=== PATIENT | female | born 1935 | race Caucasian/White ===

== ENCOUNTER 2016-10-23 07:52 | Inpatient (IN) | payer OTHER ==
[2016-10-23] VITALS (8 sets, daily range): BP systolic 124–185; BP diastolic 65–81; PULSE 72–128; RESP 17–24; Ht 162.6 cm; Wt 80.0 kg
[~2016-10-23] VITALS: Ht 162.6 cm; Wt 80.0 kg
[~2016-10-23 07:52] MED LIST: ADV50050 INH; ALBU2.5V36 NEB; ASPI-664 PO; ATEN50TA PO; LOSA50TA2 PO; LOSA50TA6 PO; Montelukast Sodium PO; PRED20TA PO; SIMV20TA PO; TIOT18CA INH
[2016-10-23] MEDS ORDERED: IPRATROPIUM (NEB) 0.5 MG/2.5 ML AMP INH STA ×2 (08:02→10:22)
[2016-10-23] MEDS ORDERED: METHYLPREDNISOLONE 125 MG INJ IV STA (08:02)
[2016-10-23] MEDS ORDERED: SOD CHLORIDE 0.9% 1,000 ML IV STA (08:02)
[2016-10-23] MEDS ORDERED: ALBUTEROL 0.5% (NEB) 2.5 MG/0.5 ML AMP INH STA ×2 (08:02→10:22)
[2016-10-23 08:26] LABS: AADO2 Arterial 111.2 mmHg (7.0-24.0); Allen Test ACCEPTAB; Arterial Base Excess 1.1 mmol/L (-3.0-3); Arterial COHb 0.9 % (0.0-3.0); Arterial Fraction of Oxyhgb 97.6 % (93.0-99.0); Arterial HCO3 28.1 mmol/L (22.0-26.0); Arterial MetHb 0.1 % (0.0-1.5); Arterial Total Hemglobin 14.2 g/dl (12.0-18.0); MODE MASK - SIMPLE
--- NOTE | 2016-10-23 09:10 | RADRPT ---
PROCEDURE: XR Chest. CLINICAL INDICATION: Shortness of breath TECHNIQUE: AP view of the chest was performed. COMPARISON: May 05, 2015, April 30, 2015, April 29, 2015 FINDINGS: Mild cardiomegaly and vascular congestion are again noted. No signs of pleural fluid or pneumothorax are seen. The osseous structures and soft tissues are unremarkable. IMPRESSION: Mild cardiomegaly and vascular congestion. No acute infiltrate. Overall, no interval change. RPTAT: QQ .Aracely Bose MD, MD Date Time Electronically viewed and signed by .Aracely Bose MD, MD on 10/23/2016 09:10 .F/
[2016-10-23 09:20] LABS: ALANINE AMINOTRANSFERASE 29 IU/L (13-69); ALBUMIN/GLOBULIN RATIO 1.02; ALKALINE PHOSPHATASE 87 IU/L (42-121); ANION GAP 19 (8-16); ASPARTATE AMINO TRANSFERASE 31 IU/L (15-46); BILIRUBIN,INDIRECT 0.5 mg/dl (0-1.1); BILIRUBIN,TOTAL 0.5 mg/dl (0.2-1.3); BLOOD UREA NITROGEN 15 mg/dl (7-20); CALCIUM 8.8 mg/dl (8.4-10.2); CARBON DIOXIDE 29 mmol/L (21-31); CHLORIDE 94 mmol/L (97-110); CREATINE KINASE 55 IU/L (23-200); CREATININE 0.67 mg/dl (0.44-1.00); GLUCOSE 211 mg/dl (70-220); POTASSIUM 4.2 mmol/L (3.5-5.1); SODIUM 138 mmol/L (135-144); TOTAL PROTEIN 7.9 g/dl (6.1-8.1)
[2016-10-23] MEDS ORDERED: ACETAMINOPHEN 500 MG TAB PO STA (09:21)
[2016-10-23 09:31] LABS: B-TYPE NATRIURETIC PEPTIDE 505 PG/ML (0-450); BASOPHILS % 0.1 % (0.0-2.0); CK-MB 0.71 ng/ml (0.0-2.4); EOSINOPHILS % 0.2 % (0.0-7.0); HEMATOCRIT 42.2 % (37.0-47.0); HEMOGLOBIN 13.5 g/dl (12.0-16.0); LYMPHOCYTES # 1.9 10^3/ul (0.8-2.9); LYMPHOCYTES % 19.7 % (15.0-51.0); MEAN CORPUSCULAR HEMOGLOBIN 28.1 pg (29.0-33.0); MEAN CORPUSCULAR VOLUME 87.7 fl (82.0-101.0); MEAN PLATELET VOLUME 8.8 fl (7.4-10.4); MONOCYTE # 1.4 10^3/ul (0.3-0.9); MONOCYTES % 14.9 % (0.0-11.0); NEUTROPHILS % 64.6 % (39.0-77.0); PLATELET COUNT 249 10^3/UL (140-415); RED BLOOD COUNT 4.81 10^6/ul (4.20-5.40); RED CELL DISTRIBUTION WIDTH 13.4 % (11.5-14.5); WHITE BLOOD COUNT 9.4 10^3/ul (4.8-10.8)
[2016-10-23 09:32] LABS: TROPONIN-I < 0.012 ng/ml (0.00-0.12)
[2016-10-23] MEDS ORDERED: ACETAMINOPHEN 325 MG TAB PO PRN ×2 (10:30→11:00)
[2016-10-23] MEDS ORDERED: ONDANSETRON 4 MG INJ IV PRN (10:30)
[2016-10-23] MEDS ORDERED: MONT10TA24 PO (10:53)
[2016-10-23] MEDS ORDERED: BISACODYL 10 MG SUPP PR PRN (11:00)
[2016-10-23] MEDS ORDERED: BISACODYL (EC) 5 MG TAB PO PRN (11:00)
[2016-10-23] MEDS ORDERED: NACL 0.9% 3 ML SYG IV SCH (11:00)
[2016-10-23] MEDS ORDERED: MAGNESIUM HYDROXIDE 30ML CUP PO PRN (11:00)
[2016-10-23] MEDS ORDERED: DOCUSATE SODIUM 100 MG CAP PO PRN (11:00)
--- NOTE | 2016-10-23 11:08 | ERA ---
ER Documentation Chief Complaint Date/Time DATE: 10/23/16 TIME: 11:02 Chief Complaint sob hx asthma HPI This is an 81-year-old Nigerian-speaking female with a known history of asthma and COPD that presents to the emergency department complaining of difficulty in breathing for the past 24 hours. The patient did not have an inhaler and she ran out of this several weeks ago. Her son indicates that throughout the night the patient's wheezing significantly worsened. She has not had a productive or nonproductive cough. She has remained afebrile with no shaking or chills. She denies any chest pain or pressure that radiates to the neck arm back or jaw. She denies any swelling of her lower extremities. She has never required intubation in the past but has had previous hospitalizations throughout the year for severe asthma. The patient does not smoke tobacco. She denies any recent travel or prolonged immobilization and has no shortness of breath at rest or exertion ROS All systems reviewed and are negative except as per history of present illness. Medications Home Meds Active Scripts Tiotropium [place]* (Spiriva*) 1 Inh Inha, 1 INH INH DAILY, #1 Prov:JAMMIE MKA 05/08/15 Salmeterol Xinaf-Fluticasone* (Advair*) 1 Inh Inha, 1 INH INH BID, #1 Prov:JAMMIE MAK 05/08/15 Albuterol Sulfate* (Albuterol Sulfate* Neb) 0.5%-0.5 Ml Neb, 2.5 MG NEB DAILY Y for WHEEZING AND SOB for 30 Days, EA 1 Refill Prov:SON FARRAR S. 02/06/14 Atenolol* (Atenolol*) 50 Mg Tablet, 50 MG PO DAILY for 30 Days, TAB 1 Refill Prov:SON FARRAR S. 02/06/14 Aspirin* (Aspirin* EC) 81 Mg Tablet.dr, 81 MG PO DAILY for 30 Days, TAB 1 Refill Prov:SON FARRAR S. 02/06/14 Losartan Potassium* (Losartan Potassium*) 50 Mg Tablet, 50 MG PO DAILY for 30 Days, 1 Refill Prov:SON FARRAR S. 02/06/14 Simvastatin* (Zocor*) 20 Mg Tablet, 20 MG PO DAILY for 30 Days, 1 Refill Prov:SON FARRAR 02/06/14 Reported Medications Montelukast Sodium* (Montelukast Sodium*) 10 Mg Tablet, 10 MG PO QHS, #30 TAB 10/23/16 Discontinued Scripts [Montelukast Sodium] 10 MG TAB No Conflict Check, 10 MG PO HS, TAB Prov:JAMMIE MAK 05/08/15 Prednisone (Prednisone) 20 Mg Tab, 20 MG PO DAILY, #30 TAB Prov:JAMMIE MAK 05/08/15 Losartan Potassium* (Cozaar*) 50 Mg Tab, 100 MG PO DAILY for 30 Days, TAB Prov:JERSON MAKA 05/08/15 Allergies Allergies: Coded Allergies: No Known Allergy (Unverified , 10/23/16) PMhx/Soc History of Surgery: Yes (cholecystectomy, abdominal hernia repair) Anesthesia Reaction: No Hx Neurological Disorder: No Hx Respiratory Disorders: Yes (Asthma) Hx Cardiac Disorders: Yes (HTN) Hx Psychiatric Problems: No Hx Miscellaneous Medical Probl: Yes (DM) Hx Alcohol Use: No Hx Substance Use: No Hx Tobacco Use: No Smoking Status: Never smoker Physical Exam Vitals Vital Signs Date Time Temp Pulse Resp B/P Pulse Ox O2 Delivery O2 Flow Rate FiO2 10/23/16 10:17 123 28 168/66 96 Nasal Cannula 3.0 10/23/16 08:17 2.0 10/23/16 08:15 126 23 95 Nasal Cannula 2.0 10/23/16 08:09 125 29 157/99 97 Nasal Cannula 2.0 10/23/16 08:09 Nasal Cannula 2.0 10/23/16 07:53 100.7 133 26 190/84 88 Physical Exam Constitutional:Well-developed. Well-nourished. HEENT:Normocephalic. Atraumatic.Pupils were equal round reactive to light. Moist mucous membranes.No tonsillar exudates. Neck: No nuchal rigidity. No lymphadenopathy. No posterior cervical spine tenderness or step-offs. Respiratory: Patient was tachypneic. Using accessory muscles of respiration. Unable to speak more than 1 word at a time before becoming short of breath. Wheezing heard on end auscultation bilaterally. cardiovascular: Regular rate regular rhythm.No murmurs. No rubs were appreciated.S1, S2 normal. Distal pulses are palpable 2+ bilaterally. GI: Abdomen was soft. Nontender. Non Distended. No pulsatile abdominal masses or bruits. No rebound. No guarding. Bowel sounds were present and normal. Muscle skeletal: Full range of motion of both the upper and lower extremities bilaterally.Normal muscle tone.No assymetrical calf tenderness or swelling. Skin: No petechia, no purpura. No lesions on the palms or the soles of the feet. No maculopapular rash. NEURO: Patient was alert, awake, orientated x3.No facial droop. Gait observed and normal with no ataxia.Speech had regular rate and rhythm. No focal neurological deficits. Result Diagram: 10/23/16 0804 10/23/16 0804 Results 24 hrs Laboratory Tests Test 10/23/16 08:02 10/23/16 08:04 Blood Gas Specimen Source Blood arterial Arterial Blood Date Drawn 10/23/2016 8:20:00 AM Arterial Blood pH (Temp corrected) 7.330 Arterial Blood pCO2 (Temp correct) 54.6mmhg Arterial Blood pO2 (Temp corrected) 147.5mmHG Arterial Blood HCO3 28.1mmol/L Arterial Blood Base Excess 1.1mmol/L Arterial Blood Oxygen Saturation 98.6mmHG Celestine Test ACCEPTAB Arterial Blood Gas Puncture Site Right Radial Arterial Blood Carboxyhemoglobin 0.9% Arterial Blood Methemoglobin 0.1% Blood Gas A-a O2 Differential 111.2mmHg Oxyhemoglobin Percent 97.6% Total Hemoglobin 14.2g/dl Blood Gas Temperature 37.0C Blood Gas Modality MASK - SIMPLE FiO2 45.0% Blood Gas Notified Whom RT Blood Gas Notified Time 10/23/2016 8:26:25 AM White Blood Count 9.410^3/ul Red Blood Count 4.8110^6/ul Hemoglobin 13.5g/dl Hematocrit 42.2% Mean Corpuscular Volume 87.7fl Mean Corpuscular Hemoglobin 28.1pg Mean Corpuscular Hemoglobin Concent 32.0g/dl Red Cell Distribution Width 13.4% Platelet Count 53877^3/UL Mean Platelet Volume 8.8fl Neutrophils % 64.6% Lymphocytes % 19.7% Monocytes % 14.9% Eosinophils % 0.2% Basophils % 0.1% Nucleated Red Blood Cells % 0.0/100WBC Neutrophils # (Manual) 6.110^3/ul Lymphocytes # 1.910^3/ul Monocytes # 1.410^3/ul Eosinophils # 0.010^3/ul Basophils # 0.010^3/ul Nucleated Red Blood Cells # 0.010^3/ul Sodium Level 138mmol/L Potassium Level 4.2mmol/L Chloride Level 94mmol/L Carbon Dioxide Level 29mmol/L Anion Gap 19 Blood Urea Nitrogen 15mg/dl Creatinine 0.67mg/dl Glucose Level 211mg/dl Calcium Level 8.8mg/dl Total Bilirubin 0.5mg/dl Direct Bilirubin 0.00mg/dl Indirect Bilirubin 0.5mg/dl Aspartate Amino Transf (AST/SGOT) 31IU/L Alanine Aminotransferase (ALT/SGPT) 29IU/L Alkaline Phosphatase 87IU/L Creatine Kinase 55IU/L Creatine Kinase Index 1.3 Creatinine Kinase MB (Mass) 0.71ng/ml Troponin I < 0.012ng/ml B-Type Natriuretic Peptide 505PG/ML Total Protein 7.9g/dl Albumin 4.0g/dl Globulin 3.90g/dl Albumin/Globulin Ratio 1.02 Current Medications Medications (Trade) Dose Ordered Sig/Mike Route PRN Reason Start Time Stop Time Status Last Admin Dose Admin Sodium Chloride (NS) 1,000 ml @ 1,000 mls/hr Q1H STAT IV 10/23/16 08:02 10/23/16 09:01 DC 10/23/16 08:27 Albuterol (Proventil 0.5% (Neb)) 10 mg ONCE STAT INH 10/23/16 08:02 10/23/16 08:07 DC 10/23/16 08:15 Ipratropium [place] (Atrovent 0.02% (Neb)) 1 mg ONCE STAT INH 10/23/16 08:02 10/23/16 08:07 DC 10/23/16 08:15 Methylprednisolone Sodium Succinate (Solu-Medrol) 125 mg ONCE STAT IV 10/23/16 08:02 10/23/16 08:07 DC 10/23/16 08:27 Acetaminophen (Tylenol Tab) 1,000 mg ONCE STAT PO 10/23/16 09:21 10/23/16 09:24 DC 10/23/16 09:49 Albuterol (Proventil 0.5% (Neb)) 10 mg ONCE STAT INH 10/23/16 10:22 10/23/16 10:23 DC Ipratropium [place] (Atrovent 0.02% (Neb)) 1 mg ONCE STAT INH 10/23/16 10:22 10/23/16 10:23 DC Ondansetron HCl (Zofran Inj) 4 mg ER BRIDGE PRN IV NAUSEA AND/OR VOMITING 10/23/16 10:30 10/24/16 10:29 Acetaminophen (Tylenol Tab) 650 mg ER BRIDGE PRN PO MILD PAIN/FEVER 10/23/16 10:30 10/24/16 10:29 IV Flush (NS 3 ml) 3 ml PER PROTOCOL IV 10/23/16 11:00 UNV Acetaminophen (Tylenol Tab) 650 mg Q6H PRN PO PAIN LEVEL 1-3 OR FEVER 10/23/16 11:00 UNV Acetaminophen/ Hydrocodone Bitart ([place] (5/325)) 1 tab Q6H PRN PO PAIN LEVEL 4-6 10/23/16 11:00 UNV Docusate Sodium (Colace) 100 mg Q12H PRN PO CONSTIPATION 10/23/16 11:00 UNV Magnesium Hydroxide (Milk Of Mag) 30 ml DAILY PRN PO CONSTIPATION 10/23/16 11:00 UNV Bisacodyl (Dulcolax) 5 mg DAILY PRN PO CONSTIPATION 10/23/16 11:00 UNV Bisacodyl (Dulcolax Supp) 10 mg DAILY PRN [place] CONSTIPATION 10/23/16 11:00 UNV Enoxaparin Sodium (Lovenox) 40 mg DAILY SC 10/24/16 09:00 UNV Albuterol/ Ipratropium (Duoneb) 3 ml Q4H RESP THERAPY NEB 10/23/16 13:00 UNV Prednisone (Prednisone) 40 mg DAILY PO 10/24/16 09:00 UNV Procedures/MDM The patient presented to the emergency department with dyspnea. My differential diagnosis included but was not limited to upper airway obstruction, CHF, pulmonary embolism, cardiac ischemia, pneumonia, pneumothorax, anemia, drug overdose, pulmonary edema, COPD or asthma. Due to the patient's severe dyspnea she immediately had IV access established by nursing staff was placed in a toolmaker grade three with continuous pulse oximetry. The patient received continuous nebulizer treatments of albuterol and Atrovent. Chest radiograph reviewed by myself showed mild pulmonary vascular congestion with no infiltrates. The patient's BNP was slightly elevated at 505 but the patient's son states the patient does not have a past history of congestive heart failure. Therefore I felt the patient's symptoms were more likely result of his severe asthma exacerbation. After the continuous nebulizer treatment the patient's wheezing had improved she was now speaking in full complete sentences but tachypnea still persisted and therefore did feel she required admission for further continuous nebulizer treatments. The patient will be admitted to the telemetry service given that she will be on continuous nebulizer treatments and has to be monitored for adverse complication such as tachycardia. The patient had no signs of an infectious process such as pneumonia. She did receive 125 mg of Solu-Medrol intravenously 12 Lead EKG tracing ordered and reviewed by myself showed: Sinus tachycardia 128 bpm and no arrhythmia. AK interval normal. QRS duration normal. No ST segment elevation No ST segment depression. No changes consistent with acute ischemia. The patient will be admitted in serious condition to the hospitalist Dr. Wiggins with an anticipated stay of greater than 2 midnights. Departure Diagnosis: Primary Impression: Severe asthma with acute exacerbation Condition: Serious JULIAN BARRIOS Oct 23, 2016 11:08
--- NOTE | 2016-10-23 11:29 | HP ---
Date/Time of Note Date/Time of Note DATE: 10/23/16 TIME: 11:27 Assessment/Plan VTE Prophylaxis VTE Prophylaxis Intervention: SCD's Assessment/Plan Assessment/Plan 81 yo F with hx asthma presents with wheezing, concerning for asthma exacerbation PLAN steroids, nebs, peak flows no compelling indication for abx cont home inhalers and singulair cont home BP, cholesterol meds, asa general diet DVT prophx HPI/ROS Admit Date/Time Admit Date/Time Hx of Present Illness CC SOB HPI 81 yo F with pmhx asthma presents with 1 day of SOB. Unable to obtain much hx as pt receiving neb at time of my clinical encounter PMH/Family/Social Past Medical History asthma, HTN, HL Social History Smoking Status: Never smoker Exam/Review of Systems Vital Signs Vitals Vital Signs Date Time Temp Pulse Resp B/P Pulse Ox O2 Delivery O2 Flow Rate FiO2 10/23/16 10:17 123 28 168/66 96 Nasal Cannula 3.0 10/23/16 07:53 100.7 Exam Exam nad eomi mmm getting neb mod wheezing in all carlos no rashes no edema labs reviewed CXR with no infiltrate. BNP noted Labs Result Diagram: 10/23/16 0804 10/23/16 0804 Medications Medications Current Medications Acetaminophen (Tylenol Tab) 650 mg Q6H PRN PO PAIN LEVEL 1-3 OR FEVER; Start at 11:00; Status UNV Acetaminophen/ Hydrocodone Bitart ([place] (5/325)) 1 tab Q6H PRN PO PAIN LEVEL 4 -6; Start 10/23/16 at 11:00; Status UNV Docusate Sodium (Colace) 100 mg Q12H PRN PO CONSTIPATION; Start 10/23/16 at 11: 00; Status UNV Magnesium Hydroxide (Milk Of Mag) 30 ml DAILY PRN PO CONSTIPATION; Start at 11:00; Status UNV Bisacodyl (Dulcolax) 5 mg DAILY PRN PO CONSTIPATION; Start 10/23/16 at 11:00; Status UNV Bisacodyl (Dulcolax Supp) 10 mg DAILY PRN [place] CONSTIPATION; Start 10/23/16 at 11 :00; Status UNV Enoxaparin Sodium (Lovenox) 40 mg DAILY SC ; Start 10/24/16 at 09:00; Status UNV Prednisone (Prednisone) 40 mg DAILY PO ; Start 10/24/16 at 09:00; Status UNV HERMAN PROCTOR MD Oct 23, 2016 11:29
[2016-10-23] MEDS ORDERED: ATENOLOL 50 MG TAB PO ONE (12:30)
[2016-10-23] MEDS ORDERED: LOSARTAN 50 MG TAB PO ONE (12:30)
[2016-10-23 12:44] LABS: ADD UMIC YES; UR ASCORBIC ACID NEGATIVE (NEGATIVE); UR BILIRUBIN (Dip) NEGATIVE (NEGATIVE); UR BLOOD (Dip) 2+ mg/dL (NEGATIVE); UR CLARITY CLEAR (CLEAR); UR COLOR YELLOW (YELLOW); UR GLUCOSE (Dip) NEGATIVE (NEGATIVE); UR KETONES (Dip) NEGATIVE (NEGATIVE); UR LEUKOCYTE ESTERASE (Dip) NEGATIVE Leu/ul (NEGATIVE); UR NITRITE (Dip) NEGATIVE (NEGATIVE); UR RBC 15 /HPF (0-5); UR SPECIFIC GRAVITY (Dip) 1.015 (1.003-1.030); UR SQUAMOUS EPITHELIAL CELL FEW /HPF (FEW); UR TOTAL PROTEIN (Dip) NEGATIVE (NEGATIVE); UR UROBILINOGEN (Dip) NEGATIVE (NEGATIVE)
[2016-10-23] MEDS: ALBUTEROL/IPRATROPIUM (NEB) 3 ML AMP NEB SCH ×3 (12:55→21:17)
[2016-10-23] MEDS ORDERED: METF500T4 PO (18:13)
[2016-10-23] MEDS ORDERED: DEXTROSE 50% 50 ML SYRINGE IV PRN ×2 (18:30)
[2016-10-23] MEDS ORDERED: GLUCOSE GEL 15 GRAM TUBE PO PRN ×2 (18:30)
[2016-10-23] MEDS ORDERED: GLUCAGON 1 MG INJ IM PRN (18:30)
[2016-10-23] MEDS ORDERED: GLUCOSE GEL 15 GRAM TUBE BUCCAL PRN (18:30)
[2016-10-23] MEDS: SALMETEROL/FLUTICASONE 500/50 INHA INH SCH (20:53)
[2016-10-23] MEDS: ATORVASTATIN 10 MG TAB PO SCH (20:53)
[2016-10-23] MEDS: MONTELUKAST 10 MG TAB PO SCH (20:53)
[2016-10-23] MEDS: INSULIN ASPART [NOVOLOG] 3 ML PEN SC SCH (21:02)
[2016-10-23] MEDS: HYDROCODONE/APAP (5/325) TAB PO PRN (23:01)
[2016-10-24] VITALS (10 sets, daily range): BP systolic 131–141; BP diastolic 63–71; PULSE 75–90; RESP 17–19
[2016-10-24] MEDS: ALBUTEROL/IPRATROPIUM (NEB) 3 ML AMP NEB SCH ×3 (00:59→21:12)
[2016-10-24] MEDS: ACCU-CHEK XX SCH ×2 (02:00→02:57)
[2016-10-24] MEDS: INSULIN ASPART [NOVOLOG] 3 ML PEN SC SCH ×4 (07:55→21:55)
[2016-10-24] MEDS: ASPIRIN (EC) 81 MG TAB PO SCH (08:22)
[2016-10-24] MEDS: LOSARTAN 50 MG TAB PO SCH (08:23)
[2016-10-24] MEDS: SALMETEROL/FLUTICASONE 500/50 INHA INH SCH ×2 (08:24→21:45)
[2016-10-24] MEDS: TIOTROPIUM 18 MCG CAPSULE INHA DEV INH SCH (08:25)
[2016-10-24] MEDS: ENOXAPARIN 40 MG/0.4 ML SYG SC SCH (08:28)
[2016-10-24] MEDS ORDERED: predniSONE 20 MG TAB PO SCH (09:00)
[2016-10-24] MEDS ORDERED: ATENOLOL 50 MG TAB PO SCH (09:00)
--- NOTE | 2016-10-24 13:57 | PN ---
Date/Time of Note Date/Time of Note DATE: 10/24/16 TIME: 13:51 Assessment/Plan VTE Prophylaxis VTE Prophylaxis Intervention: LMWH Lines/Catheters IV Catheter Type (from Nrsg): Saline Lock Assessment/Plan Chief Complaint/Hosp Course Assessment/Plan: 81 yo F with hx asthma presents with wheezing, concerning for asthma exacerbation 1. Asthma exacerbation: Slowly improving, patient still having some wheezing however. -Switch to IV steroids, continue nebs every 4 hours, peak flows -We will get PT consult - cont home inhalers and singulair 2. Hypertension: stable presently - cont home BP, cholesterol meds, asa 3. Diabetes: Check A1c, continue sliding scale. Problems: Subjective 24 Hr Interval Summary Free Text/Dictation Patient says she has some slight improvement in her shortness of breath symptoms , but still short of breath overall. Exam/Review of Systems Vital Signs Vitals Vital Signs Date Time Temp Pulse Resp B/P Pulse Ox O2 Delivery O2 Flow Rate FiO2 10/24/16 12:02 77 10/24/16 11:10 98.7 18 141/66 97 10/24/16 04:40 Nasal Cannula 2.0 10/23/16 16:40 21 Intake and Output 10/23/16 10/23/16 10/24/16 15:00 23:00 07:00 Intake Total 580 ml 800 ml Balance 580 ml 800 ml Exam Lying in bed, Nad eomi S1, S2 heard mod wheezing left greater than right no rashes no edema Results Result Diagram: 10/23/16 0804 10/23/16 0804 Results 24 hrs Laboratory Tests Test 10/23/16 18:18 10/23/16 20:52 10/24/16 02:47 10/24/16 08:15 Bedside Glucose 226 H 207 198 120 Test 10/24/16 12:35 Bedside Glucose 175 Medications Medications Current Medications Acetaminophen (Tylenol Tab) 650 mg Q6H PRN PO PAIN LEVEL 1-3 OR FEVER; Start at 11:00 Acetaminophen/ Hydrocodone Bitart ([place] (5/325)) 1 tab Q6H PRN PO PAIN LEVEL 4 -6 Last administered on 10/23/16t 23:01; Admin Dose 1 TAB; Start 10/23/16 at 11: 00 Docusate Sodium (Colace) 100 mg Q12H PRN PO CONSTIPATION; Start 10/23/16 at 11: 00 Magnesium Hydroxide (Milk Of Mag) 30 ml DAILY PRN PO CONSTIPATION; Start at 11:00 Bisacodyl (Dulcolax) 5 mg DAILY PRN PO CONSTIPATION; Start 10/23/16 at 11:00 Bisacodyl (Dulcolax Supp) 10 mg DAILY PRN [place] CONSTIPATION; Start 10/23/16 at 11 :00 Enoxaparin Sodium (Lovenox) 40 mg DAILY SC Last administered on 10/24/16 08:28 ; Admin Dose 40 MG; Start 10/24/16 at 09:00 Prednisone (Prednisone) 40 mg DAILY PO Last administered on 10/24/16 08:22; Admin Dose 40 MG; Start 10/24/16 at 09:00 Aspirin (Halfprin) 81 mg DAILY PO Last administered on 10/24/16 08:22; Admin Dose 81 MG; Start 10/24/16 at 09:00 Atenolol (Tenormin) 50 mg DAILY PO Last administered on 10/24/16 08:23; Admin Dose 50 MG; Start 10/24/16 at 09:00 Losartan Potassium (Cozaar) 50 mg DAILY PO Last administered on 10/24/16 08:23 ; Admin Dose 50 MG; Start 10/24/16 at 09:00 Montelukast Sodium (Singulair) 10 mg QHS PO Last administered on 10/23/16 20: 53; Admin Dose 10 MG; Start 10/23/16 at 21:00 Salmeterol Xinafoate/ Fluticasone (Advair 500/50 Diskus) 1 inh BID INH Last administered on 10/24/16 08:24; Admin Dose 1 INH; Start 10/23/16 at 21:00 Tiotropium [place] (Spiriva) 1 inh DAILY INH Last administered on 10/24/16 08: 25; Admin Dose 1 INH; Start 10/24/16 at 09:00 Atorvastatin Calcium (Lipitor) 10 mg DAILY@21 PO Last administered on 20:53; Admin Dose 10 MG; Start 10/23/16 at 21:00 Diagnostic Test (Pha) (Accu-Chek) 1 ea 02 XX Last administered on 10/24/16 02: 57; Admin Dose 1 EA; Start 10/24/16 at 02:00 Diagnostic Test (Pha) (Accu-Chek) 1 ea 02 XX ; Start 10/24/16 at 02:00 Miscellaneous Information 1 ea NOTE XX ; Start 10/23/16 at 18:30 Glucose (Glutose) 15 gm Q15M PRN PO DECREASED GLUCOSE; Start 10/23/16 at 18:30 Glucose (Glutose) 22.5 gm Q15M PRN PO DECREASED GLUCOSE; Start 10/23/16 at 18: 30 Dextrose (D50w Syringe) 25 ml Q15M PRN IV DECREASED GLUCOSE; Start 10/23/16 at 18:30 Dextrose (D50w Syringe) 50 ml Q15M PRN IV DECREASED GLUCOSE; Start 10/23/16 at 18:30 Glucagon (Glucagen) 1 mg Q15M PRN IM DECREASED GLUCOSE; Start 10/23/16 at 18:30 Glucose (Glutose) 15 gm Q15M PRN BUCCAL DECREASED GLUCOSE; Start 10/23/16 at 18 :30 SON FARRAR Oct 24, 2016 13:57
[2016-10-24] MEDS ORDERED: LEVOFLOXACIN 500MG/D5W (PMX) 100 ML IVPB SCH (14:00)
[2016-10-24] MEDS: METHYLPREDNISOLONE 40 MG INJ IV SCH ×2 (14:00→18:02)
[2016-10-24] MEDS ORDERED: hydrALAzine 20 MG INJ IV PRN (14:00)
[2016-10-24] MEDS: HYDROCODONE/APAP (5/325) TAB PO PRN (18:00)
[2016-10-24] MEDS: ATORVASTATIN 10 MG TAB PO SCH (21:45)
[2016-10-24] MEDS: MONTELUKAST 10 MG TAB PO SCH (21:45)
[2016-10-25] VITALS (13 sets, daily range): BP systolic 133–156; BP diastolic 62–81; PULSE 75–103; RESP 17–19
[2016-10-25] MEDS: ALBUTEROL/IPRATROPIUM (NEB) 3 ML AMP NEB SCH ×2 (00:54→05:26)
[2016-10-25] MEDS: METHYLPREDNISOLONE 40 MG INJ IV SCH ×4 (01:14→17:49)
[2016-10-25] MEDS: ACCU-CHEK XX SCH ×2 (02:38)
[2016-10-25] MEDS: HYDROCODONE/APAP (5/325) TAB PO PRN (03:00)
[2016-10-25] MEDS ORDERED: INSULIN ASPART [NOVOLOG] 3 ML PEN SC ONE (03:00)
[2016-10-25 07:47] LABS: BASOPHILS % 0.1 % (0.0-2.0); HEMATOCRIT 42.5 % (37.0-47.0); HEMOGLOBIN 12.9 g/dl (12.0-16.0); LYMPHOCYTES # 1.5 10^3/ul (0.8-2.9); MEAN CORPUSCULAR HEMOGLOBIN 27.7 pg (29.0-33.0); MEAN CORPUSCULAR HGB CONC 30.4 g/dl (32.0-37.0); MEAN CORPUSCULAR VOLUME 91.2 fl (82.0-101.0); MEAN PLATELET VOLUME 8.9 fl (7.4-10.4); MONOCYTE # 0.4 10^3/ul (0.3-0.9); MONOCYTES % 3.3 % (0.0-11.0); NEUTROPHILS % 81.7 % (39.0-77.0); PLATELET COUNT 252 10^3/UL (140-415); RED BLOOD COUNT 4.66 10^6/ul (4.20-5.40); RED CELL DISTRIBUTION WIDTH 13.7 % (11.5-14.5); WHITE BLOOD COUNT 11.5 10^3/ul (4.8-10.8)
[2016-10-25] MEDS: INSULIN ASPART [NOVOLOG] 3 ML PEN SC SCH ×4 (07:55→21:00)
[2016-10-25] MEDS: LEVALBUTEROL (NEB) 0.63 MG/3 ML AMP HHN SCH ×4 (08:08→21:04)
[2016-10-25 08:17] LABS: CREATININE 0.61 mg/dl (0.44-1.00)
[2016-10-25] MEDS: SALMETEROL/FLUTICASONE 500/50 INHA INH SCH ×2 (08:31→22:14)
[2016-10-25] MEDS: TIOTROPIUM 18 MCG CAPSULE INHA DEV INH SCH (08:31)
[2016-10-25] MEDS: LOSARTAN 50 MG TAB PO SCH (08:32)
[2016-10-25] MEDS: ASPIRIN (EC) 81 MG TAB PO SCH (08:32)
[2016-10-25] MEDS: INSULIN GLARGINE [LANtus] 3 ML PEN SC SCH (08:39)
[2016-10-25] MEDS: ENOXAPARIN 40 MG/0.4 ML SYG SC SCH (08:40)
--- NOTE | 2016-10-25 11:48 | PN ---
Date/Time of Note Date/Time of Note DATE: 10/25/16 TIME: 11:41 Assessment/Plan VTE Prophylaxis VTE Prophylaxis Intervention: LMWH Lines/Catheters IV [facility] Saline Lock Assessment/Plan Chief Complaint/Hosp Course Assessment/Plan: 81 yo F with hx asthma presents with wheezing, concerning for asthma exacerbation 1. Asthma exacerbation: Slowly improving, patient still having some wheezing however. -Continue IV steroids, continue nebs every 4 hours, peak flows -Follow-up PT consult - cont home inhalers and singulair 2. Hypertension: stable presently - cont home BP, cholesterol meds, asa 3. Diabetes: Follow-up A1c, continue sliding scale. Problems: Subjective 24 Hr Interval Summary Free Text/Dictation Patient states she has less shortness of breath, although not quite back to "normal" yet. Worked with physical therapy earlier today. Exam/Review of Systems Vital Signs Vitals Vital Signs Date Time Temp Pulse Resp B/P Pulse Ox O2 Delivery O2 Flow Rate FiO2 10/25/16 11:13 97.8 100 18 133/63 93 10/25/16 08:09 2.0 10/25/16 08:09 Nasal Cannula 10/23/16 16:40 21 Intake and Output 10/24/16 10/24/16 10/25/16 15:00 23:00 07:00 Intake Total 720 ml 1000 ml Balance 720 ml 1000 ml Exam Lying in bed, Nad eomi S1, S2 heard Less wheezing, but still slightly present left greater than right no rashes no edema Results Result Diagram: 10/25/16 0627 10/25/16 0627 Results 24 hrs Laboratory Tests Test 10/24/16 12:35 10/24/16 15:00 10/24/16 18:04 10/24/16 21:44 Bedside Glucose 175 190 182 Hemoglobin A1c 6.2 H Test 10/25/16 02:36 10/25/16 02:37 10/25/16 06:27 10/25/16 08:28 Bedside Glucose 225 H 245 H 200 White Blood Count 11.5 #H Red Blood Count 4.66 Hemoglobin 12.9 Hematocrit 42.5 Mean Corpuscular Volume 91.2 Mean Corpuscular Hemoglobin 27.7 L Mean Corpuscular Hemoglobin Concent 30.4 L Red Cell Distribution Width 13.7 Platelet Count 252 Mean Platelet Volume 8.9 Neutrophils % 81.7 H Lymphocytes % 13.0 L Monocytes % 3.3 Eosinophils % 0.0 Basophils % 0.1 Nucleated Red Blood Cells % 0.0 Neutrophils # (Manual) 9.4 H Lymphocytes # 1.5 Monocytes # 0.4 Eosinophils # 0.0 Basophils # 0.0 Nucleated Red Blood Cells # 0.0 Sodium Level 136 Potassium Level 5.0 Chloride Level 89 L Carbon Dioxide Level 35 H Anion Gap 17 H Blood Urea Nitrogen 16 Creatinine 0.61 Glucose Level 180 Calcium Level 9.0 Medications Medications Current Medications Acetaminophen (Tylenol Tab) 650 mg Q6H PRN PO PAIN LEVEL 1-3 OR FEVER; Start at 11:00 Acetaminophen/ Hydrocodone Bitart ([place] (5/325)) 1 tab Q6H PRN PO PAIN LEVEL 4 -6 Last administered on 10/25/16 03:00; Admin Dose 1 TAB; Start 10/23/16 at 11: 00 Docusate Sodium (Colace) 100 mg Q12H PRN PO CONSTIPATION; Start 10/23/16 at 11: 00 Magnesium Hydroxide (Milk Of Mag) 30 ml DAILY PRN PO CONSTIPATION; Start at 11:00 Bisacodyl (Dulcolax) 5 mg DAILY PRN PO CONSTIPATION; Start 10/23/16 at 11:00 Bisacodyl (Dulcolax Supp) 10 mg DAILY PRN [place] CONSTIPATION; Start 10/23/16 at 11 :00 Enoxaparin Sodium (Lovenox) 40 mg DAILY SC Last administered on 10/25/16 08:40 ; Admin Dose 40 MG; Start 10/24/16 at 09:00 Aspirin (Halfprin) 81 mg DAILY PO Last administered on 10/25/16 08:32; Admin Dose 81 MG; Start 10/24/16 at 09:00 Losartan Potassium (Cozaar) 50 mg DAILY PO Last administered on 10/25/16 08:32 ; Admin Dose 50 MG; Start 10/24/16 at 09:00 Montelukast Sodium (Singulair) 10 mg QHS PO Last administered on 10/24/16 21: 45; Admin Dose 10 MG; Start 10/23/16 at 21:00 Salmeterol Xinafoate/ Fluticasone (Advair 500/50 Diskus) 1 inh BID INH Last administered on 10/25/16 08:31; Admin Dose 1 INH; Start 10/23/16 at 21:00 Tiotropium [place] (Spiriva) 1 inh DAILY INH Last administered on 10/25/16 08: 31; Admin Dose 1 INH; Start 10/24/16 at 09:00 Atorvastatin Calcium (Lipitor) 10 mg DAILY@21 PO Last administered on 21:45; Admin Dose 10 MG; Start 10/23/16 at 21:00 Diagnostic Test (Pha) (Accu-Chek) 1 ea 02 XX Last administered on 10/25/16 02: 38; Admin Dose 1 EA; Start 10/24/16 at 02:00 Diagnostic Test (Pha) (Accu-Chek) 1 ea 02 XX Last administered on 10/25/16 02: 38; Admin Dose 1 EA; Start 10/24/16 at 02:00 Miscellaneous Information 1 ea NOTE XX ; Start 10/23/16 at 18:30 Glucose (Glutose) 15 gm Q15M PRN PO DECREASED GLUCOSE; Start 10/23/16 at 18:30 Glucose (Glutose) 22.5 gm Q15M PRN PO DECREASED GLUCOSE; Start 10/23/16 at 18: 30 Dextrose (D50w Syringe) 25 ml Q15M PRN IV DECREASED GLUCOSE; Start 10/23/16 at 18:30 Dextrose (D50w Syringe) 50 ml Q15M PRN IV DECREASED GLUCOSE; Start 10/23/16 at 18:30 Glucagon (Glucagen) 1 mg Q15M PRN IM DECREASED GLUCOSE; Start 10/23/16 at 18:30 Glucose (Glutose) 15 gm Q15M PRN BUCCAL DECREASED GLUCOSE; Start 10/23/16 at 18 :30 Methylprednisolone Sodium Succinate (Solu-Medrol) 40 mg Q6 IV Last administered on 10/25/16 05:50; Admin Dose 40 MG; Start 10/24/16 at 14:00 Hydralazine HCl 10 mg 10 mg Q6H PRN IV ELEVATED BLOOD PRESSURE; Start 10/24/16 at 14:00 Levofloxacin/ Dextrose (Levaquin 250 Mg/ D5W 50 ml (Pmx)) 50 ml @ 100 mls/hr Q24H IVPB ; Start 10/25/16 at 14:00 Insulin Glargine (Lantus) 10 unit DAILY@08 SC Last administered on 10/25/16t 08 :39; Admin Dose 10 UNIT; Start 10/25/16 at 08:00 SON FARRAR Oct 25, 2016 11:48
--- NOTE | 2016-10-25 13:37 | RADRPT ---
PROCEDURE: XR Chest. CLINICAL INDICATION: Crackles, shortness of breath TECHNIQUE: Single frontal chest x-ray. COMPARISON: 05/05/2015 FINDINGS: Cardiomegaly with calcific atherosclerosis of the aorta is present. . There is bibasilar atelectasi s present.. Prominent interstitial markings are present likely chronic or senescent in nature. The re are no alveolar infiltrates or effusions.. The osseous structures are intact. IMPRESSION: No acute cardiopulmonary disease. Bibasilar atelectasis. Chronic or senescent changes of the chest. RPTAT: JJ .Cruz Maciel MD, Date Time Electronically viewed and signed by .Cruz Maciel MD, on 10/25/2016 13:36 .L/
[2016-10-25] MEDS: LEVOFLOXACIN 250MG/D5W (PMX) 50 ML IVPB SCH (14:15)
[2016-10-25] MEDS: MONTELUKAST 10 MG TAB PO SCH (22:15)
[2016-10-25] MEDS: ATORVASTATIN 10 MG TAB PO SCH (22:15)
[2016-10-25] MEDS ORDERED: LEVALBUTEROL (NEB) 0.63 MG/3 ML AMP HHN PRN (22:30)
[2016-10-26] VITALS (13 sets, daily range): BP systolic 137–184; BP diastolic 72–97; PULSE 91–101; RESP 18–22
[2016-10-26] MEDS: LEVALBUTEROL (NEB) 0.63 MG/3 ML AMP HHN SCH ×6 (01:07→20:43)
[2016-10-26] MEDS: ACCU-CHEK XX SCH ×2 (01:23)
[2016-10-26] MEDS: METHYLPREDNISOLONE 40 MG INJ IV SCH ×4 (01:23→17:28)
[2016-10-26 08:14] LABS: BASOPHILS % 0.2 % (0.0-2.0); HEMATOCRIT 43.3 % (37.0-47.0); HEMOGLOBIN 13.6 g/dl (12.0-16.0); LYMPHOCYTES # 1.5 10^3/ul (0.8-2.9); LYMPHOCYTES % 13.2 % (15.0-51.0); MEAN CORPUSCULAR HEMOGLOBIN 27.8 pg (29.0-33.0); MEAN CORPUSCULAR HGB CONC 31.4 g/dl (32.0-37.0); MEAN CORPUSCULAR VOLUME 88.4 fl (82.0-101.0); MONOCYTE # 0.5 10^3/ul (0.3-0.9); MONOCYTES % 4.6 % (0.0-11.0); NEUTROPHILS % 81.1 % (39.0-77.0); PLATELET COUNT 299 10^3/UL (140-415); RED CELL DISTRIBUTION WIDTH 13.6 % (11.5-14.5); WHITE BLOOD COUNT 11.4 10^3/ul (4.8-10.8)
[2016-10-26 08:16] LABS: POSITIVE DIFF @See below
[2016-10-26] MEDS: INSULIN ASPART [NOVOLOG] 3 ML PEN SC SCH ×4 (08:37→21:02)
[2016-10-26] MEDS: INSULIN GLARGINE [LANtus] 3 ML PEN SC SCH (08:38)
[2016-10-26 08:54] LABS: CREATININE 0.62 mg/dl (0.44-1.00); POTASSIUM 4.6 mmol/L (3.5-5.1)
[2016-10-26] MEDS: ASPIRIN (EC) 81 MG TAB PO SCH (09:00)
[2016-10-26] MEDS: LOSARTAN 50 MG TAB PO SCH (09:01)
[2016-10-26] MEDS: SALMETEROL/FLUTICASONE 500/50 INHA INH SCH ×2 (09:01→20:39)
[2016-10-26] MEDS: TIOTROPIUM 18 MCG CAPSULE INHA DEV INH SCH (09:01)
[2016-10-26] MEDS: ENOXAPARIN 40 MG/0.4 ML SYG SC SCH (09:10)
[2016-10-26] MEDS: LEVOFLOXACIN 250MG/D5W (PMX) 50 ML IVPB SCH (14:00)
[2016-10-26] MEDS: AMLODIPINE 5 MG TAB PO SCH (17:29)
[2016-10-26] MEDS: ATORVASTATIN 10 MG TAB PO SCH (20:39)
[2016-10-26] MEDS: MONTELUKAST 10 MG TAB PO SCH (20:39)
[2016-10-27] VITALS (12 sets, daily range): BP systolic 114–143; BP diastolic 56–66; PULSE 86–100; RESP 16–21
[2016-10-27] MEDS: METHYLPREDNISOLONE 40 MG INJ IV SCH ×5 (00:07→23:37)
[2016-10-27] MEDS: LEVALBUTEROL (NEB) 0.63 MG/3 ML AMP HHN SCH ×6 (00:42→20:07)
[2016-10-27] MEDS: AMLODIPINE 5 MG TAB PO SCH ×3 (01:42→20:57)
[2016-10-27] MEDS: ACCU-CHEK XX SCH ×2 (01:42)
[2016-10-27 07:37] LABS: BASOPHILS % 0.1 % (0.0-2.0); HEMOGLOBIN 13.6 g/dl (12.0-16.0); LYMPHOCYTES # 1.8 10^3/ul (0.8-2.9); LYMPHOCYTES % 17.9 % (15.0-51.0); MEAN CORPUSCULAR HEMOGLOBIN 27.7 pg (29.0-33.0); MEAN CORPUSCULAR HGB CONC 32.4 g/dl (32.0-37.0); MEAN CORPUSCULAR VOLUME 85.5 fl (82.0-101.0); MONOCYTE # 0.6 10^3/ul (0.3-0.9); MONOCYTES % 6.4 % (0.0-11.0); NEUTROPHILS % 74.7 % (39.0-77.0); PLATELET COUNT 303 10^3/UL (140-415); RED BLOOD COUNT 4.91 10^6/ul (4.20-5.40); RED CELL DISTRIBUTION WIDTH 13.9 % (11.5-14.5); WHITE BLOOD COUNT 9.9 10^3/ul (4.8-10.8)
[2016-10-27 07:58] LABS: POSITIVE DIFF @See below
[2016-10-27 08:03] LABS: CALCIUM 8.6 mg/dl (8.4-10.2); CREATININE 0.51 mg/dl (0.44-1.00); POTASSIUM 3.9 mmol/L (3.5-5.1)
[2016-10-27] MEDS: LOSARTAN 50 MG TAB PO SCH (08:39)
[2016-10-27] MEDS: TIOTROPIUM 18 MCG CAPSULE INHA DEV INH SCH (08:40)
[2016-10-27] MEDS: SALMETEROL/FLUTICASONE 500/50 INHA INH SCH ×2 (08:40→20:57)
[2016-10-27] MEDS: ASPIRIN (EC) 81 MG TAB PO SCH (08:40)
[2016-10-27] MEDS: INSULIN ASPART [NOVOLOG] 3 ML PEN SC SCH ×4 (08:43→20:56)
[2016-10-27] MEDS: INSULIN GLARGINE [LANtus] 3 ML PEN SC SCH (08:44)
[2016-10-27] MEDS: ENOXAPARIN 40 MG/0.4 ML SYG SC SCH (08:45)
[2016-10-27] MEDS: LEVOFLOXACIN 250MG/D5W (PMX) 50 ML IVPB SCH (15:05)
--- NOTE | 2016-10-27 15:35 | PN ---
Date/Time of Note Date/Time of Note LATE ENTRY DATE: 10/26/16 Assessment/Plan VTE Prophylaxis VTE Prophylaxis Intervention: SCD's Lines/Catheters IV Catheter Type (from Nrs): Saline Lock Assessment/Plan Chief Complaint/Hosp Course Assessment and plan 1. Asthma with exacerbation. Continue IV steroids. Continue on DuoNeb. On Advair 500/50. Await for clinical improvement of respiratory status. Physical therapy to follow. 2. Essential hypertension. Appears stable at present. Continue antihypertensives and adjust needed 3. Diabetes. Continue insulin regimen. Stable at present. Disposition plan: Continue on broncho-dilators and steroid treatment. Monitor for clinical improvement. Discussed plan of care with Dr. Le Problems: Subjective 24 Hr Interval Summary Free Text/Dictation Still noted with some shortness of breath. reports dyspnea on exertion Exam/Review of Systems Vital Signs Vitals Vital Signs Date Time Temp Pulse Resp B/P Pulse Ox O2 Delivery O2 Flow Rate FiO2 10/27/16 15:17 98.0 69 18 125/58 99 10/27/16 14:27 Nasal Cannula 3.0 10/23/16 16:40 21 Intake and Output 10/26/16 10/26/16 10/27/16 15:00 23:00 07:00 Intake Total 750 ml 240 ml Balance 750 ml 240 ml Exam Constitutional: alert, oriented Psych: nl mood/affect Head: normocephalic Respiratory: wheezing Cardiovascular: regular rate and rhythm Gastrointestinal: non-tender, soft Musculoskeletal: nl extremities to inspection Neurological: DETECTIVE AND INTELLIGENCE ANALYST II-XII intact, nl mental status, nl speech Skin: nl turgor Results Result Diagram: 10/27/1643 10/27/16 0643 Results 24 hrs Laboratory Tests Test 10/26/16 17:28 10/26/16 20:37 10/27/16 01:41 10/27/16 06:43 Bedside Glucose 189 183 167 White Blood Count 9.9 Red Blood Count 4.91 Hemoglobin 13.6 Hematocrit 42.0 Mean Corpuscular Volume 85.5 Mean Corpuscular Hemoglobin 27.7 L Mean Corpuscular Hemoglobin Concent 32.4 Red Cell Distribution Width 13.9 Platelet Count 303 Mean Platelet Volume 9.0 Neutrophils % 74.7 Lymphocytes % 17.9 Monocytes % 6.4 Eosinophils % 0.0 Basophils % 0.1 Nucleated Red Blood Cells % 0.0 Neutrophils # (Manual) 7.4 Lymphocytes # 1.8 Monocytes # 0.6 Eosinophils # 0.0 Basophils # 0.0 Nucleated Red Blood Cells # 0.0 Sodium Level 137 Potassium Level 3.9 Chloride Level 89 L Carbon Dioxide Level 35 H Anion Gap 17 H Blood Urea Nitrogen 21 H Creatinine 0.51 Glucose Level 207 Calcium Level 8.6 Test 10/27/16 08:37 10/27/16 12:12 Bedside Glucose 246 H 268 H Medications Medications Current Medications Acetaminophen (Tylenol Tab) 650 mg Q6H PRN PO PAIN LEVEL 1-3 OR FEVER; Start at 11:00 Acetaminophen/ Hydrocodone Bitart ([place] (5/325)) 1 tab Q6H PRN PO PAIN LEVEL 4 -6 Last administered on 10/25/16 03:00; Admin Dose 1 TAB; Start 10/23/16 at 11: 00 Docusate Sodium (Colace) 100 mg Q12H PRN PO CONSTIPATION; Start 10/23/16 at 11: 00 Magnesium Hydroxide (Milk Of Mag) 30 ml DAILY PRN PO CONSTIPATION; Start at 11:00 Bisacodyl (Dulcolax) 5 mg DAILY PRN PO CONSTIPATION; Start 10/23/16 at 11:00 Bisacodyl (Dulcolax Supp) 10 mg DAILY PRN [place] CONSTIPATION; Start 10/23/16 at 11 :00 Enoxaparin Sodium (Lovenox) 40 mg DAILY SC Last administered on 10/27/16 08:45 ; Admin Dose 40 MG; Start 10/24/16 at 09:00 Aspirin (Halfprin) 81 mg DAILY PO Last administered on 10/27/16 08:40; Admin Dose 81 MG; Start 10/24/16 at 09:00 Losartan Potassium (Cozaar) 50 mg DAILY PO Last administered on 10/27/16 08:39 ; Admin Dose 50 MG; Start 10/24/16 at 09:00 Montelukast Sodium (Singulair) 10 mg QHS PO Last administered on 10/26/16 20: 39; Admin Dose 10 MG; Start 10/23/16 at 21:00 Salmeterol Xinafoate/ Fluticasone (Advair 500/50 Diskus) 1 inh BID INH Last administered on 10/27/16 08:40; Admin Dose 1 INH; Start 10/23/16 at 21:00 Tiotropium [place] (Spiriva) 1 inh DAILY INH Last administered on 10/27/16 08: 40; Admin Dose 1 INH; Start 10/24/16 at 09:00 Atorvastatin Calcium (Lipitor) 10 mg DAILY@21 PO Last administered on 20:39; Admin Dose 10 MG; Start 10/23/16 at 21:00 Diagnostic Test (Pha) (Accu-Chek) 1 ea 02 XX Last administered on 10/27/16 01: 42; Admin Dose 1 EA; Start 10/24/16 at 02:00 Diagnostic Test (Pha) (Accu-Chek) 1 ea 02 XX Last administered on 10/27/16 01: 42; Admin Dose 1 EA; Start 10/24/16 at 02:00 Miscellaneous Information 1 ea NOTE XX ; Start 10/23/16 at 18:30 Glucose (Glutose) 15 gm Q15M PRN PO DECREASED GLUCOSE; Start 10/23/16 at 18:30 Glucose (Glutose) 22.5 gm Q15M PRN PO DECREASED GLUCOSE; Start 10/23/16 at 18: 30 Dextrose (D50w Syringe) 25 ml Q15M PRN IV DECREASED GLUCOSE; Start 10/23/16 at 18:30 Dextrose (D50w Syringe) 50 ml Q15M PRN IV DECREASED GLUCOSE; Start 10/23/16 at 18:30 Glucagon (Glucagen) 1 mg Q15M PRN IM DECREASED GLUCOSE; Start 10/23/16 at 18:30 Glucose (Glutose) 15 gm Q15M PRN BUCCAL DECREASED GLUCOSE; Start 10/23/16 at 18 :30 Methylprednisolone Sodium Succinate (Solu-Medrol) 40 mg Q6 IV Last administered on 10/27/16 12:13; Admin Dose 40 MG; Start 10/24/16 at 14:00 Hydralazine HCl 10 mg 10 mg Q6H PRN IV ELEVATED BLOOD PRESSURE Last administered on 10/26/16 11:11; Admin Dose 10 MG; Start 10/24/16 at 14:00 Levofloxacin/ Dextrose (Levaquin 250 Mg/ D5W 50 ml (Pmx)) 50 ml @ 100 mls/hr Q24H IVPB Last administered on 10/27/16 15:05; Admin Dose 100 MLS/HR; Start at 14:00 Insulin Glargine (Lantus) 10 unit DAILY@08 SC Last administered on 10/27/16 08 :44; Admin Dose 10 UNIT; Start 10/25/16 at 08:00 Amlodipine Besylate (Norvasc) 5 mg BID PO Last administered on 10/27/16 08:39 ; Admin Dose 5 MG; Start 10/26/16 at 17:00 AN ORDONEZ Oct 27, 2016 15:35
--- NOTE | 2016-10-27 15:37 | PN ---
Date/Time of Note Date/Time of Note DATE: 10/27/16 TIME: 15:35 Assessment/Plan VTE Prophylaxis VTE Prophylaxis Intervention: SCD's Lines/Catheters IV [facility] (from [facility]): Saline Lock Assessment/Plan Chief Complaint/Hosp Course Assessment and plan 1. Asthma with exacerbation. Continue IV steroids. Continue on DuoNeb. On Advair 500/50. Await for clinical improvement of respiratory status. Continue with physical therapy and Occupational Therapy . 2. Essential hypertension. Appears stable at present. Continue antihypertensives and adjust needed. Stable 3. Diabetes. Continue insulin regimen. Stable at present. Disposition plan: Respiratory status slowly improving. Still with noted wheezing but less today. Anticipate discharge within the next 24 hours if medically stable Discussed plan of care with Dr. Le Problems: Subjective 24 Hr Interval Summary Free Text/Dictation Reports better breathing at this time. Patient ambulating with occupational therapist at this time Exam/Review of Systems Vital Signs Vitals Vital Signs Date Time Temp Pulse Resp B/P Pulse Ox O2 Delivery O2 Flow Rate FiO2 10/27/16 15:17 98.0 69 18 125/58 99 10/27/16 14:27 Nasal Cannula 3.0 10/23/16 16:40 21 Intake and Output 10/26/16 10/26/16 10/27/16 15:00 23:00 07:00 Intake Total 750 ml 240 ml Balance 750 ml 240 ml Exam Constitutional: alert, oriented Psych: nl mood/affect Head: normocephalic Respiratory: wheezing Cardiovascular: regular rate and rhythm Gastrointestinal: non-tender, soft Musculoskeletal: No nl gait and stance Extremities: normal pulses Neurological: WARP STARTER II-XII intact, nl mental status, nl speech Results Result Diagram: 10/27/16 0643 10/27/16 0643 Results 24 hrs Laboratory Tests Test 10/26/16 17:28 10/26/16 20:37 10/27/16 01:41 10/27/16 06:43 Bedside Glucose 189 183 167 White Blood Count 9.9 Red Blood Count 4.91 Hemoglobin 13.6 Hematocrit 42.0 Mean Corpuscular Volume 85.5 Mean Corpuscular Hemoglobin 27.7 L Mean Corpuscular Hemoglobin Concent 32.4 Red Cell Distribution Width 13.9 Platelet Count 303 Mean Platelet Volume 9.0 Neutrophils % 74.7 Lymphocytes % 17.9 Monocytes % 6.4 Eosinophils % 0.0 Basophils % 0.1 Nucleated Red Blood Cells % 0.0 Neutrophils # (Manual) 7.4 Lymphocytes # 1.8 Monocytes # 0.6 Eosinophils # 0.0 Basophils # 0.0 Nucleated Red Blood Cells # 0.0 Sodium Level 137 Potassium Level 3.9 Chloride Level 89 L Carbon Dioxide Level 35 H Anion Gap 17 H Blood Urea Nitrogen 21 H Creatinine 0.51 Glucose Level 207 Calcium Level 8.6 Test 10/27/16 08:37 10/27/16 12:12 Bedside Glucose 246 H 268 H Medications Medications Current Medications Acetaminophen (Tylenol Tab) 650 mg Q6H PRN PO PAIN LEVEL 1-3 OR FEVER; Start at 11:00 Acetaminophen/ Hydrocodone Bitart ([place] (5/325)) 1 tab Q6H PRN PO PAIN LEVEL 4 -6 Last administered on 10/25/16 03:00; Admin Dose 1 TAB; Start 10/23/16 at 11: 00 Docusate Sodium (Colace) 100 mg Q12H PRN PO CONSTIPATION; Start 10/23/16 at 11: 00 Magnesium Hydroxide (Milk Of Mag) 30 ml DAILY PRN PO CONSTIPATION; Start at 11:00 Bisacodyl (Dulcolax) 5 mg DAILY PRN PO CONSTIPATION; Start 10/23/16 at 11:00 Bisacodyl (Dulcolax Supp) 10 mg DAILY PRN [place] CONSTIPATION; Start 10/23/16 at 11 :00 Enoxaparin Sodium (Lovenox) 40 mg DAILY SC Last administered on 10/27/16 08:45 ; Admin Dose 40 MG; Start 10/24/16 at 09:00 Aspirin (Halfprin) 81 mg DAILY PO Last administered on 10/27/16 08:40; Admin Dose 81 MG; Start 10/24/16 at 09:00 Losartan Potassium (Cozaar) 50 mg DAILY PO Last administered on 10/27/16 08:39 ; Admin Dose 50 MG; Start 10/24/16 at 09:00 Montelukast Sodium (Singulair) 10 mg QHS PO Last administered on 10/26/16 20: 39; Admin Dose 10 MG; Start 10/23/16 at 21:00 Salmeterol Xinafoate/ Fluticasone (Advair 500/50 Diskus) 1 inh BID INH Last administered on 10/27/16 08:40; Admin Dose 1 INH; Start 10/23/16 at 21:00 Tiotropium [place] (Spiriva) 1 inh DAILY INH Last administered on 10/27/16 08: 40; Admin Dose 1 INH; Start 10/24/16 at 09:00 Atorvastatin Calcium (Lipitor) 10 mg DAILY@21 PO Last administered on 20:39; Admin Dose 10 MG; Start 10/23/16 at 21:00 Diagnostic Test (Pha) (Accu-Chek) 1 ea 02 XX Last administered on 10/27/16 01: 42; Admin Dose 1 EA; Start 10/24/16 at 02:00 Diagnostic Test (Pha) (Accu-Chek) 1 ea 02 XX Last administered on 10/27/16 01: 42; Admin Dose 1 EA; Start 10/24/16 at 02:00 Miscellaneous Information 1 ea NOTE XX ; Start 10/23/16 at 18:30 Glucose (Glutose) 15 gm Q15M PRN PO DECREASED GLUCOSE; Start 10/23/16 at 18:30 Glucose (Glutose) 22.5 gm Q15M PRN PO DECREASED GLUCOSE; Start 10/23/16 at 18: 30 Dextrose (D50w Syringe) 25 ml Q15M PRN IV DECREASED GLUCOSE; Start 10/23/16 at 18:30 Dextrose (D50w Syringe) 50 ml Q15M PRN IV DECREASED GLUCOSE; Start 10/23/16 at 18:30 Glucagon (Glucagen) 1 mg Q15M PRN IM DECREASED GLUCOSE; Start 10/23/16 at 18:30 Glucose (Glutose) 15 gm Q15M PRN BUCCAL DECREASED GLUCOSE; Start 10/23/16 at 18 :30 Methylprednisolone Sodium Succinate (Solu-Medrol) 40 mg Q6 IV Last administered on 10/27/16 12:13; Admin Dose 40 MG; Start 10/24/16 at 14:00 Hydralazine HCl 10 mg 10 mg Q6H PRN IV ELEVATED BLOOD PRESSURE Last administered on 10/26/16 11:11; Admin Dose 10 MG; Start 10/24/16 at 14:00 Levofloxacin/ Dextrose (Levaquin 250 Mg/ D5W 50 ml (Pmx)) 50 ml @ 100 mls/hr Q24H IVPB Last administered on 10/27/16 15:05; Admin Dose 100 MLS/HR; Start at 14:00 Insulin Glargine (Lantus) 10 unit DAILY@08 SC Last administered on 10/27/16 08 :44; Admin Dose 10 UNIT; Start 10/25/16 at 08:00 Amlodipine Besylate (Norvasc) 5 mg BID PO Last administered on 10/27/16 08:39 ; Admin Dose 5 MG; Start 10/26/16 at 17:00 AN ORDONEZ Oct 27, 2016 15:37
[2016-10-27] MEDS: ATORVASTATIN 10 MG TAB PO SCH (20:57)
[2016-10-27] MEDS: MONTELUKAST 10 MG TAB PO SCH (20:57)
[2016-10-28] VITALS (11 sets, daily range): BP systolic 115–136; BP diastolic 56–84; PULSE 86–102; RESP 16–22
[2016-10-28] MEDS: LEVALBUTEROL (NEB) 0.63 MG/3 ML AMP HHN SCH ×6 (01:40→20:26)
[2016-10-28] MEDS: ACCU-CHEK XX SCH ×2 (02:00)
[2016-10-28] MEDS: METHYLPREDNISOLONE 40 MG INJ IV SCH ×3 (06:30→17:36)
[2016-10-28 07:40] LABS: BASOPHILS % 0.3 % (0.0-2.0); HEMATOCRIT 40.5 % (37.0-47.0); HEMOGLOBIN 13.3 g/dl (12.0-16.0); LYMPHOCYTES # 1.7 10^3/ul (0.8-2.9); LYMPHOCYTES % 16.8 % (15.0-51.0); MEAN CORPUSCULAR HEMOGLOBIN 28.2 pg (29.0-33.0); MEAN CORPUSCULAR HGB CONC 32.8 g/dl (32.0-37.0); MEAN CORPUSCULAR VOLUME 85.8 fl (82.0-101.0); MEAN PLATELET VOLUME 8.9 fl (7.4-10.4); MONOCYTE # 0.7 10^3/ul (0.3-0.9); MONOCYTES % 7.1 % (0.0-11.0); PLATELET COUNT 287 10^3/UL (140-415); RED BLOOD COUNT 4.72 10^6/ul (4.20-5.40); RED CELL DISTRIBUTION WIDTH 13.8 % (11.5-14.5); WHITE BLOOD COUNT 10.2 10^3/ul (4.8-10.8)
[2016-10-28 07:59] LABS: CALCIUM 8.4 mg/dl (8.4-10.2); CREATININE 0.61 mg/dl (0.44-1.00); POTASSIUM 3.8 mmol/L (3.5-5.1)
[2016-10-28] MEDS: INSULIN ASPART [NOVOLOG] 3 ML PEN SC SCH ×4 (08:22→20:44)
[2016-10-28] MEDS: SALMETEROL/FLUTICASONE 500/50 INHA INH SCH ×2 (08:26→20:41)
[2016-10-28] MEDS: INSULIN GLARGINE [LANtus] 3 ML PEN SC SCH (08:30)
[2016-10-28] MEDS: LOSARTAN 50 MG TAB PO SCH (08:32)
[2016-10-28] MEDS: AMLODIPINE 5 MG TAB PO SCH ×2 (08:32→20:40)
[2016-10-28] MEDS: ASPIRIN (EC) 81 MG TAB PO SCH (08:32)
[2016-10-28] MEDS: ENOXAPARIN 40 MG/0.4 ML SYG SC SCH (08:38)
[2016-10-28] MEDS: TIOTROPIUM 18 MCG CAPSULE INHA DEV INH SCH (08:39)
[2016-10-28] MEDS: LEVOFLOXACIN 250MG/D5W (PMX) 50 ML IVPB SCH (15:16)
--- NOTE | 2016-10-28 16:09 | PN ---
Date/Time of Note Date/Time of Note DATE: 10/28/16 TIME: 16:06 Assessment/Plan VTE Prophylaxis VTE Prophylaxis Intervention: LMWH Lines/Catheters IV Catheter Type (from Nrs): Saline Lock Assessment/Plan Assessment/Plan 1. COPD exacerbation. Continue IV steroids. Continue on DuoNeb/levaquin/ singulair 2. Essential hypertension. controlled 3. Diabetes. Continue insulin regimen. Stable 4. DVT prophylaxis: lovenox Subjective 24 Hr Interval Summary Free Text/Dictation still shortness of breath Exam/Review of Systems Vital Signs Vitals Vital Signs Date Time Temp Pulse Resp B/P Pulse Ox O2 Delivery O2 Flow Rate FiO2 10/28/16 15:32 98.1 101 16 128/56 94 10/28/16 13:30 3.0 10/28/16 13:29 Nasal Cannula Intake and Output 10/27/16 10/27/16 10/28/16 15:00 23:00 07:00 Intake Total 820 ml 240 ml Balance 820 ml 240 ml Exam Constitutional: alert, oriented, well developed Psych: nl mood/affect, no complaints Head: atraumatic, normocephalic Eyes: EOMI, PERRL, nl conjunctiva, nl lids ENMT: nl external ears & nose, nl lips & teeth, nl nasal mucosa & septum Neck: non-tender, supple Respiratory: crackles/rales Cardiovascular: nl pulses, regular rate and rhythm, No S3, No S4, No bruits, No diastolic murmur, No edema, No gallop, No irregular rhythm, No jugular venous distention (JVD), No murmurs/extra sounds, No other, No rub, No systolic murmur Gastrointestinal: nl liver, spleen, non-tender, soft, No ascites, No bowel sounds, No distended, No firm, No hepatomegaly, No mass , No other, No rebound or guarding, No splenomegaly, No surgical scars, No tender Musculoskeletal: nl extremities to inspection Extremities: normal pulses, No calf tenderness, No clubbing, No cyanosis, No edema, No other, No palpable cord, No pitting pedal edema, No tenderness Neurological: SUPERVISOR COSTUMING II-XII intact, nl mental status, nl speech, nl strength Results Result Diagram: 10/28/16 0658 10/28/16 0658 Results 24 hrs Laboratory Tests Test 10/27/16 17:01 10/27/16 20:55 10/28/16 06:58 10/28/16 08:17 Bedside Glucose 181 178 212 White Blood Count 10.2 Red Blood Count 4.72 Hemoglobin 13.3 Hematocrit 40.5 Mean Corpuscular Volume 85.8 Mean Corpuscular Hemoglobin 28.2 L Mean Corpuscular Hemoglobin Concent 32.8 Red Cell Distribution Width 13.8 Platelet Count 287 Mean Platelet Volume 8.9 Neutrophils % 74.0 Lymphocytes % 16.8 Monocytes % 7.1 Eosinophils % 0.0 Basophils % 0.3 Nucleated Red Blood Cells % 0.0 Neutrophils # (Manual) 7.5 Lymphocytes # 1.7 Monocytes # 0.7 Eosinophils # 0.0 Basophils # 0.0 Nucleated Red Blood Cells # 0.0 Sodium Level 133 L Potassium Level 3.8 Chloride Level 91 L Carbon Dioxide Level 36 H Anion Gap 10 # Blood Urea Nitrogen 27 H Creatinine 0.61 Glucose Level 232 H Calcium Level 8.4 Test 10/28/16 11:58 Bedside Glucose 258 H Medications Medications Current Medications Acetaminophen (Tylenol Tab) 650 mg Q6H PRN PO PAIN LEVEL 1-3 OR FEVER; Start at 11:00 Acetaminophen/ Hydrocodone Bitart ([place] (5/325)) 1 tab Q6H PRN PO PAIN LEVEL 4 -6 Last administered on 10/25/16 03:00; Admin Dose 1 TAB; Start 10/23/16 at 11: 00 Docusate Sodium (Colace) 100 mg Q12H PRN PO CONSTIPATION; Start 10/23/16 at 11: 00 Magnesium Hydroxide (Milk Of Mag) 30 ml DAILY PRN PO CONSTIPATION; Start at 11:00 Bisacodyl (Dulcolax) 5 mg DAILY PRN PO CONSTIPATION; Start 10/23/16 at 11:00 Bisacodyl (Dulcolax Supp) 10 mg DAILY PRN [place] CONSTIPATION; Start 10/23/16 at 11 :00 Enoxaparin Sodium (Lovenox) 40 mg DAILY SC Last administered on 10/28/16 08:38 ; Admin Dose 40 MG; Start 10/24/16 at 09:00 Aspirin (Halfprin) 81 mg DAILY PO Last administered on 10/28/16 08:32; Admin Dose 81 MG; Start 10/24/16 at 09:00 Losartan Potassium (Cozaar) 50 mg DAILY PO Last administered on 10/28/16 08:32 ; Admin Dose 50 MG; Start 10/24/16 at 09:00 Montelukast Sodium (Singulair) 10 mg QHS PO Last administered on 10/27/16 20: 57; Admin Dose 10 MG; Start 10/23/16 at 21:00 Salmeterol Xinafoate/ Fluticasone (Advair 500/50 Diskus) 1 inh BID INH Last administered on 10/28/16 08:26; Admin Dose 1 INH; Start 10/23/16 at 21:00 Tiotropium [place] (Spiriva) 1 inh DAILY INH Last administered on 10/28/16 08: 39; Admin Dose 1 INH; Start 10/24/16 at 09:00 Atorvastatin Calcium (Lipitor) 10 mg DAILY@21 PO Last administered on 20:57; Admin Dose 10 MG; Start 10/23/16 at 21:00 Diagnostic Test (Pha) (Accu-Chek) 1 ea 02 XX Last administered on 10/27/16 01: 42; Admin Dose 1 EA; Start 10/24/16 at 02:00 Diagnostic Test (Pha) (Accu-Chek) 1 ea 02 XX Last administered on 10/27/16 01: 42; Admin Dose 1 EA; Start 10/24/16 at 02:00 Miscellaneous Information 1 ea NOTE XX ; Start 10/23/16 at 18:30 Glucose (Glutose) 15 gm Q15M PRN PO DECREASED GLUCOSE; Start 10/23/16 at 18:30 Glucose (Glutose) 22.5 gm Q15M PRN PO DECREASED GLUCOSE; Start 10/23/16 at 18: 30 Dextrose (D50w Syringe) 25 ml Q15M PRN IV DECREASED GLUCOSE; Start 10/23/16 at 18:30 Dextrose (D50w Syringe) 50 ml Q15M PRN IV DECREASED GLUCOSE; Start 10/23/16 at 18:30 Glucagon (Glucagen) 1 mg Q15M PRN IM DECREASED GLUCOSE; Start 10/23/16 at 18:30 Glucose (Glutose) 15 gm Q15M PRN BUCCAL DECREASED GLUCOSE; Start 10/23/16 at 18 :30 Methylprednisolone Sodium Succinate (Solu-Medrol) 40 mg Q6 IV Last administered on 10/28/16 11:39; Admin Dose 40 MG; Start 10/24/16 at 14:00 Hydralazine HCl 10 mg 10 mg Q6H PRN IV ELEVATED BLOOD PRESSURE Last administered on 10/26/16 11:11; Admin Dose 10 MG; Start 10/24/16 at 14:00 Levofloxacin/ Dextrose (Levaquin 250 Mg/ D5W 50 ml (Pmx)) 50 ml @ 100 mls/hr Q24H IVPB Last administered on 10/28/16 15:16; Admin Dose 100 MLS/HR; Start at 14:00 Insulin Glargine (Lantus) 10 unit DAILY@08 SC Last administered on 10/28/16 08: 30; Admin Dose 10 UNIT; Start 10/25/16 at 08:00 Amlodipine Besylate (Norvasc) 5 mg BID PO Last administered on 10/28/16 08:32; Admin Dose 5 MG; Start 10/26/16 at 17:00 FATIMAH SOTO MD Oct 28, 2016 16:09
[2016-10-28] MEDS: ATORVASTATIN 10 MG TAB PO SCH (20:39)
[2016-10-28] MEDS: MONTELUKAST 10 MG TAB PO SCH (20:39)
[2016-10-29] VITALS (13 sets, daily range): BP systolic 114–135; BP diastolic 56–77; PULSE 87–176; RESP 16–18
[2016-10-29] MEDS: LEVALBUTEROL (NEB) 0.63 MG/3 ML AMP HHN SCH ×6 (01:18→20:23)
[2016-10-29] MEDS: ACCU-CHEK XX SCH ×2 (02:00)
[2016-10-29] MEDS: METHYLPREDNISOLONE 40 MG INJ IV SCH ×4 (03:10→18:24)
[2016-10-29 06:55] LABS: BASOPHILS % 0.2 % (0.0-2.0); HEMATOCRIT 41.3 % (37.0-47.0); HEMOGLOBIN 13.5 g/dl (12.0-16.0); LYMPHOCYTES # 1.4 10^3/ul (0.8-2.9); LYMPHOCYTES % 12.5 % (15.0-51.0); MEAN CORPUSCULAR HEMOGLOBIN 27.7 pg (29.0-33.0); MEAN CORPUSCULAR HGB CONC 32.7 g/dl (32.0-37.0); MEAN CORPUSCULAR VOLUME 84.6 fl (82.0-101.0); MEAN PLATELET VOLUME 8.9 fl (7.4-10.4); MONOCYTE # 0.9 10^3/ul (0.3-0.9); MONOCYTES % 7.7 % (0.0-11.0); NEUTROPHILS % 76.5 % (39.0-77.0); PLATELET COUNT 310 10^3/UL (140-415); RED BLOOD COUNT 4.88 10^6/ul (4.20-5.40); RED CELL DISTRIBUTION WIDTH 14.1 % (11.5-14.5)
[2016-10-29 07:23] LABS: CALCIUM 8.3 mg/dl (8.4-10.2); CREATININE 0.78 mg/dl (0.44-1.00)
[2016-10-29] MEDS: ASPIRIN (EC) 81 MG TAB PO SCH (08:38)
[2016-10-29] MEDS: LOSARTAN 50 MG TAB PO SCH (08:40)
[2016-10-29] MEDS: SALMETEROL/FLUTICASONE 500/50 INHA INH SCH ×2 (08:40→20:18)
[2016-10-29] MEDS: AMLODIPINE 5 MG TAB PO SCH ×2 (08:41→20:17)
[2016-10-29] MEDS: ENOXAPARIN 40 MG/0.4 ML SYG SC SCH (08:47)
[2016-10-29] MEDS: INSULIN GLARGINE [LANtus] 3 ML PEN SC SCH (08:48)
[2016-10-29] MEDS: INSULIN ASPART [NOVOLOG] 3 ML PEN SC SCH ×5 (08:48→20:44)
[2016-10-29] MEDS: LEVOFLOXACIN 250MG/D5W (PMX) 50 ML IVPB SCH (14:34)
--- NOTE | 2016-10-29 14:42 | PN ---
Date/Time of Note Date/Time of Note DATE: 10/29/16 TIME: 14:37 Assessment/Plan VTE Prophylaxis VTE Prophylaxis Intervention: SCD's Lines/Catheters [facility] Saline Lock Assessment/Plan Chief Complaint/Hosp Course Assessment and plan 1. Asthma with exacerbation. Continue IV steroids. Continue on DuoNeb. On Advair 500/50. Await for clinical improvement of respiratory status. will get actuarial science professor. of note patient requiring more o2. Continue with physical therapy and Occupational Therapy . 2. Essential hypertension. Appears stable at present. Continue antihypertensives and adjust needed. Stable 3. Diabetes. Continue insulin regimen. Stable at present. Disposition plan: will get actuarial science professor consultation. continue inhouse monitoring Discussed plan of care with Dr. Le Problems: Subjective 24 Hr Interval Summary Free Text/Dictation With some shortness of breath requiring higher amounts of oxygen. Exam/Review of Systems Vital Signs Vitals Vital Signs Date Time Temp Pulse Resp B/P Pulse Ox O2 Delivery O2 Flow Rate FiO2 10/29/16 13:00 109 22 90 Nasal Cannula 5.0 10/29/16 11:22 98.2 129/77 Intake and Output 10/28/16 10/28/16 10/29/16 15:00 23:00 07:00 Intake Total 810 ml 250 ml Balance 810 ml 250 ml Exam Constitutional: alert, oriented Psych: nl mood/affect Head: normocephalic Neck: supple Respiratory: wheezing Cardiovascular: other (tachycardic) Gastrointestinal: non-tender, soft Musculoskeletal: No nl gait and stance Neurological: SENIOR UI DESIGNER II-XII intact, nl mental status Results Result Diagram: 10/29/16 0547 10/29/16 0547 Results 24 hrs Laboratory Tests Test 10/28/16 17:32 10/28/16 20:37 10/29/16 03:06 10/29/16 05:47 Bedside Glucose 193 218 187 White Blood Count 11.0 H Red Blood Count 4.88 Hemoglobin 13.5 Hematocrit 41.3 Mean Corpuscular Volume 84.6 Mean Corpuscular Hemoglobin 27.7 L Mean Corpuscular Hemoglobin Concent 32.7 Red Cell Distribution Width 14.1 Platelet Count 310 Mean Platelet Volume 8.9 Neutrophils % 76.5 Lymphocytes % 12.5 L Monocytes % 7.7 Eosinophils % 0.0 Basophils % 0.2 Nucleated Red Blood Cells % 0.0 Neutrophils # (Manual) 8.4 H Lymphocytes # 1.4 Monocytes # 0.9 Eosinophils # 0.0 Basophils # 0.0 Nucleated Red Blood Cells # 0.0 Sodium Level 134 L Potassium Level 4.0 Chloride Level 92 L Carbon Dioxide Level 34 H Anion Gap 12 Blood Urea Nitrogen 36 H Creatinine 0.78 Glucose Level 216 Calcium Level 8.3 L Test 10/29/16 08:18 10/29/16 12:19 Bedside Glucose 213 330 H Medications Medications Current Medications Acetaminophen (Tylenol Tab) 650 mg Q6H PRN PO PAIN LEVEL 1-3 OR FEVER; Start at 11:00 Acetaminophen/ Hydrocodone Bitart ([place] (5/325)) 1 tab Q6H PRN PO PAIN LEVEL 4 -6 Last administered on 10/25/16 03:00; Admin Dose 1 TAB; Start 10/23/16 at 11: 00 Docusate Sodium (Colace) 100 mg Q12H PRN PO CONSTIPATION; Start 10/23/16 at 11: 00 Magnesium Hydroxide (Milk Of Mag) 30 ml DAILY PRN PO CONSTIPATION; Start at 11:00 Bisacodyl (Dulcolax) 5 mg DAILY PRN PO CONSTIPATION; Start 10/23/16 at 11:00 Bisacodyl (Dulcolax Supp) 10 mg DAILY PRN [place] CONSTIPATION; Start 10/23/16 at 11 :00 Enoxaparin Sodium (Lovenox) 40 mg DAILY SC Last administered on 10/29/16 08:47 ; Admin Dose 40 MG; Start 10/24/16 at 09:00 Aspirin (Halfprin) 81 mg DAILY PO Last administered on 10/29/16 08:38; Admin Dose 81 MG; Start 10/24/16 at 09:00 Losartan Potassium (Cozaar) 50 mg DAILY PO Last administered on 10/29/16 08:40 ; Admin Dose 50 MG; Start 10/24/16 at 09:00 Montelukast Sodium (Singulair) 10 mg QHS PO Last administered on 10/28/16 20:39 ; Admin Dose 10 MG; Start 10/23/16 at 21:00 Salmeterol Xinafoate/ Fluticasone (Advair 500/50 Diskus) 1 inh BID INH Last administered on 10/29/16 08:40; Admin Dose 1 INH; Start 10/23/16 at 21:00 Tiotropium [place] (Spiriva) 1 inh DAILY INH Last administered on 10/28/16 08: 39; Admin Dose 1 INH; Start 10/24/16 at 09:00 Atorvastatin Calcium (Lipitor) 10 mg DAILY@21 PO Last administered on 10/28/16 20:39; Admin Dose 10 MG; Start 10/23/16 at 21:00 Diagnostic Test (Pha) (Accu-Chek) 1 ea 02 XX Last administered on 10/27/16 01: 42; Admin Dose 1 EA; Start 10/24/16 at 02:00 Diagnostic Test (Pha) (Accu-Chek) 1 ea 02 XX Last administered on 10/27/16 01: 42; Admin Dose 1 EA; Start 10/24/16 at 02:00 Miscellaneous Information 1 ea NOTE XX ; Start 10/23/16 at 18:30 Glucose (Glutose) 15 gm Q15M PRN PO DECREASED GLUCOSE; Start 10/23/16 at 18:30 Glucose (Glutose) 22.5 gm Q15M PRN PO DECREASED GLUCOSE; Start 10/23/16 at 18: 30 Dextrose (D50w Syringe) 25 ml Q15M PRN IV DECREASED GLUCOSE; Start 10/23/16 at 18:30 Dextrose (D50w Syringe) 50 ml Q15M PRN IV DECREASED GLUCOSE; Start 10/23/16 at 18:30 Glucagon (Glucagen) 1 mg Q15M PRN IM DECREASED GLUCOSE; Start 10/23/16 at 18:30 Glucose (Glutose) 15 gm Q15M PRN BUCCAL DECREASED GLUCOSE; Start 10/23/16 at 18 :30 Methylprednisolone Sodium Succinate (Solu-Medrol) 40 mg Q6 IV Last administered on 10/29/16 12:21; Admin Dose 40 MG; Start 10/24/16 at 14:00 Hydralazine HCl 10 mg 10 mg Q6H PRN IV ELEVATED BLOOD PRESSURE Last administered on 10/26/16 11:11; Admin Dose 10 MG; Start 10/24/16 at 14:00 Levofloxacin/ Dextrose (Levaquin 250 Mg/ D5W 50 ml (Pmx)) 50 ml @ 100 mls/hr Q24H IVPB Last administered on 10/29/16 14:34; Admin Dose 100 MLS/HR; Start at 14:00 Insulin Glargine (Lantus) 10 unit DAILY@08 SC Last administered on 10/29/16 08: 48; Admin Dose 10 UNIT; Start 10/25/16 at 08:00 Amlodipine Besylate (Norvasc) 5 mg BID PO Last administered on 10/29/16 08:41; Admin Dose 5 MG; Start 10/26/16 at 17:00 AN ORDONEZ Oct 29, 2016 14:42
[2016-10-29] MEDS: TIOTROPIUM 18 MCG CAPSULE INHA DEV INH SCH (17:00)
[2016-10-29] MEDS: MONTELUKAST 10 MG TAB PO SCH (20:17)
[2016-10-29] MEDS: ATORVASTATIN 10 MG TAB PO SCH (20:17)
[2016-10-29] MEDS ORDERED: INSULIN ASPART [NOVOLOG] 3 ML PEN SC ONE (21:00)
[2016-10-30] VITALS (13 sets, daily range): BP systolic 90–133; BP diastolic 53–67; PULSE 89–121; RESP 16–20
[2016-10-30] MEDS: METHYLPREDNISOLONE 40 MG INJ IV SCH ×4 (00:15→20:46)
[2016-10-30] MEDS: LEVALBUTEROL (NEB) 0.63 MG/3 ML AMP HHN SCH ×6 (01:52→19:53)
[2016-10-30] MEDS: ACCU-CHEK XX SCH ×2 (03:00)
[2016-10-30 06:56] LABS: BASOPHIL # 0.1 10^3/ul (0.0-0.1); BASOPHILS % 0.5 % (0.0-2.0); HEMATOCRIT 42.9 % (37.0-47.0); HEMOGLOBIN 14.2 g/dl (12.0-16.0); LYMPHOCYTES # 1.1 10^3/ul (0.8-2.9); LYMPHOCYTES % 8.1 % (15.0-51.0); MEAN CORPUSCULAR HGB CONC 33.1 g/dl (32.0-37.0); MEAN CORPUSCULAR VOLUME 84.4 fl (82.0-101.0); MEAN PLATELET VOLUME 8.8 fl (7.4-10.4); MONOCYTE # 0.8 10^3/ul (0.3-0.9); MONOCYTES % 5.7 % (0.0-11.0); NEUTROPHILS % 81.5 % (39.0-77.0); PLATELET COUNT 337 10^3/UL (140-415); RED BLOOD COUNT 5.08 10^6/ul (4.20-5.40); RED CELL DISTRIBUTION WIDTH 13.8 % (11.5-14.5); WHITE BLOOD COUNT 13.4 10^3/ul (4.8-10.8)
[2016-10-30 07:32] LABS: CALCIUM 8.3 mg/dl (8.4-10.2); CREATININE 0.77 mg/dl (0.44-1.00); POTASSIUM 3.8 mmol/L (3.5-5.1)
[2016-10-30] MEDS: ASPIRIN (EC) 81 MG TAB PO SCH (08:23)
[2016-10-30] MEDS: AMLODIPINE 5 MG TAB PO SCH ×2 (08:24→20:45)
[2016-10-30] MEDS: LOSARTAN 50 MG TAB PO SCH (08:24)
[2016-10-30] MEDS: TIOTROPIUM 18 MCG CAPSULE INHA DEV INH SCH (08:24)
[2016-10-30] MEDS: SALMETEROL/FLUTICASONE 500/50 INHA INH SCH ×2 (08:25→20:46)
[2016-10-30] MEDS: ENOXAPARIN 40 MG/0.4 ML SYG SC SCH (08:27)
[2016-10-30] MEDS: INSULIN GLARGINE [LANtus] 3 ML PEN SC SCH (08:28)
[2016-10-30] MEDS: INSULIN ASPART [NOVOLOG] 3 ML PEN SC SCH ×5 (08:28→21:00)
[2016-10-30] MEDS: BUDESONIDE (NEB) 0.5MG/2ML AMP HHN SCH ×2 (14:07→19:59)
--- NOTE | 2016-10-30 14:20 | PN ---
Date/Time of Note Date/Time of Note DATE: 10/30/16 TIME: 14:17 Assessment/Plan VTE Prophylaxis VTE Prophylaxis Intervention: SCD's Lines/Catheters IV C[facility]ter Type [facility]from [facility] Saline Lock Assessment/Plan Chief Complaint/Hosp Course Assessment and plan 1. Asthma with exacerbation. 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 Continue on bronchodilators and steroid treatment. . Await for clinical improvement . 2. Essential hypertension. Appears stable at present. Continue antihypertensives and adjust needed. Stable 3. Diabetes. Continue insulin regimen. Stable at present. Disposition plan: Still with shortness of breath. Continue broncho-dilators. Echo cardiogram pending. Await for clinical improvement of respiratory status Discussed plan of care with Dr. Le Problems: Subjective 24 Hr Interval Summary Free Text/Dictation Reports little worse breathing today. Exam/Review of Systems Vital Signs Vitals Vital Signs Date Time Temp Pulse Resp B/P Pulse Ox O2 Delivery O2 Flow Rate FiO2 10/30/16 14:14 118 26 90 Nasal Cannula 5.0 10/30/16 11:14 98.6 124/64 Intake and Output 10/29/16 10/29/16 10/30/16 15:00 23:00 07:00 Intake Total 790 ml Balance 790 ml Exam Constitutional: alert, oriented Psych: nl mood/affect Respiratory: clear to auscultation, other (Congested. Less wheezing.) Cardiovascular: regular rate and rhythm Gastrointestinal: non-tender, soft Musculoskeletal: No nl gait and stance Neurological: TRACK LAYER II-XII intact, nl mental status, nl speech Results Result Diagram: 10/30/16 0608 10/30/16 0608 Results 24 hrs Laboratory Tests Test 10/29/16 17:29 10/29/16 20:15 10/30/16 03:57 10/30/16 06:08 Bedside Glucose 230 H 314 H 199 White Blood Count 13.4 #H Red Blood Count 5.08 Hemoglobin 14.2 Hematocrit 42.9 Mean Corpuscular Volume 84.4 Mean Corpuscular Hemoglobin 28.0 L Mean Corpuscular Hemoglobin Concent 33.1 Red Cell Distribution Width 13.8 Platelet Count 337 Mean Platelet Volume 8.8 Neutrophils % 81.5 H Lymphocytes % 8.1 L Monocytes % 5.7 Eosinophils % 0.0 Basophils % 0.5 Nucleated Red Blood Cells % 0.0 Neutrophils # (Manual) 10.9 H Lymphocytes # 1.1 Monocytes # 0.8 Eosinophils # 0.0 Basophils # 0.1 Nucleated Red Blood Cells # 0.0 Sodium Level 134 L Potassium Level 3.8 Chloride Level 94 L Carbon Dioxide Level 33 H Anion Gap 11 Blood Urea Nitrogen 44 H Creatinine 0.77 Glucose Level 248 H Calcium Level 8.3 L Test 10/30/16 08:21 10/30/16 12:05 Bedside Glucose 247 H 341 H Medications Medications Current Medications Acetaminophen (Tylenol Tab) 650 mg Q6H PRN PO PAIN LEVEL 1-3 OR FEVER; Start at 11:00 Acetaminophen/ Hydrocodone Bitart ([place] (5/325)) 1 tab Q6H PRN PO PAIN LEVEL 4 -6 Last administered on 10/25/16 03:00; Admin Dose 1 TAB; Start 10/23/16 at 11: 00 Docusate Sodium (Colace) 100 mg Q12H PRN PO CONSTIPATION; Start 10/23/16 at 11: 00 Magnesium Hydroxide (Milk Of Mag) 30 ml DAILY PRN PO CONSTIPATION; Start at 11:00 Bisacodyl (Dulcolax) 5 mg DAILY PRN PO CONSTIPATION; Start 10/23/16 at 11:00 Bisacodyl (Dulcolax Supp) 10 mg DAILY PRN [place] CONSTIPATION; Start 10/23/16 at 11 :00 Enoxaparin Sodium (Lovenox) 40 mg DAILY SC Last administered on 10/30/16 08:27 ; Admin Dose 40 MG; Start 10/24/16 at 09:00 Aspirin (Halfprin) 81 mg DAILY PO Last administered on 10/30/16 08:23; Admin Dose 81 MG; Start 10/24/16 at 09:00 Losartan Potassium (Cozaar) 50 mg DAILY PO Last administered on 10/30/16 08:24 ; Admin Dose 50 MG; Start 10/24/16 at 09:00 Montelukast Sodium (Singulair) 10 mg QHS PO Last administered on 10/29/16 20:17 ; Admin Dose 10 MG; Start 10/23/16 at 21:00 Salmeterol Xinafoate/ Fluticasone (Advair 500/50 Diskus) 1 inh BID INH Last administered on 10/30/16 08:25; Admin Dose 1 INH; Start 10/23/16 at 21:00 Tiotropium [place] (Spiriva) 1 inh DAILY INH Last administered on 10/30/16 08: 24; Admin Dose 1 INH; Start 10/24/16 at 09:00 Atorvastatin Calcium (Lipitor) 10 mg DAILY@21 PO Last administered on 10/29/16 20:17; Admin Dose 10 MG; Start 10/23/16 at 21:00 Diagnostic Test (Pha) (Accu-Chek) 1 ea 02 XX Last administered on 10/27/16 01: 42; Admin Dose 1 EA; Start 10/24/16 at 02:00 Miscellaneous Information 1 ea NOTE XX ; Start 10/23/16 at 18:30 Glucose (Glutose) 15 gm Q15M PRN PO DECREASED GLUCOSE; Start 10/23/16 at 18:30 Glucose (Glutose) 22.5 gm Q15M PRN PO DECREASED GLUCOSE; Start 10/23/16 at 18: 30 Dextrose (D50w Syringe) 25 ml Q15M PRN IV DECREASED GLUCOSE; Start 10/23/16 at 18:30 Dextrose (D50w Syringe) 50 ml Q15M PRN IV DECREASED GLUCOSE; Start 10/23/16 at 18:30 Glucagon (Glucagen) 1 mg Q15M PRN IM DECREASED GLUCOSE; Start 10/23/16 at 18:30 Glucose (Glutose) 15 gm Q15M PRN BUCCAL DECREASED GLUCOSE; Start 10/23/16 at 18 :30 Hydralazine HCl 10 mg 10 mg Q6H PRN IV ELEVATED BLOOD PRESSURE Last administered on 10/26/16 11:11; Admin Dose 10 MG; Start 10/24/16 at 14:00 Levofloxacin/ Dextrose (Levaquin 250 Mg/ D5W 50 ml (Pmx)) 50 ml @ 100 mls/hr Q24H IVPB Last administered on 10/29/16 14:34; Admin Dose 100 MLS/HR; Start at 14:00 Amlodipine Besylate (Norvasc) 5 mg BID PO Last administered on 10/30/16 08:24; Admin Dose 5 MG; Start 10/26/16 at 17:00 Insulin Glargine (Lantus) 18 unit DAILY@08 SC ; Start 10/31/16 at 08:00 Diagnostic Test (Pha) (Accu-Chek) 1 02 XX ; Start 10/31/16 at 02:00 Methylprednisolone Sodium Succinate (Solu-Medrol) 40 mg Q12 IV ; Start 10/30/16 at 21:00 Furosemide (Lasix) 40 mg DAILY IV ; Start 10/30/16 at 13:30 AN ORDONEZ Oct 30, 2016 14:19
[2016-10-30] MEDS: FUROSEMIDE 40 MG INJ IV SCH (14:49)
[2016-10-30] MEDS: LEVOFLOXACIN 250MG/D5W (PMX) 50 ML IVPB SCH (14:50)
--- NOTE | 2016-10-30 17:52 | CONS ---
DATE OF ADMISSION: 10/23/2016 DATE OF CONSULTATION: 10/30/2016 REASON FOR CONSULTATION: Cough and wheezing. Thank you, Dr. Le, for this consultation. HISTORY OF PRESENT ILLNESS: This is an 81-year-old lady recently admitted on 10/23/2016 with cough, wheezing, shortness of breath, apparently of 1 day onset. Denied any prior history of sick contacts. No recent travel history. She does apparently have a history of asthma. She is a lifelong nonsmoker. PAST MEDICAL HISTORY: Includes hypertension, hyperlipidemia. MEDICATION: Per chart. ALLERGIES: NONE. SOCIAL HISTORY: Nonsmoker. No alcohol. No history of drug use. FAMILY HISTORY: Noncontributory. REVIEW OF SYSTEMS: A 12-point review of systems negative, other than mentioned above. PHYSICAL EXAMINATION: A moderately obese lady, appears comfortable at rest. No acute distress. VITAL SIGNS: Currently afebrile. Pulse is 110, blood pressure 124/60, O2 saturation 96 percent on 5L nasal cannula. NECK: Supple. No JVD. No lymphadenopathy. HEART: S1, S2. No added sounds or murmurs. CHEST: Diminished air entry bilaterally. ABDOMEN: Soft, nontender. No guarding or rebound. EXTREMITIES: No cyanosis, clubbing, or edema. NEUROLOGIC: Generalized weakness, but no focal deficits. LABORATORY DATA: White count 13.4, hemoglobin 14.2, BUN 44, creatinine 0.77. ABG: pH 7.3, PCO2 of 54, PO2 of 147. Chest x- ray was reviewed, shows bibasilar atelectasis. IMPRESSION AND PLAN: Hypoxemic respiratory failure, likely secondary to combination of diastolic heart failure and acute bronchospasm. Patient will require a steroid taper, bronchodilators, supplemental O2, gentle diuresis, echocardiogram to evaluate LV function. Dictated By: Ramiro Orta MD /dmitry/patricia /Document#: [id number]
[2016-10-30] MEDS: MONTELUKAST 10 MG TAB PO SCH (20:45)
[2016-10-30] MEDS: ATORVASTATIN 10 MG TAB PO SCH (20:45)
[2016-10-31] VITALS (13 sets, daily range): BP systolic 107–135; BP diastolic 57–67; PULSE 93–109; RESP 15–20
[2016-10-31] MEDS: LEVALBUTEROL (NEB) 0.63 MG/3 ML AMP HHN SCH ×6 (00:21→20:56)
[2016-10-31] MEDS: ACCU-CHEK XX SCH ×2 (02:21)
[2016-10-31 07:15] LABS: BASOPHIL # 0.1 10^3/ul (0.0-0.1); BASOPHILS % 0.3 % (0.0-2.0); HEMATOCRIT 42.5 % (37.0-47.0); HEMOGLOBIN 14.2 g/dl (12.0-16.0); LYMPHOCYTES # 1.1 10^3/ul (0.8-2.9); LYMPHOCYTES % 5.8 % (15.0-51.0); MEAN CORPUSCULAR HEMOGLOBIN 28.1 pg (29.0-33.0); MEAN CORPUSCULAR HGB CONC 33.4 g/dl (32.0-37.0); MEAN PLATELET VOLUME 8.8 fl (7.4-10.4); MONOCYTE # 1.4 10^3/ul (0.3-0.9); MONOCYTES % 7.5 % (0.0-11.0); NEUTROPHILS % 81.8 % (39.0-77.0); PLATELET COUNT 354 10^3/UL (140-415); RED BLOOD COUNT 5.06 10^6/ul (4.20-5.40); WHITE BLOOD COUNT 18.1 10^3/ul (4.8-10.8)
[2016-10-31 07:34] LABS: CALCIUM 8.5 mg/dl (8.4-10.2); CREATININE 0.72 mg/dl (0.44-1.00); POTASSIUM 3.8 mmol/L (3.5-5.1)
[2016-10-31] MEDS: INSULIN GLARGINE [LANtus] 3 ML PEN SC SCH (08:08)
[2016-10-31] MEDS: INSULIN ASPART [NOVOLOG] 3 ML PEN SC SCH ×6 (08:08→21:00)
[2016-10-31] MEDS: TIOTROPIUM 18 MCG CAPSULE INHA DEV INH SCH (08:55)
[2016-10-31] MEDS: SALMETEROL/FLUTICASONE 500/50 INHA INH SCH ×2 (08:56→21:04)
[2016-10-31] MEDS: ASPIRIN (EC) 81 MG TAB PO SCH (08:57)
[2016-10-31] MEDS: METHYLPREDNISOLONE 40 MG INJ IV SCH ×2 (08:58→21:00)
[2016-10-31] MEDS: AMLODIPINE 5 MG TAB PO SCH ×2 (08:58→21:00)
[2016-10-31] MEDS: FUROSEMIDE 40 MG INJ IV SCH (08:58)
[2016-10-31] MEDS: LOSARTAN 50 MG TAB PO SCH (08:58)
[2016-10-31] MEDS: ENOXAPARIN 40 MG/0.4 ML SYG SC SCH (09:00)
[2016-10-31] MEDS: BUDESONIDE (NEB) 0.5MG/2ML AMP HHN SCH ×2 (09:17→20:00)
--- NOTE | 2016-10-31 10:24 | RADRPT ---
Echocardiogram Report Patient Name: NANCY FIELDS Gender: Female Date: 1935 Study Date: 31-Oct-2016 Patent Paralegal: Louis Wilkins [facility] Location: [id number] Ref. Physician: JUDAH NGUYEN Quality: Technically Difficult Study Procedures: Transthoracic echocardiogram with complete 2D, M-Mode, and doppler examination. Indications: resp failure. 2D/M Mode Doppler Measurement Value Normal Ranges Measurement Value Normal Ranges LVIDd 2D 2.9 3.5 - 5.6 cm ULISES Vmax 2.2 cm2 LVIDs 2D 1.0 2.1 - 4.1 cm ULISES VTI 1.9 cm2 FS 2D 63.8 % AV Mean Jose Roberto 2.0 m/sec LVPWd 2D 1.0 0.6 - 1.1 cm AV Mean PG 18.0 mmHg IVSd 2D 1.1 0.6 - 1.1 cm AV Peak Jose Roberto 2.7 m/sec IVS/LVPW 2D 1.0 AV Peak PG 29.0 mmHg AoR Diam 2D 2.6 2.0 - 3.7 cm AV VTI 41.8 cm LA/Ao 2D 1 0 - 1 LVOT Mean Jose Roberto 1.3 m/sec EDV 2D 24.4 cm3 LVOT Mean PG 8.0 mmHg ESV 2D 1.2 cm3 LVOT Peak Jose Roberto 2.1 m/sec LA Dimen 2D 2.8 2.3 - 4.0 cm LVOT Peak PG 18.0 mmHg LVOT Diam 1.9 cm LVOT VTI 28.1 cm LVOT Area 2.8 cm2 TR Peak Jose Roberto 1.7 m/sec TR Peak PG 12.0 mmHg RVSP 15.0 mmHg Findings Left Ventricle: Hyperdynamic left ventricular systolic function. Normal left ventricular cavity size. Mild concentric left ventricular hypertrophy. Ejection fraction is visually estimated at 70 %. Tissue Doppler/Mitral Doppler indices are consistent with impaired relaxation (Stage I diastolic dysfunction). Resting left ventricular outflow tract velocity 2.71 m/sec. Resting left ventricular outflow tract gradient 29.0 mmHg. Velocity4.86 m/sec. Max PG38.00 mmHg. Right Ventricle: Normal right ventricular size. Normal right ventricular systolic function. Left Atrium: The left atrium is normal in size. Right Atrium: The right atrium is normal in size. Mitral Valve: Mitral valve is not well visualized. Trace mitral regurgitation. Aortic Valve: No significant aortic stenosis or insufficiency. Aortic cusps appear mildly calcified. Tricuspid Valve: Normal appearance of the tricuspid valve. Estimated peak PA systolic pressure 15 mmHg. There is trace tricuspid regurgitation. Pulmonic Valve: Normal pulmonic valve appearance. Pericardium: Normal pericardium with no significant pericardial effusion. Aorta: Normal aortic root. IVC: Normal size and normal respiratory collapse consistent with normal right atrial pressure. Conclusions 1.Hyperdynamic left ventricular systolic function. Normal left ventricular cavity size. Mild concentric left ventricular hypertrophy. Ejection fraction is visually estimated at 70 %. Tissue Doppler/Mitral Doppler indices are consistent with impaired relaxation (Stage I diastolic dysfunction). Resting left ventricular outflow tract velocity 2.71 m/sec. Resting left ventricular outflow tract gradient 29.0 mmHg. Velocity4.86 m/sec. Max PG38.00 mmHg. 2.No significant aortic stenosis or insufficiency. Aortic cusps appear mildly calcified. Electronically Signed By: Christiano Rosado 31-Oct-2016 10:23:56 -0700 Patient Name: NANCY FIELDS Study Date: 31-Oct-2016 [id number]
--- NOTE | 2016-10-31 11:35 | CONS ---
Date/Time of Note Date/Time of Note DATE: 10/31/16 TIME: 11:33 Consult Date/Type/Reason Admit Date/Time Oct 23, 2016 at 10:25 Initial Consult Date Type of Consultation: pulm Subjective Patient comfortable this morning. Still having wheezing. Objective Vital Signs Date Time Temp Pulse Resp B/P Pulse Ox O2 Delivery O2 Flow Rate FiO2 10/31/16 09:29 112 20 94 Nasal Cannula 6.0 10/31/16 07:39 98.6 135/61 Intake and Output 10/30/16 10/30/16 10/31/16 15:00 23:00 07:00 Intake Total 500 ml 300 ml Balance 500 ml 300 ml Exam PHYSICAL EXAMINATION: A moderately obese lady, appears comfortable at rest. No acute distress. VITAL SIGNS: NECK: Supple. No JVD. No lymphadenopathy. HEART: S1, S2. No added sounds or murmurs. CHEST: Diminished air entry bilaterally. ABDOMEN: Soft, nontender. No guarding or rebound. EXTREMITIES: No cyanosis, clubbing, or edema. NEUROLOGIC: Generalized weakness, but no focal deficits. Results/Medications Result Diagram: 10/31/16 0634 10/31/16 0634 Results 24 hrs Laboratory Tests Test 10/30/16 12:05 10/30/16 17:16 10/30/16 20:48 10/31/16 02:19 Bedside Glucose 341 H 279 H 205 244 H Test 10/31/16 06:34 10/31/16 08:02 White Blood Count 18.1 #H Red Blood Count 5.06 Hemoglobin 14.2 Hematocrit 42.5 Mean Corpuscular Volume 84.0 Mean Corpuscular Hemoglobin 28.1 L Mean Corpuscular Hemoglobin Concent 33.4 Red Cell Distribution Width 14.0 Platelet Count 354 Mean Platelet Volume 8.8 Neutrophils % 81.8 H Lymphocytes % 5.8 L Monocytes % 7.5 Eosinophils % 0.0 Basophils % 0.3 Nucleated Red Blood Cells % 0.0 Neutrophils # (Manual) 14.8 H Lymphocytes # 1.1 Monocytes # 1.4 H Eosinophils # 0.0 Basophils # 0.1 Nucleated Red Blood Cells # 0.0 Sodium Level 130 L Potassium Level 3.8 Chloride Level 91 L Carbon Dioxide Level 32 H Anion Gap 11 Blood Urea Nitrogen 49 H Creatinine 0.72 Glucose Level 267 H Calcium Level 8.5 Bedside Glucose 234 H Medications Current Medications Acetaminophen (Tylenol Tab) 650 mg Q6H PRN PO PAIN LEVEL 1-3 OR FEVER; Start at 11:00 Acetaminophen/ Hydrocodone Bitart ([place] (5/325)) 1 tab Q6H PRN PO PAIN LEVEL 4 -6 Last administered on 10/25/16 03:00; Admin Dose 1 TAB; Start 10/23/16 at 11: 00 Docusate Sodium (Colace) 100 mg Q12H PRN PO CONSTIPATION; Start 10/23/16 at 11: 00 Magnesium Hydroxide (Milk Of Mag) 30 ml DAILY PRN PO CONSTIPATION; Start at 11:00 Bisacodyl (Dulcolax) 5 mg DAILY PRN PO CONSTIPATION; Start 10/23/16 at 11:00 Bisacodyl (Dulcolax Supp) 10 mg DAILY PRN [place] CONSTIPATION; Start 10/23/16 at 11 :00 Enoxaparin Sodium (Lovenox) 40 mg DAILY SC Last administered on 10/31/16 09:00 ; Admin Dose 40 MG; Start 10/24/16 at 09:00 Aspirin (Halfprin) 81 mg DAILY PO Last administered on 10/31/16 08:57; Admin Dose 81 MG; Start 10/24/16 at 09:00 Losartan Potassium (Cozaar) 50 mg DAILY PO Last administered on 10/31/16 08:58 ; Admin Dose 50 MG; Start 10/24/16 at 09:00 Montelukast Sodium (Singulair) 10 mg QHS PO Last administered on 10/30/16 20:45 ; Admin Dose 10 MG; Start 10/23/16 at 21:00 Salmeterol Xinafoate/ Fluticasone (Advair 500/50 Diskus) 1 inh BID INH Last administered on 10/31/16 08:56; Admin Dose 1 INH; Start 10/23/16 at 21:00 Tiotropium [place] (Spiriva) 1 inh DAILY INH Last administered on 10/31/16 08: 55; Admin Dose 1 INH; Start 10/24/16 at 09:00 Atorvastatin Calcium (Lipitor) 10 mg DAILY@21 PO Last administered on 10/30/16 20:45; Admin Dose 10 MG; Start 10/23/16 at 21:00 Diagnostic Test (Pha) (Accu-Chek) 1 ea 02 XX Last administered on 10/31/16 02: 21; Admin Dose 1 EA; Start 10/24/16 at 02:00 Miscellaneous Information 1 ea NOTE XX ; Start 10/23/16 at 18:30 Glucose (Glutose) 15 gm Q15M PRN PO DECREASED GLUCOSE; Start 10/23/16 at 18:30 Glucose (Glutose) 22.5 gm Q15M PRN PO DECREASED GLUCOSE; Start 10/23/16 at 18: 30 Dextrose (D50w Syringe) 25 ml Q15M PRN IV DECREASED GLUCOSE; Start 10/23/16 at 18:30 Dextrose (D50w Syringe) 50 ml Q15M PRN IV DECREASED GLUCOSE; Start 10/23/16 at 18:30 Glucagon (Glucagen) 1 mg Q15M PRN IM DECREASED GLUCOSE; Start 10/23/16 at 18:30 Glucose (Glutose) 15 gm Q15M PRN BUCCAL DECREASED GLUCOSE; Start 10/23/16 at 18 :30 Hydralazine HCl 10 mg 10 mg Q6H PRN IV ELEVATED BLOOD PRESSURE Last administered on 10/26/16 11:11; Admin Dose 10 MG; Start 10/24/16 at 14:00 Levofloxacin/ Dextrose (Levaquin 250 Mg/ D5W 50 ml (Pmx)) 50 ml @ 100 mls/hr Q24H IVPB Last administered on 10/30/16 14:50; Admin Dose 100 MLS/HR; Start at 14:00 Amlodipine Besylate (Norvasc) 5 mg BID PO Last administered on 10/31/16 08:58; Admin Dose 5 MG; Start 10/26/16 at 17:00 Insulin Glargine (Lantus) 18 unit DAILY@08 SC Last administered on 10/31/16 08: 08; Admin Dose 18 UNIT; Start 10/31/16 at 08:00 Diagnostic Test (Pha) (Accu-Chek) 1 ea XX Last administered on 10/31/16 02: 21; Admin Dose 1 EA; Start 10/31/16 at 02:00 Methylprednisolone Sodium Succinate (Solu-Medrol) 40 mg Q12 IV Last administered on 10/31/16 08:58; Admin Dose 40 MG; Start 10/30/16 at 21:00 Furosemide (Lasix) 40 mg DAILY IV Last administered on 10/31/16t 08:58; Admin Dose 40 MG; Start 10/30/16 at 13:30 Cephalexin (Keflex) 500 mg Q8 PO ; Start 10/31/16 at 14:00 Assessment/Plan Chief Complaint/Hosp Course Assessment 1. Tracheobronchitis possible component of diastolic heart failure. 2. Persistent bronchospasm hypoxemia. 3. Likely underlying obstructive sleep apnea. Plan 1. Steroid taper 2. Diuretics 3. Pending echocardiogram 4. Encourage out of bed 5. Outpatient pulmonary function testing and sleep study Problems: JUDAH NGUYEN MD, [facility] Oct 31, 2016 11:35
[2016-10-31] MEDS ORDERED: INSULIN ASPART [NOVOLOG] 3 ML PEN SC SCH (11:50)
[2016-10-31] MEDS: CEPHALEXIN 500 MG CAP PO SCH ×2 (14:32→21:52)
--- NOTE | 2016-10-31 14:42 | RADRPT ---
PROCEDURE: XR Chest. CLINICAL INDICATION: Pneumonia TECHNIQUE: A single AP view of the chest was obtained. COMPARISON: Chest x-ray dated FINDINGS: The lungs are hyperinflated with coarsening of the interstitial markings and increased lucency of th e upper lung zones. There is bibasilar atelectasis. No pleural effusion or pneumothorax is seen. Th e cardiomediastinal silhouette is within normal limits for size. Calcifications are seen within the aortic arch. The osseous structures are unremarkable. IMPRESSION: 1. Hyperinflation of the lungs with chronic-appearing interstitial changes. 2. Bibasilar atelectasis. 3. Aortic atherosclerosis. RPTAT: HH .Dena Park MD, MD Date Time Electronically viewed and signed by .Dena Park MD, on 10/31/2016 14:41 .G/
[2016-10-31] MEDS: LEVOFLOXACIN 250MG/D5W (PMX) 50 ML IVPB SCH (14:49)
--- NOTE | 2016-10-31 15:48 | PN ---
Date/Time of Note Date/Time of Note DATE: 10/31/16 TIME: 15:46 Assessment/Plan VTE Prophylaxis VTE Prophylaxis Intervention: LMWH Lines/Catheters [facility] Saline Lock Assessment/Plan Chief Complaint/Hosp Course 1. Acute hypoxic respiratory failure. Still has minimal hypercapnia. Most probably secondary to underlying asthma exacerbation. Continue inhaled bronchodilators, tapering dose of steroids, and inhaled steroids. Being followed by pulmonology. 2. Urinary tract infection. Continue antimicrobials. No evidence of any septic shock. 3. Type 2 diabetes mellitus. Hemoglobin A1c 6.2. Continue sliding scale insulin. Blood sugars running high because of underlying steroid use. 4. Hyperdynamic left ventricular systolic function. Patient hemodynamically stable. 5. Fluids, electrolytes, and nutrition. Carbohydrate controlled diet. 6. DVT prophylaxis. Subcutaneous Lovenox. 7. Gastrointestinal prophylaxis. Histamine 2 receptor blockers. 8. Plan. Continue current management. Case discussed with Dr. Thomas. Problems: Subjective 24 Hr Interval Summary Free Text/Dictation Continues to have significant dyspnea. Exam/Review of Systems Vital Signs Vitals Vital Signs Date Time Temp Pulse Resp B/P Pulse Ox O2 Delivery O2 Flow Rate FiO2 10/31/16 12:12 101 10/31/16 11:56 98.8 18 107/57 89 10/31/16 09:29 Nasal Cannula 6.0 Intake and Output 10/30/16 10/30/16 10/31/16 14:59 22:59 06:59 Intake Total 500 ml 300 ml Balance 500 ml 300 ml Exam General: Adequately build 81 year-old female lying in bed in mild to moderate respiratory distress. HEENT: Normocephalic, atraumatic. Eyes: Anicteric sclerae, conjunctivae clear. ENT: Nasal septum midline, oral mucosa moist. Neck supple, no JVD noticed. Respiratory: Bilaterally diminished breath sounds. Use of accessory muscles of respiration. Bilateral rales with occasional wheezing. Cardiovascular: S1, S2 heard. No murmurs or gallops. Abdomen: Soft, nontender, and nondistended. Bowel sounds positive in all 4 quadrants. Genitourinary: Deferred. Extremities: No cyanosis, no edema. Peripheral pulses palpable. Neurologic: Cranial nerves II through XII grossly intact. The patient is awake, alert, and oriented. Skin: Normal skin turgor. No skin rashes. Results Result Diagram: 10/31/16 0634 10/31/16 0634 Results 24 hrs Laboratory Tests Test 10/30/16 17:16 10/30/16 20:48 10/31/16 02:19 10/31/16 06:34 Bedside Glucose 279 H 205 244 H White Blood Count 18.1 #H Red Blood Count 5.06 Hemoglobin 14.2 Hematocrit 42.5 Mean Corpuscular Volume 84.0 Mean Corpuscular Hemoglobin 28.1 L Mean Corpuscular Hemoglobin Concent 33.4 Red Cell Distribution Width 14.0 Platelet Count 354 Mean Platelet Volume 8.8 Neutrophils % 81.8 H Lymphocytes % 5.8 L Monocytes % 7.5 Eosinophils % 0.0 Basophils % 0.3 Nucleated Red Blood Cells % 0.0 Neutrophils # (Manual) 14.8 H Lymphocytes # 1.1 Monocytes # 1.4 H Eosinophils # 0.0 Basophils # 0.1 Nucleated Red Blood Cells # 0.0 Sodium Level 130 L Potassium Level 3.8 Chloride Level 91 L Carbon Dioxide Level 32 H Anion Gap 11 Blood Urea Nitrogen 49 H Creatinine 0.72 Glucose Level 267 H Calcium Level 8.5 Test 10/31/16 08:02 10/31/16 12:02 Bedside Glucose 234 H 175 Medications Medications Current Medications Acetaminophen (Tylenol Tab) 650 mg Q6H PRN PO PAIN LEVEL 1-3 OR FEVER; Start at 11:00 Acetaminophen/ Hydrocodone Bitart ([place] (5/325)) 1 tab Q6H PRN PO PAIN LEVEL 4 -6 Last administered on 10/25/16 03:00; Admin Dose 1 TAB; Start 10/23/16 at 11: 00 Docusate Sodium (Colace) 100 mg Q12H PRN PO CONSTIPATION; Start 10/23/16 at 11: 00 Magnesium Hydroxide (Milk Of Mag) 30 ml DAILY PRN PO CONSTIPATION; Start at 11:00 Bisacodyl (Dulcolax) 5 mg DAILY PRN PO CONSTIPATION; Start 10/23/16 at 11:00 Bisacodyl (Dulcolax Supp) 10 mg DAILY PRN [place] CONSTIPATION; Start 10/23/16 at 11 :00 Enoxaparin Sodium (Lovenox) 40 mg DAILY SC Last administered on 10/31/16 09:00 ; Admin Dose 40 MG; Start 10/24/16 at 09:00 Aspirin (Halfprin) 81 mg DAILY PO Last administered on 10/31/16 08:57; Admin Dose 81 MG; Start 10/24/16 at 09:00 Losartan Potassium (Cozaar) 50 mg DAILY PO Last administered on 10/31/16 08:58 ; Admin Dose 50 MG; Start 10/24/16 at 09:00 Montelukast Sodium (Singulair) 10 mg QHS PO Last administered on 10/30/16 20:45 ; Admin Dose 10 MG; Start 10/23/16 at 21:00 Salmeterol Xinafoate/ Fluticasone (Advair 500/50 Diskus) 1 inh BID INH Last administered on 10/31/16 08:56; Admin Dose 1 INH; Start 10/23/16 at 21:00 Tiotropium [place] (Spiriva) 1 inh DAILY INH Last administered on 10/31/16 08: 55; Admin Dose 1 INH; Start 10/24/16 at 09:00 Atorvastatin Calcium (Lipitor) 10 mg DAILY@21 PO Last administered on 10/30/16 20:45; Admin Dose 10 MG; Start 10/23/16 at 21:00 Diagnostic Test (Pha) (Accu-Chek) 1 ea 02 XX Last administered on 10/31/16 02: 21; Admin Dose 1 EA; Start 10/24/16 at 02:00 Miscellaneous Information 1 ea NOTE XX ; Start 10/23/16 at 18:30 Glucose (Glutose) 15 gm Q15M PRN PO DECREASED GLUCOSE; Start 10/23/16 at 18:30 Glucose (Glutose) 22.5 gm Q15M PRN PO DECREASED GLUCOSE; Start 10/23/16 at 18: 30 Dextrose (D50w Syringe) 25 ml Q15M PRN IV DECREASED GLUCOSE; Start 10/23/16 at 18:30 Dextrose (D50w Syringe) 50 ml Q15M PRN IV DECREASED GLUCOSE; Start 10/23/16 at 18:30 Glucagon (Glucagen) 1 mg Q15M PRN IM DECREASED GLUCOSE; Start 10/23/16 at 18:30 Glucose (Glutose) 15 gm Q15M PRN BUCCAL DECREASED GLUCOSE; Start 10/23/16 at 18 :30 Hydralazine HCl 10 mg 10 mg Q6H PRN IV ELEVATED BLOOD PRESSURE Last administered on 10/26/16 11:11; Admin Dose 10 MG; Start 10/24/16 at 14:00 Levofloxacin/ Dextrose (Levaquin 250 Mg/ D5W 50 ml (Pmx)) 50 ml @ 100 mls/hr Q24H IVPB Last administered on 10/31/16 14:49; Admin Dose 100 MLS/HR; Start at 14:00 Amlodipine Besylate (Norvasc) 5 mg BID PO Last administered on 10/31/16 08:58; Admin Dose 5 MG; Start 10/26/16 at 17:00 Insulin Glargine (Lantus) 18 unit DAILY@08 SC Last administered on 10/31/16 08: 08; Admin Dose 18 UNIT; Start 10/31/16 at 08:00 Diagnostic Test (Pha) (Accu-Chek) 1 ea 02 XX Last administered on 10/31/16 02: 21; Admin Dose 1 EA; Start 10/31/16 at 02:00 Methylprednisolone Sodium Succinate (Solu-Medrol) 40 mg Q12 IV Last administered on 10/31/16 08:58; Admin Dose 40 MG; Start 10/30/16 at 21:00 Furosemide (Lasix) 40 mg DAILY IV Last administered on 10/31/16 08:58; Admin Dose 40 MG; Start 10/30/16 at 13:30 Cephalexin (Keflex) 500 mg Q8 PO Last administered on 10/31/16 14:32; Admin Dose 500 MG; Start 10/31/16 at 14:00 RAYMOND LARIOS NP Oct 31, 2016 15:48
[2016-10-31] MEDS: ATORVASTATIN 10 MG TAB PO SCH (21:00)
[2016-10-31] MEDS: MONTELUKAST 10 MG TAB PO SCH (21:00)
[2016-10-31] MEDS: FAMOTIDINE 20 MG TAB PO SCH (21:00)
[2016-11-01] VITALS (11 sets, daily range): BP systolic 121–131; BP diastolic 60–67; PULSE 98–110; RESP 16–19
[2016-11-01] MEDS: LEVALBUTEROL (NEB) 0.63 MG/3 ML AMP HHN SCH ×6 (01:40→20:30)
[2016-11-01] MEDS: ACCU-CHEK XX SCH ×2 (01:46→01:47)
[2016-11-01] MEDS: CEPHALEXIN 500 MG CAP PO SCH ×3 (05:59→21:50)
[2016-11-01 07:49] LABS: BASOPHILS % 0.2 % (0.0-2.0); HEMATOCRIT 41.1 % (37.0-47.0); HEMOGLOBIN 13.4 g/dl (12.0-16.0); LYMPHOCYTES # 1.3 10^3/ul (0.8-2.9); LYMPHOCYTES % 7.5 % (15.0-51.0); MEAN CORPUSCULAR HEMOGLOBIN 27.2 pg (29.0-33.0); MEAN CORPUSCULAR HGB CONC 32.6 g/dl (32.0-37.0); MEAN CORPUSCULAR VOLUME 83.5 fl (82.0-101.0); MEAN PLATELET VOLUME 9.1 fl (7.4-10.4); MONOCYTE # 1.2 10^3/ul (0.3-0.9); NEUTROPHILS % 80.3 % (39.0-77.0); PLATELET COUNT 331 10^3/UL (140-415); RED BLOOD COUNT 4.92 10^6/ul (4.20-5.40); RED CELL DISTRIBUTION WIDTH 14.1 % (11.5-14.5); WHITE BLOOD COUNT 17.8 10^3/ul (4.8-10.8)
[2016-11-01] MEDS: INSULIN ASPART [NOVOLOG] 3 ML PEN SC SCH ×7 (08:09→20:58)
[2016-11-01] MEDS: INSULIN GLARGINE [LANtus] 3 ML PEN SC SCH (08:11)
[2016-11-01] MEDS: TIOTROPIUM 18 MCG CAPSULE INHA DEV INH SCH (08:17)
[2016-11-01] MEDS: SALMETEROL/FLUTICASONE 500/50 INHA INH SCH ×2 (08:17→20:59)
[2016-11-01] MEDS: METHYLPREDNISOLONE 40 MG INJ IV SCH ×2 (08:18→20:58)
[2016-11-01] MEDS: FAMOTIDINE 20 MG TAB PO SCH ×2 (08:18→20:58)
[2016-11-01] MEDS: ASPIRIN (EC) 81 MG TAB PO SCH (08:18)
[2016-11-01] MEDS: LOSARTAN 50 MG TAB PO SCH (08:18)
[2016-11-01] MEDS: AMLODIPINE 5 MG TAB PO SCH ×2 (08:19→20:59)
[2016-11-01] MEDS: FUROSEMIDE 40 MG INJ IV SCH (08:19)
[2016-11-01 08:26] LABS: CALCIUM 8.1 mg/dl (8.4-10.2); CREATININE 0.69 mg/dl (0.44-1.00); POTASSIUM 3.8 mmol/L (3.5-5.1)
[2016-11-01 08:27] LABS: MAGNESIUM 2.3 mg/dl (1.7-2.5); PHOSPHORUS 5.3 mg/dl (2.5-4.9)
[2016-11-01] MEDS: ENOXAPARIN 40 MG/0.4 ML SYG SC SCH (08:32)
[2016-11-01] MEDS: BUDESONIDE (NEB) 0.5MG/2ML AMP HHN SCH ×2 (09:00→20:00)
--- NOTE | 2016-11-01 09:14 | PN ---
Date/Time of Note Date/Time of Note DATE: 11/01/16 TIME: 09:13 Assessment/Plan VTE Prophylaxis VTE Prophylaxis Intervention: LMWH Lines/Catheters IV C[facility]ter Type (from [facility] Saline Lock Assessment/Plan Chief Complaint/Hosp Course 1. Acute hypoxic respiratory failure. Still has minimal hypercapnia. Most probably secondary to underlying asthma exacerbation. Continue inhaled bronchodilators, tapering dose of steroids, and inhaled steroids. Being followed by pulmonology. 2. Urinary tract infection. Continue antimicrobials. No evidence of any septic shock. 3. Type 2 diabetes mellitus. Hemoglobin A1c 6.2. Continue sliding scale insulin. Blood sugars running high because of underlying steroid use. 4. Hyperdynamic left ventricular systolic function. Patient hemodynamically stable. 5. Fluids, electrolytes, and nutrition. Carbohydrate controlled diet. 6. DVT prophylaxis. Subcutaneous Lovenox. 7. Gastrointestinal prophylaxis. Histamine 2 receptor blockers. 8. Plan. Continue current management. Await clinical improvement. Obtain CXR and ABG. Case discussed with Dr. Thomas. Problems: Subjective 24 Hr Interval Summary Free Text/Dictation The patient has been progressively becoming hypoxic. Currently on 100% nonrebreather mask. Exam/Review of Systems Vital Signs Vitals Vital Signs Date Time Temp Pulse Resp B/P Pulse Ox O2 Delivery O2 Flow Rate FiO2 11/01/16 08:12 110 11/01/16 07:51 97.9 18 125/60 94 11/01/16 06:08 12.0 11/01/16 06:07 Simple Mask Intake and Output 10/31/16 10/31/16 11/01/16 15:00 23:00 07:00 Intake Total 800 ml 320 ml Balance 800 ml 320 ml Exam General: Adequately build 81 year-old female lying in bed in moderate respiratory distress. HEENT: Normocephalic, atraumatic. Eyes: Anicteric sclerae, conjunctivae clear. ENT: Nasal septum midline, oral mucosa moist. Neck supple, no JVD noticed. Respiratory: Bilaterally diminished breath sounds. Use of accessory muscles of respiration. Bilateral rales with occasional wheezing. Cardiovascular: S1, S2 heard. No murmurs or gallops. Abdomen: Soft, nontender, and nondistended. Bowel sounds positive in all 4 quadrants. Genitourinary: Deferred. Extremities: No cyanosis, no edema. Peripheral pulses palpable. Neurologic: Cranial nerves II through XII grossly intact. The patient is awake, alert, and oriented. Skin: Normal skin turgor. No skin rashes. Results Result Diagram: 11/01/16 0643 11/01/16 0643 Results 24 hrs Laboratory Tests Test 10/31/16 12:02 10/31/16 18:58 10/31/16 21:10 11/01/16 06:43 Bedside Glucose 175 218 133 White Blood Count 17.8 H Red Blood Count 4.92 Hemoglobin 13.4 Hematocrit 41.1 Mean Corpuscular Volume 83.5 Mean Corpuscular Hemoglobin 27.2 L Mean Corpuscular Hemoglobin Concent 32.6 Red Cell Distribution Width 14.1 Platelet Count 331 Mean Platelet Volume 9.1 Neutrophils % 80.3 H Lymphocytes % 7.5 L Monocytes % 7.0 Eosinophils % 0.0 Basophils % 0.2 Nucleated Red Blood Cells % 0.0 Neutrophils # (Manual) 14.3 H Lymphocytes # 1.3 Monocytes # 1.2 H Eosinophils # 0.0 Basophils # 0.0 Nucleated Red Blood Cells # 0.0 Sodium Level 131 L Potassium Level 3.8 Chloride Level 93 L Carbon Dioxide Level 32 H Anion Gap 10 Blood Urea Nitrogen 46 H Creatinine 0.69 Glucose Level 234 H Calcium Level 8.1 L Phosphorus Level 5.3 H Magnesium Level 2.3 Test 11/01/16 08:03 Bedside Glucose 223 H Medications Medications Current Medications Acetaminophen (Tylenol Tab) 650 mg Q6H PRN PO PAIN LEVEL 1-3 OR FEVER; Start at 11:00 Acetaminophen/ Hydrocodone Bitart ([place] (5/325)) 1 tab Q6H PRN PO PAIN LEVEL 4 -6 Last administered on 10/25/16t 03:00; Admin Dose 1 TAB; Start 10/23/16 at 11: 00 Docusate Sodium (Colace) 100 mg Q12H PRN PO CONSTIPATION; Start 10/23/16 at 11: 00 Magnesium Hydroxide (Milk Of Mag) 30 ml DAILY PRN PO CONSTIPATION; Start at 11:00 Bisacodyl (Dulcolax) 5 mg DAILY PRN PO CONSTIPATION; Start 10/23/16 at 11:00 Bisacodyl (Dulcolax Supp) 10 mg DAILY PRN [place] CONSTIPATION; Start 10/23/16 at 11 :00 Enoxaparin Sodium (Lovenox) 40 mg DAILY SC Last administered on 11/01/16 08:32 ; Admin Dose 40 MG; Start 10/24/16 at 09:00 Aspirin (Halfprin) 81 mg DAILY PO Last administered on 11/01/16 08:18; Admin Dose 81 MG; Start 10/24/16 at 09:00 Losartan Potassium (Cozaar) 50 mg DAILY PO Last administered on 11/01/16 08:18 ; Admin Dose 50 MG; Start 10/24/16 at 09:00 Montelukast Sodium (Singulair) 10 mg QHS PO Last administered on 10/31/16 21:00 ; Admin Dose 10 MG; Start 10/23/16 at 21:00 Salmeterol Xinafoate/ Fluticasone (Advair 500/50 Diskus) 1 inh BID INH Last administered on 11/01/16 08:17; Admin Dose 1 INH; Start 10/23/16 at 21:00 Tiotropium [place] (Spiriva) 1 inh DAILY INH Last administered on 11/01/16 08: 17; Admin Dose 1 INH; Start 10/24/16 at 09:00 Atorvastatin Calcium (Lipitor) 10 mg DAILY@21 PO Last administered on 10/31/16 21:00; Admin Dose 10 MG; Start 10/23/16 at 21:00 Diagnostic Test (Pha) (Accu-Chek) 1 ea 02 XX Last administered on 10/31/16 02: 21; Admin Dose 1 EA; Start 10/24/16 at 02:00 Miscellaneous Information 1 ea NOTE XX ; Start 10/23/16 at 18:30 Glucose (Glutose) 15 gm Q15M PRN PO DECREASED GLUCOSE; Start 10/23/16 at 18:30 Glucose (Glutose) 22.5 gm Q15M PRN PO DECREASED GLUCOSE; Start 10/23/16 at 18: 30 Dextrose (D50w Syringe) 25 ml Q15M PRN IV DECREASED GLUCOSE; Start 10/23/16 at 18:30 Dextrose (D50w Syringe) 50 ml Q15M PRN IV DECREASED GLUCOSE; Start 10/23/16 at 18:30 Glucagon (Glucagen) 1 mg Q15M PRN IM DECREASED GLUCOSE; Start 10/23/16 at 18:30 Glucose (Glutose) 15 gm Q15M PRN BUCCAL DECREASED GLUCOSE; Start 10/23/16 at 18 :30 Hydralazine HCl 10 mg 10 mg Q6H PRN IV ELEVATED BLOOD PRESSURE Last administered on 10/26/16 11:11; Admin Dose 10 MG; Start 10/24/16 at 14:00 Levofloxacin/ Dextrose (Levaquin 250 Mg/ D5W 50 ml (Pmx)) 50 ml @ 100 mls/hr Q24H IVPB Last administered on 10/31/16 14:49; Admin Dose 100 MLS/HR; Start at 14:00 Amlodipine Besylate (Norvasc) 5 mg BID PO Last administered on 11/01/16 08:19; Admin Dose 5 MG; Start 10/26/16 at 17:00 Insulin Glargine (Lantus) 18 unit DAILY@08 SC Last administered on 11/01/16 08: 11; Admin Dose 18 UNIT; Start 10/31/16 at 08:00 Diagnostic Test (Pha) (Accu-Chek) 1 ea 02 XX Last administered on 10/31/16 02: 21; Admin Dose 1 EA; Start 10/31/16 at 02:00 Methylprednisolone Sodium Succinate (Solu-Medrol) 40 mg Q12 IV Last administered on 11/01/16 08:18; Admin Dose 40 MG; Start 10/30/16 at 21:00 Furosemide (Lasix) 40 mg DAILY IV Last administered on 11/01/16 08:19; Admin Dose 40 MG; Start 10/30/16 at 13:30 Cephalexin (Keflex) 500 mg Q8 PO Last administered on 11/01/16 05:59; Admin Dose 500 MG; Start 10/31/16 at 14:00 Famotidine (Pepcid) 20 mg BID PO Last administered on 11/01/16 08:18; Admin Dose 20 MG; Start 10/31/16 at 21:00 RAYMOND LARIOS NP Nov 01, 2016 09:14
[2016-11-01 11:09] LABS: AADO2 Arterial 562.6 mmHg (7.0-24.0); Allen Test ACCEPTAB; Arterial Base Excess 5.8 mmol/L (-3.0-3); Arterial COHb 0.1 % (0.0-3.0); Arterial Fraction of Oxyhgb 97.3 % (93.0-99.0); Arterial HCO3 30.7 mmol/L (22.0-26.0); Arterial MetHb 0.4 % (0.0-1.5); MODE MASK - NRB
--- NOTE | 2016-11-01 11:16 | RADRPT ---
PROCEDURE: XR Chest. CLINICAL INDICATION: Dyspnea TECHNIQUE: Single frontal view of the chest was obtained. COMPARISON: Chest x-ray from 10/31/2016 FINDINGS: The aortic arch is calcified. There is stable mild cardiomegaly. There is a small left pleural effusion. There is stable prominence of interstitial markings, particularly at the lung bases, likely due to c hronic / senescent changes. IMPRESSION: Small left pleural effusion. Stable mild cardiomegaly. Lower lobe - predominant chronic / senescent changes. Aortic atherosclerosis. RPTAT: EE Physician [place] Date Time Electronically viewed and signed by Odell Negron Physician on 11/01/2016 11:15 /
[2016-11-01] MEDS: LEVOFLOXACIN 250MG/D5W (PMX) 50 ML IVPB SCH (14:51)
--- NOTE | 2016-11-01 15:30 | CONS ---
Date/Time of Note Date/Time of Note DATE: 11/01/16 TIME: 15:27 Consult Date/Type/Reason Admit Date/Time Oct 23, 2016 at 10:25 Type of Consultation: pulm Subjective Complaining elevated pulmonary increasing shortness of breath today. Requiring nonrebreather. Clinically looks the same. No accessory muscle use. Objective Vital Signs Date Time Temp Pulse Resp B/P Pulse Ox O2 Delivery O2 Flow Rate FiO2 11/01/16 15:24 98.3 106 18 123/61 92 11/01/16 13:41 Simple Mask 12.0 Intake and Output 10/31/16 10/31/16 11/01/16 15:00 23:00 07:00 Intake Total 800 ml 320 ml Balance 800 ml 320 ml Exam PHYSICAL EXAMINATION: A moderately obese lady, appears comfortable at rest. No acute distress. VITAL SIGNS: NECK: Supple. No JVD. No lymphadenopathy. HEART: S1, S2. No added sounds or murmurs. CHEST: Diminished air entry bilaterally. ABDOMEN: Soft, nontender. No guarding or rebound. EXTREMITIES: No cyanosis, clubbing, or edema. NEUROLOGIC: Generalized weakness, but no focal deficits. Results/Medications Result Diagram: 11/01/16 0643 11/01/16 0643 Results 24 hrs Laboratory Tests Test 10/31/16 18:58 10/31/16 21:10 11/01/16 06:43 11/01/16 08:03 Bedside Glucose 218 133 223 H White Blood Count 17.8 H Red Blood Count 4.92 Hemoglobin 13.4 Hematocrit 41.1 Mean Corpuscular Volume 83.5 Mean Corpuscular Hemoglobin 27.2 L Mean Corpuscular Hemoglobin Concent 32.6 Red Cell Distribution Width 14.1 Platelet Count 331 Mean Platelet Volume 9.1 Neutrophils % 80.3 H Lymphocytes % 7.5 L Monocytes % 7.0 Eosinophils % 0.0 Basophils % 0.2 Nucleated Red Blood Cells % 0.0 Neutrophils # (Manual) 14.3 H Lymphocytes # 1.3 Monocytes # 1.2 H Eosinophils # 0.0 Basophils # 0.0 Nucleated Red Blood Cells # 0.0 Sodium Level 131 L Potassium Level 3.8 Chloride Level 93 L Carbon Dioxide Level 32 H Anion Gap 10 Blood Urea Nitrogen 46 H Creatinine 0.69 Glucose Level 234 H Calcium Level 8.1 L Phosphorus Level 5.3 H Magnesium Level 2.3 Test 11/01/16 10:45 11/01/16 11:58 Blood Gas Specimen Source Blood arterial Arterial Blood Date Drawn 11/01/2016 11:00:48 AM Arterial Blood pH (Temp corrected) 7.453 H Arterial Blood pCO2 (Temp correct) 44.9 Arterial Blood pO2 (Temp corrected) 105.5 H Arterial Blood HCO3 30.7 H Arterial Blood Base Excess 5.8 H Arterial Blood Oxygen Saturation 97.8 Celestine Test ACCEPTAB Arterial Blood Gas Puncture Site Left Radial Arterial Blood Carboxyhemoglobin 0.1 Arterial Blood Methemoglobin 0.4 Blood Gas A-a O2 Differential 562.6 H Oxyhemoglobin Percent 97.3 Total Hemoglobin 16.0 Blood Gas Temperature 37.0 Blood Gas Modality MASK - NRB FiO2 100.0 Blood Gas Notified Whom TM Blood Gas Notified Time 11/01/2016 11:09:19 AM Bedside Glucose 145 Medications Current Medications Acetaminophen (Tylenol Tab) 650 mg Q6H PRN PO PAIN LEVEL 1-3 OR FEVER; Start at 11:00 Acetaminophen/ Hydrocodone Bitart ([place] (5/325)) 1 tab Q6H PRN PO PAIN LEVEL 4 -6 Last administered on 10/25/16 03:00; Admin Dose 1 TAB; Start 10/23/16 at 11: 00 Docusate Sodium (Colace) 100 mg Q12H PRN PO CONSTIPATION; Start 10/23/16 at 11: 00 Magnesium Hydroxide (Milk Of Mag) 30 ml DAILY PRN PO CONSTIPATION; Start at 11:00 Bisacodyl (Dulcolax) 5 mg DAILY PRN PO CONSTIPATION; Start 10/23/16 at 11:00 Bisacodyl (Dulcolax Supp) 10 mg DAILY PRN [place] CONSTIPATION; Start 10/23/16 at 11 :00 Enoxaparin Sodium (Lovenox) 40 mg DAILY SC Last administered on 11/01/16 08:32 ; Admin Dose 40 MG; Start 10/24/16 at 09:00 Aspirin (Halfprin) 81 mg DAILY PO Last administered on 11/01/16 08:18; Admin Dose 81 MG; Start 10/24/16 at 09:00 Losartan Potassium (Cozaar) 50 mg DAILY PO Last administered on 11/01/16 08:18 ; Admin Dose 50 MG; Start 10/24/16 at 09:00 Montelukast Sodium (Singulair) 10 mg QHS PO Last administered on 10/31/16 21:00 ; Admin Dose 10 MG; Start 10/23/16 at 21:00 Salmeterol Xinafoate/ Fluticasone (Advair 500/50 Diskus) 1 inh BID INH Last administered on 11/01/16 08:17; Admin Dose 1 INH; Start 10/23/16 at 21:00 Tiotropium [place] (Spiriva) 1 inh DAILY INH Last administered on 11/01/16 08: 17; Admin Dose 1 INH; Start 10/24/16 at 09:00 Atorvastatin Calcium (Lipitor) 10 mg DAILY@21 PO Last administered on 10/31/16 21:00; Admin Dose 10 MG; Start 10/23/16 at 21:00 Diagnostic Test (Pha) (Accu-Chek) 1 ea 02 XX Last administered on 10/31/16 02: 21; Admin Dose 1 EA; Start 10/24/16 at 02:00 Miscellaneous Information 1 ea NOTE XX ; Start 10/23/16 at 18:30 Glucose (Glutose) 15 gm Q15M PRN PO DECREASED GLUCOSE; Start 10/23/16 at 18:30 Glucose (Glutose) 22.5 gm Q15M PRN PO DECREASED GLUCOSE; Start 10/23/16 at 18: 30 Dextrose (D50w Syringe) 25 ml Q15M PRN IV DECREASED GLUCOSE; Start 10/23/16 at 18:30 Dextrose (D50w Syringe) 50 ml Q15M PRN IV DECREASED GLUCOSE; Start 10/23/16 at 18:30 Glucagon (Glucagen) 1 mg Q15M PRN IM DECREASED GLUCOSE; Start 10/23/16 at 18:30 Glucose (Glutose) 15 gm Q15M PRN BUCCAL DECREASED GLUCOSE; Start 10/23/16 at 18 :30 Hydralazine HCl 10 mg 10 mg Q6H PRN IV ELEVATED BLOOD PRESSURE Last administered on 10/26/16 11:11; Admin Dose 10 MG; Start 10/24/16 at 14:00 Levofloxacin/ Dextrose (Levaquin 250 Mg/ D5W 50 ml (Pmx)) 50 ml @ 100 mls/hr Q24H IVPB Last administered on 11/01/16 14:51; Admin Dose 100 MLS/HR; Start at 14:00 Amlodipine Besylate (Norvasc) 5 mg BID PO Last administered on 11/01/16 08:19; Admin Dose 5 MG; Start 10/26/16 at 17:00 Insulin Glargine (Lantus) 18 unit DAILY@08 SC Last administered on 11/01/16 08: 11; Admin Dose 18 UNIT; Start 10/31/16 at 08:00 Diagnostic Test (Pha) (Accu-Chek) 1 ea 02 XX Last administered on 10/31/16 02: 21; Admin Dose 1 EA; Start 10/31/16 at 02:00 Methylprednisolone Sodium Succinate (Solu-Medrol) 40 mg Q12 IV Last administered on 11/01/16 08:18; Admin Dose 40 MG; Start 10/30/16 at 21:00 Furosemide (Lasix) 40 mg DAILY IV Last administered on 11/01/16 08:19; Admin Dose 40 MG; Start 10/30/16 at 13:30 Cephalexin (Keflex) 500 mg Q8 PO Last administered on 11/01/16 14:51; Admin Dose 500 MG; Start 10/31/16 at 14:00 Famotidine (Pepcid) 20 mg BID PO Last administered on 11/01/16 08:18; Admin Dose 20 MG; Start 10/31/16 at 21:00 Assessment/Plan Chief Complaint/Hosp Course Assessment 1. Tracheobronchitis possible component of diastolic heart failure. 2. Persistent bronchospasm hypoxemia. 3. Likely underlying obstructive sleep apnea. Worsening hypoxemia however radiographically unchanged. Plan 1. Steroid taper 2. Diuretics 3. Echocardiogram shows preserved ejection fraction however stage I diastolic dysfunction. 4. Encourage out of bed 5. Outpatient pulmonary function testing and sleep study Problems: JUDAH NGUYEN MD, [facility] Nov 01, 2016 15:30
[2016-11-01] MEDS: ATORVASTATIN 10 MG TAB PO SCH (20:58)
[2016-11-01] MEDS: MONTELUKAST 10 MG TAB PO SCH (20:58)
[2016-11-01] MEDS ORDERED: DILTIAZEM 25 MG INJ IV ONE (21:30)
[2016-11-01] MEDS ORDERED: DILTIAZEM 25 MG INJ IV PRN (22:15)
[2016-11-02] VITALS (20 sets, daily range): BP systolic 108–139; BP diastolic 52–77; PULSE 106–149; RESP 16–22
[2016-11-02] MEDS: LEVALBUTEROL (NEB) 0.63 MG/3 ML AMP HHN SCH ×7 (00:20→20:07)
[2016-11-02] MEDS: ACCU-CHEK XX SCH ×2 (02:00)
[2016-11-02] MEDS ORDERED: LEVALBUTEROL (NEB) 0.63 MG/3 ML AMP HHN PRN (03:00)
[2016-11-02] MEDS: CEPHALEXIN 500 MG CAP PO SCH ×3 (05:36→22:54)
[2016-11-02 07:37] LABS: BASOPHIL # 0.1 10^3/ul (0.0-0.1); BASOPHILS % 0.6 % (0.0-2.0); HEMATOCRIT 45.2 % (37.0-47.0); LYMPHOCYTES # 0.9 10^3/ul (0.8-2.9); LYMPHOCYTES % 4.6 % (15.0-51.0); MEAN CORPUSCULAR HEMOGLOBIN 28.4 pg (29.0-33.0); MEAN CORPUSCULAR HGB CONC 33.2 g/dl (32.0-37.0); MEAN CORPUSCULAR VOLUME 85.6 fl (82.0-101.0); MEAN PLATELET VOLUME 8.7 fl (7.4-10.4); MONOCYTE # 1.1 10^3/ul (0.3-0.9); MONOCYTES % 5.8 % (0.0-11.0); NEUTROPHILS % 84.9 % (39.0-77.0); PLATELET COUNT 311 10^3/UL (140-415); RED BLOOD COUNT 5.28 10^6/ul (4.20-5.40)
[2016-11-02 07:56] LABS: CALCIUM 8.3 mg/dl (8.4-10.2); CREATININE 0.8 mg/dl (0.44-1.00); POTASSIUM 4.2 mmol/L (3.5-5.1)
[2016-11-02] MEDS: INSULIN ASPART [NOVOLOG] 3 ML PEN SC SCH ×7 (07:56→21:00)
[2016-11-02] MEDS: INSULIN GLARGINE [LANtus] 3 ML PEN SC SCH (08:06)
[2016-11-02] MEDS: ENOXAPARIN 40 MG/0.4 ML SYG SC SCH (08:06)
[2016-11-02] MEDS: METHYLPREDNISOLONE 40 MG INJ IV SCH ×2 (08:07→21:35)
[2016-11-02] MEDS: SALMETEROL/FLUTICASONE 500/50 INHA INH SCH ×2 (08:10→21:35)
[2016-11-02] MEDS: TIOTROPIUM 18 MCG CAPSULE INHA DEV INH SCH (08:10)
[2016-11-02] MEDS: ASPIRIN (EC) 81 MG TAB PO SCH (08:11)
[2016-11-02] MEDS: FAMOTIDINE 20 MG TAB PO SCH ×2 (08:11→21:36)
[2016-11-02] MEDS: FUROSEMIDE 40 MG INJ IV SCH (08:12)
[2016-11-02] MEDS: AMLODIPINE 5 MG TAB PO SCH ×3 (08:12→22:54)
[2016-11-02 08:18] LABS: MAGNESIUM 2.3 mg/dl (1.7-2.5); PHOSPHORUS 5.1 mg/dl (2.5-4.9)
[2016-11-02 08:38] LABS: AADO2 Arterial 370.6 mmHg (7.0-24.0); Allen Test ACCEPTAB; Arterial Base Excess 5.5 mmol/L (-3.0-3); Arterial COHb 0.2 % (0.0-3.0); Arterial Fraction of Oxyhgb 98.9 % (93.0-99.0); Arterial HCO3 30.9 mmol/L (22.0-26.0); Arterial MetHb 0.4 % (0.0-1.5); Arterial Total Hemglobin 15.4 g/dl (12.0-18.0); MODE MASK - NRB
[2016-11-02] MEDS: BUDESONIDE (NEB) 0.5MG/2ML AMP HHN SCH ×2 (09:00→20:07)
--- NOTE | 2016-11-02 09:59 | RADRPT ---
PROCEDURE: XR Chest. CLINICAL INDICATION: pna chf TECHNIQUE: Single frontal view of the chest was obtained COMPARISON: Chest x-ray 11/01/2016 FINDINGS: The patient is rotated rightward. The cardiac silhouette is borderline large. There are atherosclerotic calcifications of the aorta. The aorta is tortuous. There is prominence of the main pulmonary artery which is likely at least partially attributable to patient rotation. There is stable prominence of interstitial markings, most prominent at both lung bases, likely due t o chronic / senescent changes and / or atelectasis. There is a stable small left pleural effusion. No pneumothorax is identified. The osseous structures, as visualized, are unchanged. IMPRESSION: 1. Small pleural effusion, stable. 2. Borderline cardiomegaly. 3. Prominence of the main pulmonary artery, likely secondary to patient rightward rotation. 4. Thoracic aortic atherosclerotic disease. RPTAT: QQ Physician John[place] Date Time Electronically viewed and signed by Cassy Sarmiento Physician on 11/02/2016 09:58 ANTON/
--- NOTE | 2016-11-02 10:23 | PN ---
Date/Time of Note Date/Time of Note DATE: 11/02/16 TIME: 10:22 Assessment/Plan VTE Prophylaxis VTE Prophylaxis Intervention: LMWH Lines/Catheters IV [facility] Saline Lock Assessment/Plan Chief Complaint/Hosp Course 1. Acute hypoxic respiratory failure. Still has minimal hypercapnia. Most probably secondary to underlying asthma exacerbation. Continue inhaled bronchodilators, tapering dose of steroids, and inhaled steroids. Being followed by pulmonology. 2. Urinary tract infection. Continue antimicrobials. No evidence of any septic shock. 3. Type 2 diabetes mellitus. Hemoglobin A1c 6.2. Continue sliding scale insulin. Blood sugars running high because of underlying steroid use. 4. Hyperdynamic left ventricular systolic function. Patient hemodynamically stable. 5. Fluids, electrolytes, and nutrition. Carbohydrate controlled diet. 6. DVT prophylaxis. Subcutaneous Lovenox. 7. Gastrointestinal prophylaxis. Histamine 2 receptor blockers. 8. Plan. Continue current management. Await clinical improvement. Adjust insulin dosing to obtain optimal blood sugar control. Case discussed with Dr. Thomas. Problems: Subjective 24 Hr Interval Summary Free Text/Dictation Remains on high FiO2. Exam/Review of Systems Vital Signs Vitals Vital Signs Date Time Temp Pulse Resp B/P Pulse Ox O2 Delivery O2 Flow Rate FiO2 11/02/16 09:56 15.0 100 11/02/16 09:52 118 30 95 Non Rebreather Mask 11/02/16 08:36 97.7 112/65 Intake and Output 11/01/16 11/01/16 11/02/16 15:00 23:00 07:00 Intake Total 1000 ml 240 ml Balance 1000 ml 240 ml Exam General: Adequately build 81 year-old female lying in bed in moderate respiratory distress. HEENT: Normocephalic, atraumatic. Eyes: Anicteric sclerae, conjunctivae clear. ENT: Nasal septum midline, oral mucosa moist. Neck supple, no JVD noticed. Respiratory: Bilaterally diminished breath sounds. Use of accessory muscles of respiration. Bilateral rales with occasional wheezing. Cardiovascular: S1, S2 heard. No murmurs or gallops. Abdomen: Soft, nontender, and nondistended. Bowel sounds positive in all 4 quadrants. Genitourinary: Deferred. Extremities: No cyanosis, no edema. Peripheral pulses palpable. Neurologic: Cranial nerves II through XII grossly intact. The patient is awake, alert, and oriented. Skin: Normal skin turgor. No skin rashes. Results Result Diagram: 11/02/16 0720 11/02/16 0720 Results 24 hrs Laboratory Tests Test 11/01/16 10:45 11/01/16 11:58 11/01/16 17:10 11/01/16 20:57 Blood Gas Specimen Source Blood arterial Arterial Blood Date Drawn 11/01/2016 11:00:48 AM Arterial Blood pH (Temp corrected) 7.453 H Arterial Blood pCO2 (Temp correct) 44.9 Arterial Blood pO2 (Temp corrected) 105.5 H Arterial Blood HCO3 30.7 H Arterial Blood Base Excess 5.8 H Arterial Blood Oxygen Saturation 97.8 Celestine Test ACCEPTAB Arterial Blood Gas Puncture Site Left Radial Arterial Blood Carboxyhemoglobin 0.1 Arterial Blood Methemoglobin 0.4 Blood Gas A-a O2 Differential 562.6 H Oxyhemoglobin Percent 97.3 Total Hemoglobin 16.0 Blood Gas Temperature 37.0 Blood Gas Modality MASK - NRB FiO2 100.0 Blood Gas Notified Whom TM Blood Gas Notified Time 11/01/2016 11:09:19 AM Bedside Glucose 145 85 136 Test 11/02/16 07:00 11/02/16 07:20 11/02/16 07:51 Blood Gas Specimen Source Blood arterial Arterial Blood Date Drawn 11/02/2016 7:50:16 AM Arterial Blood pH (Temp corrected) 7.429 Arterial Blood pCO2 (Temp correct) 47.8 H Arterial Blood pO2 (Temp corrected) 294.6 H Arterial Blood HCO3 30.9 H Arterial Blood Base Excess 5.5 H Arterial Blood Oxygen Saturation 99.5 Celestine Test ACCEPTAB Arterial Blood Gas Puncture Site Right Radial Arterial Blood Carboxyhemoglobin 0.2 Arterial Blood Methemoglobin 0.4 Blood Gas A-a O2 Differential 370.6 H Oxyhemoglobin Percent 98.9 Total Hemoglobin 15.4 Blood Gas Temperature 37.0 Blood Gas Modality MASK - NRB FiO2 100.0 Blood Gas Notified Whom JLD Blood Gas Notified Time 11/02/2016 8:37:51 AM White Blood Count 19.0 H Red Blood Count 5.28 Hemoglobin 15.0 Hematocrit 45.2 Mean Corpuscular Volume 85.6 Mean Corpuscular Hemoglobin 28.4 L Mean Corpuscular Hemoglobin Concent 33.2 Red Cell Distribution Width 14.0 Platelet Count 311 Mean Platelet Volume 8.7 Neutrophils % 84.9 H Lymphocytes % 4.6 L Monocytes % 5.8 Eosinophils % 0.0 Basophils % 0.6 Nucleated Red Blood Cells % 0.0 Neutrophils # (Manual) 16.2 H Lymphocytes # 0.9 Monocytes # 1.1 H Eosinophils # 0.0 Basophils # 0.1 Nucleated Red Blood Cells # 0.0 Sodium Level 131 L Potassium Level 4.2 Chloride Level 93 L Carbon Dioxide Level 30 Anion Gap 12 Blood Urea Nitrogen 37 H Creatinine 0.80 Glucose Level 361 H Calcium Level 8.3 L Phosphorus Level 5.1 H Magnesium Level 2.3 Bedside Glucose 325 H Medications Medications Current Medications Acetaminophen (Tylenol Tab) 650 mg Q6H PRN PO PAIN LEVEL 1-3 OR FEVER; Start at 11:00 Acetaminophen/ Hydrocodone Bitart ([place] (5/325)) 1 tab Q6H PRN PO PAIN LEVEL 4 -6 Last administered on 10/25/16 03:00; Admin Dose 1 TAB; Start 10/23/16 at 11: 00 Docusate Sodium (Colace) 100 mg Q12H PRN PO CONSTIPATION; Start 10/23/16 at 11: 00 Magnesium Hydroxide (Milk Of Mag) 30 ml DAILY PRN PO CONSTIPATION; Start at 11:00 Bisacodyl (Dulcolax) 5 mg DAILY PRN PO CONSTIPATION; Start 10/23/16 at 11:00 Bisacodyl (Dulcolax Supp) 10 mg DAILY PRN [place] CONSTIPATION; Start 10/23/16 at 11 :00 Enoxaparin Sodium (Lovenox) 40 mg DAILY SC Last administered on 11/02/16 08:06 ; Admin Dose 40 MG; Start 10/24/16 at 09:00 Aspirin (Halfprin) 81 mg DAILY PO Last administered on 11/02/16 08:11; Admin Dose 81 MG; Start 10/24/16 at 09:00 Losartan Potassium (Cozaar) 50 mg DAILY PO Last administered on 11/01/16 08:18 ; Admin Dose 50 MG; Start 10/24/16 at 09:00 Montelukast Sodium (Singulair) 10 mg QHS PO Last administered on 11/01/16 20:58 ; Admin Dose 10 MG; Start 10/23/16 at 21:00 Salmeterol Xinafoate/ Fluticasone (Advair 500/50 Diskus) 1 inh BID INH Last administered on 11/02/16 08:10; Admin Dose 1 INH; Start 10/23/16 at 21:00 Tiotropium [place] (Spiriva) 1 inh DAILY INH Last administered on 11/02/16 08: 10; Admin Dose 1 INH; Start 10/24/16 at 09:00 Atorvastatin Calcium (Lipitor) 10 mg DAILY@21 PO Last administered on 11/01/16 20:58; Admin Dose 10 MG; Start 10/23/16 at 21:00 Diagnostic Test (Pha) (Accu-Chek) 1 ea 02 XX Last administered on 10/31/16 02: 21; Admin Dose 1 EA; Start 10/24/16 at 02:00 Miscellaneous Information 1 ea NOTE XX ; Start 10/23/16 at 18:30 Glucose (Glutose) 15 gm Q15M PRN PO DECREASED GLUCOSE; Start 10/23/16 at 18:30 Glucose (Glutose) 22.5 gm Q15M PRN PO DECREASED GLUCOSE; Start 10/23/16 at 18: 30 Dextrose (D50w Syringe) 25 ml Q15M PRN IV DECREASED GLUCOSE; Start 10/23/16 at 18:30 Dextrose (D50w Syringe) 50 ml Q15M PRN IV DECREASED GLUCOSE; Start 10/23/16 at 18:30 Glucagon (Glucagen) 1 mg Q15M PRN IM DECREASED GLUCOSE; Start 10/23/16 at 18:30 Glucose (Glutose) 15 gm Q15M PRN BUCCAL DECREASED GLUCOSE; Start 10/23/16 at 18 :30 Hydralazine HCl 10 mg 10 mg Q6H PRN IV ELEVATED BLOOD PRESSURE Last administered on 10/26/16 11:11; Admin Dose 10 MG; Start 10/24/16 at 14:00 Levofloxacin/ Dextrose (Levaquin 250 Mg/ D5W 50 ml (Pmx)) 50 ml @ 100 mls/hr Q24H IVPB Last administered on 11/01/16 14:51; Admin Dose 100 MLS/HR; Start at 14:00 Amlodipine Besylate (Norvasc) 5 mg BID PO Last administered on 11/02/16 08:12; Admin Dose 5 MG; Start 10/26/16 at 17:00 Insulin Glargine (Lantus) 18 unit DAILY@08 SC Last administered on 11/02/16 08: 06; Admin Dose 18 UNIT; Start 10/31/16 at 08:00 Diagnostic Test (Pha) (Accu-Chek) 1 ea 02 XX Last administered on 10/31/16 02: 21; Admin Dose 1 EA; Start 10/31/16 at 02:00 Methylprednisolone Sodium Succinate (Solu-Medrol) 40 mg Q12 IV Last administered on 11/02/16 08:07; Admin Dose 40 MG; Start 10/30/16 at 21:00 Furosemide (Lasix) 40 mg DAILY IV Last administered on 11/02/16 08:12; Admin Dose 40 MG; Start 10/30/16 at 13:30 Cephalexin (Keflex) 500 mg Q8 PO Last administered on 11/02/16 05:36; Admin Dose 500 MG; Start 10/31/16 at 14:00 Famotidine (Pepcid) 20 mg BID PO Last administered on 11/02/16 08:11; Admin Dose 20 MG; Start 10/31/16 at 21:00 Diltiazem HCl (Cardizem Iv) 10 mg Q4H PRN IV hr>120; Start 11/01/16 at 22:15 RAYMOND LARIOS NP Nov 02, 2016 10:23
[2016-11-02] MEDS: LOSARTAN 50 MG TAB PO SCH (11:45)
[2016-11-02] MEDS: LEVOFLOXACIN 250MG/D5W (PMX) 50 ML IVPB SCH (13:59)
[2016-11-02 15:16] LABS: AADO2 Arterial 605.7 mmHg (7.0-24.0); Allen Test ACCEPTAB; Arterial Base Excess 3.9 mmol/L (-3.0-3); Arterial COHb 0 % (0.0-3.0); Arterial Fraction of Oxyhgb 92.7 % (93.0-99.0); Arterial HCO3 28.3 mmol/L (22.0-26.0); Arterial MetHb 0.4 % (0.0-1.5); Arterial Total Hemglobin 14.9 g/dl (12.0-18.0); MODE MASK - NRB
--- NOTE | 2016-11-02 16:40 | CONS ---
Date/Time of Note Date/Time of Note DATE: 11/02/16 TIME: 16:39 Consult Date/Type/Reason Admit Date/Time Oct 23, 2016 at 10:25 Type of Consultation: pulm Subjective Still has significant shortness of breath requiring NRB Objective Vital Signs Date Time Temp Pulse Resp B/P Pulse Ox O2 Delivery O2 Flow Rate FiO2 11/02/16 16:00 107 11/02/16 15:31 98.7 19 124/69 99 11/02/16 12:38 Non Rebreather Mask 15.0 100 Intake and Output 11/01/16 11/01/16 11/02/16 15:00 23:00 07:00 Intake Total 1000 ml 240 ml Balance 1000 ml 240 ml Exam Exam PHYSICAL EXAMINATION: A moderately obese lady, appears comfortable at rest. No acute distress. VITAL SIGNS: NECK: Supple. No JVD. No lymphadenopathy. HEART: S1, S2. No added sounds or murmurs. CHEST: Diminished air entry bilaterally. ABDOMEN: Soft, nontender. No guarding or rebound. EXTREMITIES: No cyanosis, clubbing, or edema. NEUROLOGIC: Generalized weakness, but no focal deficits. Results/Medications Result Diagram: 11/02/1671911/02/1620 Results 24 hrs Laboratory Tests Test 11/01/16 17:10 11/01/16 20:57 11/02/16 07:00 11/02/16 07:20 Bedside Glucose 85 136 Blood Gas Specimen Source Blood arterial Arterial Blood Date Drawn 11/02/2016 7:50:16 AM Arterial Blood pH (Temp corrected) 7.429 Arterial Blood pCO2 (Temp correct) 47.8 H Arterial Blood pO2 (Temp corrected) 294.6 H Arterial Blood HCO3 30.9 H Arterial Blood Base Excess 5.5 H Arterial Blood Oxygen Saturation 99.5 Celestine Test ACCEPTAB Arterial Blood Gas Puncture Site Right Radial Arterial Blood Carboxyhemoglobin 0.2 Arterial Blood Methemoglobin 0.4 Blood Gas A-a O2 Differential 370.6 H Oxyhemoglobin Percent 98.9 Total Hemoglobin 15.4 Blood Gas Temperature 37.0 Blood Gas Modality MASK - NRB FiO2 100.0 Blood Gas Notified Whom JLD Blood Gas Notified Time 11/02/2016 8:37:51 AM White Blood Count 19.0 H Red Blood Count 5.28 Hemoglobin 15.0 Hematocrit 45.2 Mean Corpuscular Volume 85.6 Mean Corpuscular Hemoglobin 28.4 L Mean Corpuscular Hemoglobin Concent 33.2 Red Cell Distribution Width 14.0 Platelet Count 311 Mean Platelet Volume 8.7 Neutrophils % 84.9 H Lymphocytes % 4.6 L Monocytes % 5.8 Eosinophils % 0.0 Basophils % 0.6 Nucleated Red Blood Cells % 0.0 Neutrophils # (Manual) 16.2 H Lymphocytes # 0.9 Monocytes # 1.1 H Eosinophils # 0.0 Basophils # 0.1 Nucleated Red Blood Cells # 0.0 Sodium Level 131 L Potassium Level 4.2 Chloride Level 93 L Carbon Dioxide Level 30 Anion Gap 12 Blood Urea Nitrogen 37 H Creatinine 0.80 Glucose Level 361 H Calcium Level 8.3 L Phosphorus Level 5.1 H Magnesium Level 2.3 Test 11/02/16 07:51 11/02/16 11:46 11/02/16 14:42 Bedside Glucose 325 H 371 H Blood Gas Specimen Source Blood arterial Arterial Blood Date Drawn 11/02/2016 3:05:35 PM Arterial Blood pH (Temp corrected) 7.450 Arterial Blood pCO2 (Temp correct) 41.6 Arterial Blood pO2 (Temp corrected) 65.7 L Arterial Blood HCO3 28.3 H Arterial Blood Base Excess 3.9 H Arterial Blood Oxygen Saturation 93.1 L Celestine Test ACCEPTAB Arterial Blood Gas Puncture Site Right Radial Arterial Blood Carboxyhemoglobin 0 Arterial Blood Methemoglobin 0.4 Blood Gas A-a O2 Differential 605.7 H Oxyhemoglobin Percent 92.7 L Total Hemoglobin 14.9 Blood Gas Temperature 37.0 Blood Gas Modality MASK - NRB FiO2 100.0 Blood Gas Notified Whom JLD Blood Gas Notified Time 11/02/2016 3:16:06 PM Medications Current Medications Acetaminophen (Tylenol Tab) 650 mg Q6H PRN PO PAIN LEVEL 1-3 OR FEVER; Start at 11:00 Acetaminophen/ Hydrocodone Bitart ([place] (5/325)) 1 tab Q6H PRN PO PAIN LEVEL 4 -6 Last administered on 10/25/16t 03:00; Admin Dose 1 TAB; Start 10/23/16 at 11: 00 Docusate Sodium (Colace) 100 mg Q12H PRN PO CONSTIPATION; Start 10/23/16 at 11: 00 Magnesium Hydroxide (Milk Of Mag) 30 ml DAILY PRN PO CONSTIPATION; Start at 11:00 Bisacodyl (Dulcolax) 5 mg DAILY PRN PO CONSTIPATION; Start 10/23/16 at 11:00 Bisacodyl (Dulcolax Supp) 10 mg DAILY PRN [place] CONSTIPATION; Start 10/23/16 at 11 :00 Enoxaparin Sodium (Lovenox) 40 mg DAILY SC Last administered on 11/02/16 08:06 ; Admin Dose 40 MG; Start 10/24/16 at 09:00 Aspirin (Halfprin) 81 mg DAILY PO Last administered on 11/02/16 08:11; Admin Dose 81 MG; Start 10/24/16 at 09:00 Losartan Potassium (Cozaar) 50 mg DAILY PO Last administered on 11/02/16 11:45 ; Admin Dose 50 MG; Start 10/24/16 at 09:00 Montelukast Sodium (Singulair) 10 mg QHS PO Last administered on 11/01/16 20:58 ; Admin Dose 10 MG; Start 10/23/16 at 21:00 Salmeterol Xinafoate/ Fluticasone (Advair 500/50 Diskus) 1 inh BID INH Last administered on 11/02/16 08:10; Admin Dose 1 INH; Start 10/23/16 at 21:00 Tiotropium [place] (Spiriva) 1 inh DAILY INH Last administered on 11/02/16 08: 10; Admin Dose 1 INH; Start 10/24/16 at 09:00 Atorvastatin Calcium (Lipitor) 10 mg DAILY@21 PO Last administered on 11/01/16 20:58; Admin Dose 10 MG; Start 10/23/16 at 21:00 Diagnostic Test (Pha) (Accu-Chek) 1 ea 02 XX Last administered on 10/31/16 02: 21; Admin Dose 1 EA; Start 10/24/16 at 02:00 Miscellaneous Information 1 ea NOTE XX ; Start 10/23/16 at 18:30 Glucose (Glutose) 15 gm Q15M PRN PO DECREASED GLUCOSE; Start 10/23/16 at 18:30 Glucose (Glutose) 22.5 gm Q15M PRN PO DECREASED GLUCOSE; Start 10/23/16 at 18: 30 Dextrose (D50w Syringe) 25 ml Q15M PRN IV DECREASED GLUCOSE; Start 10/23/16 at 18:30 Dextrose (D50w Syringe) 50 ml Q15M PRN IV DECREASED GLUCOSE; Start 10/23/16 at 18:30 Glucagon (Glucagen) 1 mg Q15M PRN IM DECREASED GLUCOSE; Start 10/23/16 at 18:30 Glucose (Glutose) 15 gm Q15M PRN BUCCAL DECREASED GLUCOSE; Start 10/23/16 at 18 :30 Hydralazine HCl 10 mg 10 mg Q6H PRN IV ELEVATED BLOOD PRESSURE Last administered on 10/26/16 11:11; Admin Dose 10 MG; Start 10/24/16 at 14:00 Levofloxacin/ Dextrose (Levaquin 250 Mg/ D5W 50 ml (Pmx)) 50 ml @ 100 mls/hr Q24H IVPB Last administered on 11/02/16 13:59; Admin Dose 100 MLS/HR; Start at 14:00 Amlodipine Besylate (Norvasc) 5 mg BID PO Last administered on 11/02/16 08:12; Admin Dose 5 MG; Start 10/26/16 at 17:00 Diagnostic Test (Pha) (Accu-Chek) 1 ea 02 XX Last administered on 10/31/16 02: 21; Admin Dose 1 EA; Start 10/31/16 at 02:00 Methylprednisolone Sodium Succinate (Solu-Medrol) 40 mg Q12 IV Last administered on 11/02/16 08:07; Admin Dose 40 MG; Start 10/30/16 at 21:00 Furosemide (Lasix) 40 mg DAILY IV Last administered on 11/02/16 08:12; Admin Dose 40 MG; Start 10/30/16 at 13:30 Cephalexin (Keflex) 500 mg Q8 PO Last administered on 11/02/16 13:59; Admin Dose 500 MG; Start 10/31/16 at 14:00 Famotidine (Pepcid) 20 mg BID PO Last administered on 11/02/16 08:11; Admin Dose 20 MG; Start 10/31/16 at 21:00 Diltiazem HCl (Cardizem Iv) 10 mg Q4H PRN IV hr>120; Start 11/01/16 at 22:15 Insulin Glargine (Lantus) 20 unit DAILY@08 SC ; Start 11/03/16 at 08:00 Assessment/Plan Chief Complaint/Hosp Course Assessment 1. Tracheobronchitis possible component of diastolic heart failure. 2. Persistent bronchospasm hypoxemia. 3. Likely underlying obstructive sleep apnea. Worsening hypoxemia however radiographically unchanged. Plan 1. Steroids. 2. Diuretics 3. Echocardiogram shows preserved ejection fraction however stage I diastolic dysfunction. 4. CTPA r/o PE 5. Outpatient pulmonary function testing and sleep study patient remains tenuous, will transfer to ICU for closer monitoring. Problems: JUDAH NGUYEN MD, [facility] Nov 02, 2016 16:40
--- NOTE | 2016-11-02 19:04 | RADRPT ---
PROCEDURE: XR Chest 1 view. CLINICAL INDICATION: Shortness of breath. TECHNIQUE: AP views of the chest were obtained. COMPARISON: November 02, 2016 at 08:23 a.m. FINDINGS: The heart is large. Calcified atherosclerosis is noted in the aorta. Bibasilar infiltrates, combine d small pleural effusions are stable, given and this is in technique. Calcified granuloma is seen at the right apex. Osseous structures are intact. IMPRESSION: Cardiomegaly with calcified atherosclerosis in the aorta. Stable bibasilar infiltrates and small pleural effusions. Calcified granuloma at the right apex. RPTAT: AA .Cabrera Chan MD, MD Date Time Electronically viewed and signed by .Cabrera Chan MD, MD on 11/02/2016 18:52 .P/
[2016-11-02] MEDS ORDERED: IOHEXOL 350MG/ML 50 ML BTL ONE (20:33)
[2016-11-02] MEDS ORDERED: IOHEXOL 100 ML ONE (20:33)
[2016-11-02] MEDS ORDERED: SOD CHLORIDE 0.9% 100 ML ONE (20:33)
[2016-11-02] MEDS: MONTELUKAST 10 MG TAB PO SCH (21:36)
[2016-11-02] MEDS: ATORVASTATIN 10 MG TAB PO SCH (21:36)
[2016-11-03] VITALS (34 sets, daily range): BP systolic 85–137; BP diastolic 53–89; PULSE 79–96; RESP 13–32
[2016-11-03] MEDS: LEVALBUTEROL (NEB) 0.63 MG/3 ML AMP HHN SCH ×6 (01:22→20:09)
[2016-11-03] MEDS: ACCU-CHEK XX SCH ×2 (01:47→01:48)
--- NOTE | 2016-11-03 02:38 | RADRPT ---
PROCEDURE: CTA Chest CLINICAL INDICATION: Shortness of breath TECHNIQUE: Thin section spiral CT images were obtained through the vasculature of the chest during administration of 115 cc of Omnipaque 350 contrast material. Multiplanar reconstructions and 3-D m aximum intensity projection reconstructed images were performed. The images were reviewed on a PACS workstation. The total exam CTDI equals 16.42 mGy, and the total exam DLP equals 622.47 mGy-cm. One or more of the following dose reduction techniques were used: automated exposure control, adjust ment of the mA and/or kV according to patient size, or use of iterative reconstruction technique. COMPARISON: Chest x-ray from 11/02/2016 FINDINGS: Peribronchial and septal thickening is seen, most prominent anteriorly in the right upper lobe, late rally in the middle lobe, and at both lung bases. Some patchy alveolar opacity in the left lower lob e may be due to infectious infiltrate. More confluent 1.7 cm opacity at the medial left lung base ma y be due to atelectasis or infiltrate but an underlying nodule is possible. There are multiple scatt ered predominately small nodules peripherally in the right upper and lower lobes but also in the lef t lower lobe and lingula. The appearance is more suggestive of an infectious or inflammatory etiolog y rather than metastatic disease. There is mild diffuse enlargement of the thyroid with a partially calcified 1 cm nodule. Aortic and coronary artery atherosclerotic change. Cardiomegaly. Fluid-filled lower lobe bronchi. Some debris is seen in the proximal esophagus and a small of fluid is seen laye ring in the trachea. Small hiatal hernia. Bilateral renal cysts are seen. The kidneys are incompletely imaged but the largest visible cyst measures 4.2 cm in the upper pole left kidney. Dege nerative change of the spine is seen. There is no evidence for pulmonary embolus or aortic aneurysm or dissection. IMPRESSION: No evidence for pulmonary embolus or aortic dissection. Probable infectious or inflammatory process throughout both lung carlos with peribronchial thickening and peribronchial and septal nodularity wi th some more discrete nodular opacities. Bronchiolitis or other infectious or inflammatory process i s suspected rather than metastatic disease. Some debris in the proximal esophagus and small of fluid in the trachea suggests possible aspiration. Correlate clinically. RPTAT: HLBE Lorrie Levy, Physician Date Time Electronically viewed and signed by Lorrie Levy, Physician on 11/03/2016 02:38 LE/
[2016-11-03 05:45] LABS: ABNORMAL IP MESSAGE 1; HEMATOCRIT 40.5 % (37.0-47.0); HEMOGLOBIN 13.1 g/dl (12.0-16.0); MEAN CORPUSCULAR HEMOGLOBIN 27.5 pg (29.0-33.0); MEAN CORPUSCULAR HGB CONC 32.3 g/dl (32.0-37.0); MEAN CORPUSCULAR VOLUME 85.1 fl (82.0-101.0); PLATELET COUNT 281 10^3/UL (140-415); RED BLOOD COUNT 4.76 10^6/ul (4.20-5.40); WHITE BLOOD COUNT 27.1 10^3/ul (4.8-10.8)
[2016-11-03] MEDS: CEPHALEXIN 500 MG CAP PO SCH (05:56)
[2016-11-03 06:02] LABS: MAGNESIUM 2.3 mg/dl (1.7-2.5); PHOSPHORUS 4.2 mg/dl (2.5-4.9)
[2016-11-03 06:13] LABS: POSITIVE DIFF @See below
[2016-11-03 06:15] LABS: CALCIUM 8.1 mg/dl (8.4-10.2); CREATININE 0.67 mg/dl (0.44-1.00); POTASSIUM 4.3 mmol/L (3.5-5.1)
[2016-11-03] MEDS: INSULIN ASPART [NOVOLOG] 3 ML PEN SC SCH ×7 (07:35→21:00)
[2016-11-03 07:39] LABS: ANISOCYTOSIS 1+ (0-0); HYPOCHROMASIA 1+ (0-0); MONOCYTES % (M) 5 % (0-11); PLATELET ESTIMATE NORMAL; POLYCHROMASIA 1+ (0-0); REACTIVE LYMPHOCYTES% (M) 3 % (0-0)
[2016-11-03 08:01] LABS: AADO2 Arterial 545.7 mmHg (7.0-24.0); Allen Test ACCEPTAB; Arterial Base Excess 7.7 mmol/L (-3.0-3); Arterial COHb 0 % (0.0-3.0); Arterial MetHb 0.3 % (0.0-1.5); Arterial Total Hemglobin 14.5 g/dl (12.0-18.0); MODE MASK - NRB
[2016-11-03] MEDS: BUDESONIDE (NEB) 0.5MG/2ML AMP HHN SCH ×2 (08:30→20:09)
[2016-11-03] MEDS: ASPIRIN (EC) 81 MG TAB PO SCH (09:07)
[2016-11-03] MEDS: METHYLPREDNISOLONE 40 MG INJ IV SCH (09:07)
[2016-11-03] MEDS: LOSARTAN 50 MG TAB PO SCH (09:07)
[2016-11-03] MEDS: AMLODIPINE 5 MG TAB PO SCH ×2 (09:07→21:00)
[2016-11-03] MEDS: FUROSEMIDE 40 MG INJ IV SCH (09:08)
[2016-11-03] MEDS: FAMOTIDINE 20 MG TAB PO SCH ×2 (09:08→21:00)
[2016-11-03] MEDS: SALMETEROL/FLUTICASONE 500/50 INHA INH SCH ×2 (09:09→21:52)
[2016-11-03] MEDS: TIOTROPIUM 18 MCG CAPSULE INHA DEV INH SCH (09:09)
[2016-11-03] MEDS: INSULIN GLARGINE [LANtus] 3 ML PEN SC SCH (09:14)
[2016-11-03] MEDS: ENOXAPARIN 40 MG/0.4 ML SYG SC SCH (09:14)
--- NOTE | 2016-11-03 09:32 | PN ---
Date/Time of Note Date/Time of Note DATE: 11/03/16 TIME: 09:30 Assessment/Plan VTE Prophylaxis VTE Prophylaxis Intervention: LMWH Lines/Catheters IV [facility]from [facility] Peripheral IV Urinary Cath still in place: No Assessment/Plan Chief Complaint/Hosp Course 1. Acute hypoxic respiratory failure. CTA negative for any pulmonary embolism. Most probably secondary to underlying asthma exacerbation. Continue inhaled bronchodilators, tapering dose of steroids, and inhaled steroids. Being followed by pulmonology. 2. Probable infectious or inflammatory process throughout both lung carlos with peribronchial thickening and peribronchial and septal nodularity with some more discrete nodular opacities. Possible underlying aspiration as per CT scan findings. Will obtain speech therapy evaluation. Will broaden antibiotics to include anaerobic coverage. Aspiration precautions. 3. Urinary tract infection. Continue antimicrobials. No evidence of any septic shock. 4. Type 2 diabetes mellitus. Hemoglobin A1c 6.2. Continue sliding scale insulin. 5. Hyperdynamic left ventricular systolic function. Patient hemodynamically stable. 6. Fluids, electrolytes, and nutrition. Carbohydrate controlled diet. 7. DVT prophylaxis. Subcutaneous Lovenox. 8. Gastrointestinal prophylaxis. Histamine 2 receptor blockers. 9. Plan. Continue close monitoring. Broaden antibiotic therapy. Continue diuresis. Case discussed with Dr. Kim. Problems: Subjective 24 Hr Interval Summary Free Text/Dictation The patient was moved to intensive care unit on 11/02/2016 because of worsening hypoxia and dyspnea. Exam/Review of Systems Vital Signs Vitals Vital Signs Date Time Temp Pulse Resp B/P Pulse Ox O2 Delivery O2 Flow Rate FiO2 11/03/16 06:00 20 118/64 100 Non Rebreather 11/03/16 04:00 97.8 11/03/16 04:00 85 11/03/16 01:35 15.0 100 Intake and Output 11/02/16 11/02/16 11/03/16 15:00 23:00 07:00 Intake Total 850 ml 90 ml Balance 850 ml 90 ml Exam General: Adequately build 81 year-old female lying in bed in moderate respiratory distress. HEENT: Normocephalic, atraumatic. Eyes: Anicteric sclerae, conjunctivae clear. ENT: Nasal septum midline, oral mucosa moist. Neck supple. JVD noticed. Respiratory: Bilaterally diminished breath sounds. Use of accessory muscles of respiration. Bilateral wheezing. Cardiovascular: S1, S2 heard. No murmurs or gallops. Abdomen: Soft, nontender, and nondistended. Bowel sounds positive in all 4 quadrants. Genitourinary: Deferred. Extremities: No cyanosis, no edema. Peripheral pulses palpable. Neurologic: Cranial nerves II through XII grossly intact. The patient is awake, alert, and oriented. Skin: Normal skin turgor. No skin rashes. Results Result Diagram: 11/03/16 0442 11/03/16 0442 Results 24 hrs Laboratory Tests Test 11/02/16 11:46 11/02/16 14:42 11/02/16 16:55 11/02/16 21:37 Bedside Glucose 371 H 114 149 Blood Gas Specimen Source Blood arterial Arterial Blood Date Drawn 11/02/2016 3:05:35 PM Arterial Blood pH (Temp corrected) 7.450 Arterial Blood pCO2 (Temp correct) 41.6 Arterial Blood pO2 (Temp corrected) 65.7 L Arterial Blood HCO3 28.3 H Arterial Blood Base Excess 3.9 H Arterial Blood Oxygen Saturation 93.1 L Celestine Test ACCEPTAB Arterial Blood Gas Puncture Site Right Radial Arterial Blood Carboxyhemoglobin 0 Arterial Blood Methemoglobin 0.4 Blood Gas A-a O2 Differential 605.7 H Oxyhemoglobin Percent 92.7 L Total Hemoglobin 14.9 Blood Gas Temperature 37.0 Blood Gas Modality MASK - NRB FiO2 100.0 Blood Gas Notified Whom JLD Blood Gas Notified Time 11/02/2016 3:16:06 PM Test 11/03/16 04:42 11/03/16 07:00 11/03/16 09:05 White Blood Count 27.1 #H Red Blood Count 4.76 Hemoglobin 13.1 Hematocrit 40.5 Mean Corpuscular Volume 85.1 Mean Corpuscular Hemoglobin 27.5 L Mean Corpuscular Hemoglobin Concent 32.3 Red Cell Distribution Width 14.0 Platelet Count 281 Mean Platelet Volume 9.0 Neutrophils % Segmented Neutrophils % (Manual) 83 H Lymphocytes % Lymphocytes % (Manual) 9 L Reactive Lymphocytes % (Manual) 3 H Monocytes % Monocytes % (Manual) 5 Eosinophils % Basophils % Nucleated Red Blood Cells % 0.0 Neutrophils # (Manual) Absolute Lymphocytes (Manual) 2.4 Lymphocytes # Reactive Lymphocytes # 0.8 H Monocytes # Absolute Monocytes (Manual) 1.3 H Eosinophils # Basophils # Nucleated Red Blood Cells # Platelet Estimate NORMAL Polychromasia 1+ Hypochromasia 1+ Anisocytosis 1+ Sodium Level 132 L Potassium Level 4.3 Chloride Level 96 L Carbon Dioxide Level 34 H Anion Gap 6 L Blood Urea Nitrogen 36 H Creatinine 0.67 Glucose Level 210 # Calcium Level 8.1 L Phosphorus Level 4.2 Magnesium Level 2.3 Blood Gas Specimen Source Blood arterial Arterial Blood Date Drawn 11/03/2016 7:30:00 AM Arterial Blood pH (Temp corrected) 7.452 H Arterial Blood pCO2 (Temp correct) 48.4 H Arterial Blood pO2 (Temp corrected) 118.9 H Arterial Blood HCO3 33.0 H Arterial Blood Base Excess 7.7 H Arterial Blood Oxygen Saturation 98.3 Celestine Test ACCEPTAB Arterial Blood Gas Puncture Site Right Radial Arterial Blood Carboxyhemoglobin 0 Arterial Blood Methemoglobin 0.3 Blood Gas A-a O2 Differential 545.7 H Oxyhemoglobin Percent 98.0 Total Hemoglobin 14.5 Blood Gas Temperature 37.0 Blood Gas Modality MASK - NRB FiO2 100.0 Blood Gas Notified Whom JLD Blood Gas Notified Time 11/03/2016 8:01:34 AM Bedside Glucose 189 Medications Medications Current Medications Acetaminophen (Tylenol Tab) 650 mg Q6H PRN PO PAIN LEVEL 1-3 OR FEVER; Start at 11:00 Acetaminophen/ Hydrocodone Bitart ([place] (5/325)) 1 tab Q6H PRN PO PAIN LEVEL 4 -6 Last administered on 10/25/16 03:00; Admin Dose 1 TAB; Start 10/23/16 at 11: 00 Docusate Sodium (Colace) 100 mg Q12H PRN PO CONSTIPATION; Start 10/23/16 at 11: 00 Magnesium Hydroxide (Milk Of Mag) 30 ml DAILY PRN PO CONSTIPATION; Start at 11:00 Bisacodyl (Dulcolax) 5 mg DAILY PRN PO CONSTIPATION; Start 10/23/16 at 11:00 Bisacodyl (Dulcolax Supp) 10 mg DAILY PRN [place] CONSTIPATION; Start 10/23/16 at 11 :00 Enoxaparin Sodium (Lovenox) 40 mg DAILY SC Last administered on 11/02/16 08:06 ; Admin Dose 40 MG; Start 10/24/16 at 09:00 Aspirin (Halfprin) 81 mg DAILY PO Last administered on 11/02/16 08:11; Admin Dose 81 MG; Start 10/24/16 at 09:00 Losartan Potassium (Cozaar) 50 mg DAILY PO Last administered on 11/02/16 11:45 ; Admin Dose 50 MG; Start 10/24/16 at 09:00 Montelukast Sodium (Singulair) 10 mg QHS PO Last administered on 11/02/16 21:36 ; Admin Dose 10 MG; Start 10/23/16 at 21:00 Salmeterol Xinafoate/ Fluticasone (Advair 500/50 Diskus) 1 inh BID INH Last administered on 11/02/16 21:35; Admin Dose 1 INH; Start 10/23/16 at 21:00 Tiotropium [place] (Spiriva) 1 inh DAILY INH Last administered on 11/02/16 08: 10; Admin Dose 1 INH; Start 10/24/16 at 09:00 Atorvastatin Calcium (Lipitor) 10 mg DAILY@21 PO Last administered on 11/02/16 21:36; Admin Dose 10 MG; Start 10/23/16 at 21:00 Diagnostic Test (Pha) (Accu-Chek) 1 ea 02 XX Last administered on 10/31/16 02: 21; Admin Dose 1 EA; Start 10/24/16 at 02:00 Miscellaneous Information 1 ea NOTE XX ; Start 10/23/16 at 18:30 Glucose (Glutose) 15 gm Q15M PRN PO DECREASED GLUCOSE; Start 10/23/16 at 18:30 Glucose (Glutose) 22.5 gm Q15M PRN PO DECREASED GLUCOSE; Start 10/23/16 at 18: 30 Dextrose (D50w Syringe) 25 ml Q15M PRN IV DECREASED GLUCOSE; Start 10/23/16 at 18:30 Dextrose (D50w Syringe) 50 ml Q15M PRN IV DECREASED GLUCOSE; Start 10/23/16 at 18:30 Glucagon (Glucagen) 1 mg Q15M PRN IM DECREASED GLUCOSE; Start 10/23/16 at 18:30 Glucose (Glutose) 15 gm Q15M PRN BUCCAL DECREASED GLUCOSE; Start 10/23/16 at 18 :30 Hydralazine HCl 10 mg 10 mg Q6H PRN IV ELEVATED BLOOD PRESSURE Last administered on 10/26/16 11:11; Admin Dose 10 MG; Start 10/24/16 at 14:00 Levofloxacin/ Dextrose (Levaquin 250 Mg/ D5W 50 ml (Pmx)) 50 ml @ 100 mls/hr Q24H IVPB Last administered on 11/02/16 13:59; Admin Dose 100 MLS/HR; Start at 14:00 Amlodipine Besylate (Norvasc) 5 mg BID PO Last administered on 11/02/16 22:54; Admin Dose 5 MG; Start 10/26/16 at 17:00 Diagnostic Test (Pha) (Accu-Chek) 1 ea 02 XX Last administered on 10/31/16 02: 21; Admin Dose 1 EA; Start 10/31/16 at 02:00 Methylprednisolone Sodium Succinate (Solu-Medrol) 40 mg Q12 IV Last administered on 11/02/16 21:35; Admin Dose 40 MG; Start 10/30/16 at 21:00 Furosemide (Lasix) 40 mg DAILY IV Last administered on 11/02/16 08:12; Admin Dose 40 MG; Start 10/30/16 at 13:30 Cephalexin (Keflex) 500 mg Q8 PO Last administered on 11/03/16 05:56; Admin Dose 500 MG; Start 10/31/16 at 14:00 Famotidine (Pepcid) 20 mg BID PO Last administered on 11/02/16 21:36; Admin Dose 20 MG; Start 10/31/16 at 21:00 Diltiazem HCl (Cardizem Iv) 10 mg Q4H PRN IV hr>120; Start 11/01/16 at 22:15 Insulin Glargine (Lantus) 20 unit DAILY@08 SC ; Start 11/03/16 at 08:00 RAYMOND LARIOS NP Nov 03, 2016 09:32
--- NOTE | 2016-11-03 10:24 | CONS ---
Date/Time of Note Date/Time of Note DATE: 11/03/16 TIME: 10:21 Consult Date/Type/Reason Admit Date/Time Oct 23, 2016 at 10:25 Type of Consultation: pulm Subjective Transferred to ICU yesterday for persistent hypoxia on NRB. Awake alert oriented today. Objective Vital Signs Date Time Temp Pulse Resp B/P Pulse Ox O2 Delivery O2 Flow Rate FiO2 11/03/16 08:31 97 8.0 11/03/16 08:31 93 18 Simple Mask 11/03/16 06:00 118/64 11/03/16 04:00 97.8 11/03/16 01:35 100 Intake and Output 11/02/16 11/02/16 11/03/16 15:00 23:00 07:00 Intake Total 850 ml 90 ml Balance 850 ml 90 ml Exam PHYSICAL EXAMINATION: A moderately obese lady, appears comfortable at rest. No acute distress. VITAL SIGNS: NECK: Supple. No JVD. No lymphadenopathy. HEART: S1, S2. No added sounds or murmurs. CHEST: Diminished air entry bilaterally. Persistent bilateral expiratory wheeze. ABDOMEN: Soft, nontender. No guarding or rebound. EXTREMITIES: No cyanosis, clubbing, or edema. NEUROLOGIC: Generalized weakness, but no focal deficits. Results/Medications Result Diagram: 11/03/16 0442 11/03/162 Results 24 hrs Laboratory Tests Test 11/02/16 11:46 11/02/16 14:42 11/02/16 16:55 11/02/16 21:37 Bedside Glucose 371 H 114 149 Blood Gas Specimen Source Blood arterial Arterial Blood Date Drawn 11/02/2016 3:05:35 PM Arterial Blood pH (Temp corrected) 7.450 Arterial Blood pCO2 (Temp correct) 41.6 Arterial Blood pO2 (Temp corrected) 65.7 L Arterial Blood HCO3 28.3 H Arterial Blood Base Excess 3.9 H Arterial Blood Oxygen Saturation 93.1 L Celestine Test ACCEPTAB Arterial Blood Gas Puncture Site Right Radial Arterial Blood Carboxyhemoglobin 0 Arterial Blood Methemoglobin 0.4 Blood Gas A-a O2 Differential 605.7 H Oxyhemoglobin Percent 92.7 L Total Hemoglobin 14.9 Blood Gas Temperature 37.0 Blood Gas Modality MASK - NRB FiO2 100.0 Blood Gas Notified Whom EDD Blood Gas Notified Time 11/02/2016 3:16:06 PM Test 11/03/16 04:42 11/03/16 07:00 11/03/16 09:05 White Blood Count 27.1 #H Red Blood Count 4.76 Hemoglobin 13.1 Hematocrit 40.5 Mean Corpuscular Volume 85.1 Mean Corpuscular Hemoglobin 27.5 L Mean Corpuscular Hemoglobin Concent 32.3 Red Cell Distribution Width 14.0 Platelet Count 281 Mean Platelet Volume 9.0 Neutrophils % Segmented Neutrophils % (Manual) 83 H Lymphocytes % Lymphocytes % (Manual) 9 L Reactive Lymphocytes % (Manual) 3 H Monocytes % Monocytes % (Manual) 5 Eosinophils % Basophils % Nucleated Red Blood Cells % 0.0 Neutrophils # (Manual) Absolute Lymphocytes (Manual) 2.4 Lymphocytes # Reactive Lymphocytes # 0.8 H Monocytes # Absolute Monocytes (Manual) 1.3 H Eosinophils # Basophils # Nucleated Red Blood Cells # Platelet Estimate NORMAL Polychromasia 1+ Hypochromasia 1+ Anisocytosis 1+ Sodium Level 132 L Potassium Level 4.3 Chloride Level 96 L Carbon Dioxide Level 34 H Anion Gap 6 L Blood Urea Nitrogen 36 H Creatinine 0.67 Glucose Level 210 # Calcium Level 8.1 L Phosphorus Level 4.2 Magnesium Level 2.3 Blood Gas Specimen Source Blood arterial Arterial Blood Date Drawn 11/03/2016 7:30:00 AM Arterial Blood pH (Temp corrected) 7.452 H Arterial Blood pCO2 (Temp correct) 48.4 H Arterial Blood pO2 (Temp corrected) 118.9 H Arterial Blood HCO3 33.0 H Arterial Blood Base Excess 7.7 H Arterial Blood Oxygen Saturation 98.3 Celestine Test ACCEPTAB Arterial Blood Gas Puncture Site Right Radial Arterial Blood Carboxyhemoglobin 0 Arterial Blood Methemoglobin 0.3 Blood Gas A-a O2 Differential 545.7 H Oxyhemoglobin Percent 98.0 Total Hemoglobin 14.5 Blood Gas Temperature 37.0 Blood Gas Modality MASK - NRB FiO2 100.0 Blood Gas Notified Whom JLD Blood Gas Notified Time 11/03/2016 8:01:34 AM Bedside Glucose 189 Medications Current Medications Acetaminophen (Tylenol Tab) 650 mg Q6H PRN PO PAIN LEVEL 1-3 OR FEVER; Start at 11:00 Acetaminophen/ Hydrocodone Bitart ([place] (5/325)) 1 tab Q6H PRN PO PAIN LEVEL 4 -6 Last administered on 10/25/16t 03:00; Admin Dose 1 TAB; Start 10/23/16 at 11: 00 Docusate Sodium (Colace) 100 mg Q12H PRN PO CONSTIPATION; Start 10/23/16 at 11: 00 Magnesium Hydroxide (Milk Of Mag) 30 ml DAILY PRN PO CONSTIPATION; Start at 11:00 Bisacodyl (Dulcolax) 5 mg DAILY PRN PO CONSTIPATION; Start 10/23/16 at 11:00 Bisacodyl (Dulcolax Supp) 10 mg DAILY PRN [place] CONSTIPATION; Start 10/23/16 at 11 :00 Enoxaparin Sodium (Lovenox) 40 mg DAILY SC Last administered on 11/03/16 09:14 ; Admin Dose 40 MG; Start 10/24/16 at 09:00 Aspirin (Halfprin) 81 mg DAILY PO Last administered on 11/03/16 09:07; Admin Dose 81 MG; Start 10/24/16 at 09:00 Losartan Potassium (Cozaar) 50 mg DAILY PO Last administered on 11/03/16 09:07 ; Admin Dose 50 MG; Start 10/24/16 at 09:00 Montelukast Sodium (Singulair) 10 mg QHS PO Last administered on 11/02/16 21:36 ; Admin Dose 10 MG; Start 10/23/16 at 21:00 Salmeterol Xinafoate/ Fluticasone (Advair 500/50 Diskus) 1 inh BID INH Last administered on 11/03/16 09:09; Admin Dose 1 INH; Start 10/23/16 at 21:00 Tiotropium [place] (Spiriva) 1 inh DAILY INH Last administered on 11/03/16 09: 09; Admin Dose 1 INH; Start 10/24/16 at 09:00 Atorvastatin Calcium (Lipitor) 10 mg DAILY@21 PO Last administered on 11/02/16 21:36; Admin Dose 10 MG; Start 10/23/16 at 21:00 Diagnostic Test (Pha) (Accu-Chek) 1 ea 02 XX Last administered on 10/31/16 02: 21; Admin Dose 1 EA; Start 10/24/16 at 02:00 Miscellaneous Information 1 ea NOTE XX ; Start 10/23/16 at 18:30 Glucose (Glutose) 15 gm Q15M PRN PO DECREASED GLUCOSE; Start 10/23/16 at 18:30 Glucose (Glutose) 22.5 gm Q15M PRN PO DECREASED GLUCOSE; Start 10/23/16 at 18: 30 Dextrose (D50w Syringe) 25 ml Q15M PRN IV DECREASED GLUCOSE; Start 10/23/16 at 18:30 Dextrose (D50w Syringe) 50 ml Q15M PRN IV DECREASED GLUCOSE; Start 10/23/16 at 18:30 Glucagon (Glucagen) 1 mg Q15M PRN IM DECREASED GLUCOSE; Start 10/23/16 at 18:30 Glucose (Glutose) 15 gm Q15M PRN BUCCAL DECREASED GLUCOSE; Start 10/23/16 at 18 :30 Hydralazine HCl (Apresoline) 10 mg Q6H PRN IV ELEVATED BLOOD PRESSURE Last administered on 10/26/16 11:11; Admin Dose 10 MG; Start 10/24/16 at 14:00 Amlodipine Besylate (Norvasc) 5 mg BID PO Last administered on 11/03/16 09:07; Admin Dose 5 MG; Start 10/26/16 at 17:00 Diagnostic Test (Pha) (Accu-Chek) 1 ea 02 XX Last administered on 10/31/16 02: 21; Admin Dose 1 EA; Start 10/31/16 at 02:00 Methylprednisolone Sodium Succinate (Solu-Medrol) 40 mg Q12 IV Last administered on 11/03/16 09:07; Admin Dose 40 MG; Start 10/30/16 at 21:00 Furosemide (Lasix) 40 mg DAILY IV Last administered on 11/03/16 09:08; Admin Dose 40 MG; Start 10/30/16 at 13:30 Famotidine (Pepcid) 20 mg BID PO Last administered on 11/03/16 09:08; Admin Dose 20 MG; Start 10/31/16 at 21:00 Diltiazem HCl (Cardizem Iv) 10 mg Q4H PRN IV hr>120; Start 11/01/16 at 22:15 Insulin Glargine 20 unit 20 unit DAILY@08 SC Last administered on 11/03/16 09: 14; Admin Dose 20 UNIT; Start 11/03/16 at 08:00 Piperacillin Sod/ Tazobactam Sod (Zosyn 2.25gm/ 50ml (Pmx)) 50 ml @ 100 mls/hr Q8 IVPB ; Start 11/03/16 at 14:00 Assessment/Plan Chief Complaint/Hosp Course Assessment 1. Tracheobronchitis possible component of diastolic heart failure. 2. Persistent bronchospasm hypoxemia. No evidence of PE. 3. Likely underlying obstructive sleep apnea. Plan 1. Steroids, will increase dose. 2. Diuretics 3. Echocardiogram shows preserved ejection fraction however stage I diastolic dysfunction. 4. Broaded antibiotics. 5. Outpatient pulmonary function testing and sleep study Keep in icu. Problems: JUDAH NGUYEN MD, [facility] Nov 03, 2016 10:24
[2016-11-03] MEDS ORDERED: VANCOMYCIN IV PER PHARMACY XX SCH (10:30)
[2016-11-03] MEDS ORDERED: METHYLPREDNISOLONE 40 MG INJ IV SCH (12:00)
[2016-11-03] MEDS ORDERED: VANCOMYCIN 2 GM in SOD CHLORIDE 0.9% 500 ML IVPB SCH (12:00)
[2016-11-03] MEDS: PIPER-TAZO 2.25 GM (PMX) 50 ML IVPB SCH ×2 (13:36→21:52)
[2016-11-03] MEDS: METHYLPREDNISOLONE 125 MG INJ IV SCH ×2 (13:36→17:46)
[2016-11-03 16:17] LABS: ADD UMIC YES; UR ASCORBIC ACID NEGATIVE (NEGATIVE); UR BILIRUBIN (Dip) NEGATIVE (NEGATIVE); UR BLOOD (Dip) 2+ mg/dL (NEGATIVE); UR CLARITY CLEAR (CLEAR); UR COLOR YELLOW (YELLOW); UR GLUCOSE (Dip) NEGATIVE (NEGATIVE); UR KETONES (Dip) NEGATIVE (NEGATIVE); UR LEUKOCYTE ESTERASE (Dip) NEGATIVE Leu/ul (NEGATIVE); UR NITRITE (Dip) NEGATIVE (NEGATIVE); UR RBC 6 /HPF (0-5); UR TOTAL PROTEIN (Dip) NEGATIVE (NEGATIVE); UR UROBILINOGEN (Dip) 1+ mg/dL (NEGATIVE)
--- NOTE | 2016-11-03 16:46 | CONS ---
DATE OF ADMISSION: 10/23/2016 DATE OF CONSULTATION: 11/03/2016 Thank you for this consultation. HISTORY OF PRESENT ILLNESS: This is an 81-year-old woman, who was admitted with asthma exacerbation and acute hypoxemic respiratory distress. She came with temperature of 100.7, pulse 133, respirations 26, blood pressure 190/84, saturation 88 percent. WBC 9.4, H and H 13.5 and 42.2, platelets 249, no shift, no bands. Sodium 138, potassium 4.2, chloride 94, carbon dioxide 29, BUN 15, creatinine 0.67. Negative troponin, normal bilirubin, and LFT. Urinalysis was negative for nitrite, leukocyte esterase, WBCs. Cultures were sent on October 23 and blood cultures so far being negative. Urine culture grew E coli and Enterococcus species but less than 10,000 colonies. Patient had a CT of the chest and thorax yesterday that revealed no evidence for pulmonary embolus or aortic dissection. Probable infectious or inflammatory process throughout both lung carlos with peribronchial thickening and peribronchial and septal nodularity with some more discrete nodular opacities, a bronchiolitis or other infectious or inflammatory process is suspected, rather than metastatic disease. Some debris in the proximal esophagus and small fluid in the trachea suggest possible aspiration. Patient also had 2D echo on admission that revealed ejection fraction of 70 percent, normal left ventricular cavity size, and no significant aortic stenosis or insufficiency. The patient is being seen by pulmonary team. She is currently on vancomycin and Zosyn. She is also on steroids that was started on admission. Her white blood cell count today went up to 27.1, neutrophils 43, no bands. PAST MEDICAL HISTORY: Significant for hypertension and hyperlipidemia. SOCIAL HISTORY: Patient came from home where she is lives with the family. No smoking, alcohol, illicits. REVIEW OF SYSTEMS: All negative. PHYSICAL EXAMINATION: VITAL SIGNS: T-max 97.8, pulse 92, respirations 20, blood pressure 118/64, saturation 97 percent on 8 L of face mask. GENERAL: This is a well-developed, fragile, obese elderly woman, who is awake, comfortable, on face mask at rest and in no distress. HEENT: Head atraumatic, normocephalic. Sclerae anicteric. Buccal mucosa dry. NECK: Supple. CHEST: Rise symmetrical. Breath sounds diminished at the bases with expiratory wheezes. HEART: S1, S2. ABDOMEN: Soft. Bowel sounds present. EXTREMITIES: Without cyanosis. Trace edema. SKIN: Without jaundice, rashes, cyanosis. NEUROLOGIC: Patient is awake and responsive. IMPRESSION: This is an 80-year-old woman admitted with asthma exacerbation and evidence of possible aspiration, pneumonia as per CT of the chest. She also has persistent leukocytosis, however, she had been on steroids since admission. She is being seen by pulmonary team. She was started on broad-spectrum antibiotics, which we will continue. We will order repeat blood cultures and urine cultures. If she produces sputum, we will send sputum for cultures as well. Further recommendations per patient's clinical course, cultures and diagnostics. Discussed with Dr. Vasquez who is covering Dr. Medeiros. workup. We will order. DICTATION ENDS HERE Dictated By: Donald Patiño NP /dmitry/nura /Document#: [id number]
[2016-11-03] MEDS: MONTELUKAST 10 MG TAB PO SCH (21:00)
[2016-11-03] MEDS: ATORVASTATIN 10 MG TAB PO SCH (21:00)
[2016-11-04] VITALS (28 sets, daily range): BP systolic 98–130; BP diastolic 52–96; PULSE 87–112; RESP 13–34
[2016-11-04] MEDS: METHYLPREDNISOLONE 125 MG INJ IV SCH ×5 (00:17→23:35)
[2016-11-04] MEDS: LEVALBUTEROL (NEB) 0.63 MG/3 ML AMP HHN SCH ×6 (01:50→20:54)
[2016-11-04] MEDS: ACCU-CHEK XX SCH ×2 (02:00→03:51)
[2016-11-04] MEDS: PIPER-TAZO 2.25 GM (PMX) 50 ML IVPB SCH ×3 (05:59→22:13)
[2016-11-04 06:39] LABS: ABNORMAL IP MESSAGE 1; BASOPHIL # 0.1 10^3/ul (0.0-0.1); BASOPHILS % 0.2 % (0.0-2.0); HEMATOCRIT 41.6 % (37.0-47.0); HEMOGLOBIN 13.5 g/dl (12.0-16.0); LYMPHOCYTES # 0.9 10^3/ul (0.8-2.9); LYMPHOCYTES % 3.3 % (15.0-51.0); MEAN CORPUSCULAR HEMOGLOBIN 27.7 pg (29.0-33.0); MEAN CORPUSCULAR HGB CONC 32.5 g/dl (32.0-37.0); MEAN CORPUSCULAR VOLUME 85.4 fl (82.0-101.0); NEUTROPHILS % 89.8 % (39.0-77.0); PLATELET COUNT 249 10^3/UL (140-415); RED BLOOD COUNT 4.87 10^6/ul (4.20-5.40)
[2016-11-04 06:52] LABS: POSITIVE DIFF @See below
[2016-11-04 07:16] LABS: MAGNESIUM 2.3 mg/dl (1.7-2.5); PHOSPHORUS 4.1 mg/dl (2.5-4.9)
[2016-11-04 07:22] LABS: ALBUMIN 2.9 g/dl (3.3-4.9); ALBUMIN/GLOBULIN RATIO 1.07; BILIRUBIN,INDIRECT 1.3 mg/dl (0-1.1); BILIRUBIN,TOTAL 1.3 mg/dl (0.2-1.3); CALCIUM 8.1 mg/dl (8.4-10.2); CREATININE 0.62 mg/dl (0.44-1.00); POTASSIUM 3.7 mmol/L (3.5-5.1); TOTAL PROTEIN 5.6 g/dl (6.1-8.1)
[2016-11-04] MEDS: BUDESONIDE (NEB) 0.5MG/2ML AMP HHN SCH ×2 (08:03→20:54)
[2016-11-04 08:11] LABS: AADO2 Arterial 167.9 mmHg (7.0-24.0); Allen Test ACCEPTAB; Arterial Base Excess 6.3 mmol/L (-3.0-3); Arterial COHb 0.3 % (0.0-3.0); Arterial Fraction of Oxyhgb 93.4 % (93.0-99.0); Arterial HCO3 29.8 mmol/L (22.0-26.0); Arterial MetHb 0.3 % (0.0-1.5); Arterial Total Hemglobin 14.7 g/dl (12.0-18.0); MODE NASAL CANNULA
[2016-11-04] MEDS: INSULIN ASPART [NOVOLOG] 3 ML PEN SC SCH ×7 (08:43→21:00)
[2016-11-04] MEDS: INSULIN GLARGINE [LANtus] 3 ML PEN SC SCH (08:44)
--- NOTE | 2016-11-04 09:06 | RADRPT ---
PROCEDURE: XR Chest. CLINICAL INDICATION: CHF/pneumonia. TECHNIQUE: Single frontal chest x-ray. COMPARISON: Chest radiograph and chest CTA 11/02/2016. FINDINGS: The cardiac silhouette remains mildly enlarged. Aortic atherosclerotic vascular calcifications are identified. Persistent reticular nodular densities are noted in bilateral lower lung zone and right upper lung z one which are concerning for infectious/inflammatory process. Otherwise no pneumothorax, pleural eff usion or consolidation is seen. Small calcified granuloma in the right lung apex. There are multilevel degenerative changes of thoracic spine with decreased disk spaces and osteophyt osis. Surgical clips projects over the right upper abdomen likely represent cholecystectomy. IMPRESSION: 1. Persistent mild cardiomegaly and aortic atherosclerosis. 2. Persistent reticular nodular densities in bilateral lower lung zone and right upper lung zone wh ich are concerning for infectious/inflammatory process. RPTAT: UU .Alphonso Abbott MD, Date Time Electronically viewed and signed by .Alphonso Abbott MD, on 11/04/2016 09:05 .N/
--- NOTE | 2016-11-04 09:39 | PN ---
Date/Time of Note Date/Time of Note DATE: 11/04/16 TIME: 09:32 Assessment/Plan VTE Prophylaxis VTE Prophylaxis Intervention: LMWH Lines/Catheters IV [facility] Saline Lock Urinary Cath still in place: Yes Reason Cath still needed: other (indicate) Assessment/Plan Chief Complaint/Hosp Course 1. Acute hypoxic respiratory failure. CTA negative for any pulmonary embolism. Most probably secondary to underlying asthma exacerbation. Continue inhaled bronchodilators, tapering dose of steroids, and inhaled steroids. Being followed by pulmonology. 2. Probable infectious or inflammatory process throughout both lung carlos with peribronchial thickening and peribronchial and septal nodularity with some more discrete nodular opacities. Possible underlying aspiration as per CT scan findings. Status post speech therapy evaluation. To be continued on a pured diet. 3. Leukocytosis. May be multifactorial from underlying steroid use and infectious process. On antibiotics as per infectious diseases. 4. Urinary tract infection. Continue antimicrobials. No evidence of any septic shock. 5. Type 2 diabetes mellitus. Hemoglobin A1c 6.2. Continue sliding scale insulin. 6. Hyperdynamic left ventricular systolic function. Patient hemodynamically stable. 7. Fluids, electrolytes, and nutrition. Pured carbohydrate controlled diet. 8. DVT prophylaxis. Subcutaneous Lovenox. 9. Gastrointestinal prophylaxis. Histamine 2 receptor blockers. 10. Plan. Continue close monitoring. Continue diuresis. The patient looks more stable today. Obtain physical therapy evaluation. May be moved out of the intensive care unit if cleared by pulmonology. Case discussed with Dr. Kim. Problems: Subjective 24 Hr Interval Summary Free Text/Dictation The patient's supplemental oxygen is being titrated down. Exam/Review of Systems Vital Signs Vitals Vital Signs Date Time Temp Pulse Resp B/P Pulse Ox O2 Delivery O2 Flow Rate FiO2 11/04/16 08:04 96 6.0 11/04/16 08:04 90 15 Nasal Cannula 11/04/16 08:00 97.6 124/67 11/03/16 01:35 100 Intake and Output 11/03/16 11/03/16 11/04/16 15:00 23:00 07:00 Intake Total 350 ml 300 ml 50 ml Output Total 1350 ml 180 ml Balance 350 ml -1050 ml -130 ml Exam General: Adequately build 81 year-old female lying in bed in moderate respiratory distress. HEENT: Normocephalic, atraumatic. Eyes: Anicteric sclerae, conjunctivae clear. ENT: Nasal septum midline, oral mucosa moist. Neck supple. JVD noticed. Respiratory: Bilaterally diminished breath sounds. Use of accessory muscles of respiration. Bilateral rales. Cardiovascular: S1, S2 heard. No murmurs or gallops. Abdomen: Soft, nontender, and nondistended. Bowel sounds positive in all 4 quadrants. Genitourinary: Deferred. Extremities: No cyanosis, no edema. Peripheral pulses palpable. Neurologic: Cranial nerves II through XII grossly intact. The patient is awake, alert, and oriented. Skin: Normal skin turgor. No skin rashes. Results Result Diagram: 11/04/16 0520 11/04/16 0520 Results 24 hrs Laboratory Tests Test 11/03/16 13:35 11/03/16 15:30 11/03/16 17:38 11/03/16 21:58 Bedside Glucose 145 137 141 Urine Color YELLOW Urine Clarity CLEAR Urine pH 7.0 Urine Specific [place] 1.020 Urine Ketones NEGATIVE Urine Nitrite NEGATIVE Urine Bilirubin NEGATIVE Urine Urobilinogen 1+ H Urine Leukocyte Esterase NEGATIVE Urine Microscopic RBC 6 H Urine Microscopic WBC 3 Urine Hemoglobin 2+ H Urine Glucose NEGATIVE Urine Total Protein NEGATIVE Test 11/04/16 05:20 11/04/16 07:00 11/04/16 08:05 White Blood Count 26.0 H Red Blood Count 4.87 Hemoglobin 13.5 Hematocrit 41.6 Mean Corpuscular Volume 85.4 Mean Corpuscular Hemoglobin 27.7 L Mean Corpuscular Hemoglobin Concent 32.5 Red Cell Distribution Width 14.0 Platelet Count 249 Mean Platelet Volume 9.0 Neutrophils % 89.8 H Lymphocytes % 3.3 L Monocytes % 4.0 Eosinophils % 0.0 Basophils % 0.2 Nucleated Red Blood Cells % 0.0 Neutrophils # (Manual) 23.4 H Lymphocytes # 0.9 Monocytes # 1.0 H Eosinophils # 0.0 Basophils # 0.1 Nucleated Red Blood Cells # 0.0 Sodium Level 136 Potassium Level 3.7 Chloride Level 99 Carbon Dioxide Level 34 H Anion Gap 7 L Blood Urea Nitrogen 29 H Creatinine 0.62 Glucose Level 173 Calcium Level 8.1 L Phosphorus Level 4.1 Magnesium Level 2.3 Total Bilirubin 1.3 Direct Bilirubin 0.00 Indirect Bilirubin 1.3 H Aspartate Amino Transf (AST/SGOT) 24 Alanine Aminotransferase (ALT/SGPT) 38 Alkaline Phosphatase 57 Total Protein 5.6 L Albumin 2.9 L Globulin 2.70 Albumin/Globulin Ratio 1.07 Blood Gas Specimen Source Blood arterial Arterial Blood Date Drawn 11/04/2016 7:50:42 AM Arterial Blood pH (Temp corrected) 7.501 H Arterial Blood pCO2 (Temp correct) 39.0 Arterial Blood pO2 (Temp corrected) 65.2 L Arterial Blood HCO3 29.8 H Arterial Blood Base Excess 6.3 H Arterial Blood Oxygen Saturation 94.0 L Celestine Test ACCEPTAB Arterial Blood Gas Puncture Site Right Radial Arterial Blood Carboxyhemoglobin 0.3 Arterial Blood Methemoglobin 0.3 Blood Gas A-a O2 Differential 167.9 H Oxyhemoglobin Percent 93.4 Total Hemoglobin 14.7 Blood Gas Temperature 37.0 Blood Gas Modality NASAL CANNULA FiO2 39.0 Blood Gas Notified Whom JLD Blood Gas Notified Time 11/04/2016 8:11:17 AM Bedside Glucose 188 Medications Medications Current Medications Acetaminophen (Tylenol Tab) 650 mg Q6H PRN PO PAIN LEVEL 1-3 OR FEVER; Start at 11:00 Acetaminophen/ Hydrocodone Bitart ([place] (5/325)) 1 tab Q6H PRN PO PAIN LEVEL 4 -6 Last administered on 10/25/16 03:00; Admin Dose 1 TAB; Start 10/23/16 at 11: 00 Docusate Sodium (Colace) 100 mg Q12H PRN PO CONSTIPATION; Start 10/23/16 at 11: 00 Magnesium Hydroxide (Milk Of Mag) 30 ml DAILY PRN PO CONSTIPATION; Start at 11:00 Bisacodyl (Dulcolax) 5 mg DAILY PRN PO CONSTIPATION; Start 10/23/16 at 11:00 Bisacodyl (Dulcolax Supp) 10 mg DAILY PRN [place] CONSTIPATION; Start 10/23/16 at 11 :00 Enoxaparin Sodium (Lovenox) 40 mg DAILY SC Last administered on 11/03/16 09:14 ; Admin Dose 40 MG; Start 10/24/16 at 09:00 Aspirin (Halfprin) 81 mg DAILY PO Last administered on 11/03/16 09:07; Admin Dose 81 MG; Start 10/24/16 at 09:00 Losartan Potassium (Cozaar) 50 mg DAILY PO Last administered on 11/03/16 09:07 ; Admin Dose 50 MG; Start 10/24/16 at 09:00 Montelukast Sodium (Singulair) 10 mg QHS PO Last administered on 11/02/16 21:36 ; Admin Dose 10 MG; Start 10/23/16 at 21:00 Salmeterol Xinafoate/ Fluticasone (Advair 500/50 Diskus) 1 inh BID INH Last administered on 11/03/16 21:52; Admin Dose 1 INH; Start 10/23/16 at 21:00 Tiotropium [place] (Spiriva) 1 inh DAILY INH Last administered on 11/03/16 09: 09; Admin Dose 1 INH; Start 10/24/16 at 09:00 Atorvastatin Calcium (Lipitor) 10 mg DAILY@21 PO Last administered on 11/02/16 21:36; Admin Dose 10 MG; Start 10/23/16 at 21:00 Diagnostic Test (Pha) (Accu-Chek) 1 ea 02 XX Last administered on 10/31/16 02: 21; Admin Dose 1 EA; Start 10/24/16 at 02:00 Miscellaneous Information 1 ea NOTE XX ; Start 10/23/16 at 18:30 Glucose (Glutose) 15 gm Q15M PRN PO DECREASED GLUCOSE; Start 10/23/16 at 18:30 Glucose (Glutose) 22.5 gm Q15M PRN PO DECREASED GLUCOSE; Start 10/23/16 at 18: 30 Dextrose (D50w Syringe) 25 ml Q15M PRN IV DECREASED GLUCOSE; Start 10/23/16 at 18:30 Dextrose (D50w Syringe) 50 ml Q15M PRN IV DECREASED GLUCOSE; Start 10/23/16 at 18:30 Glucagon (Glucagen) 1 mg Q15M PRN IM DECREASED GLUCOSE; Start 10/23/16 at 18:30 Glucose (Glutose) 15 gm Q15M PRN BUCCAL DECREASED GLUCOSE; Start 10/23/16 at 18 :30 Hydralazine HCl (Apresoline) 10 mg Q6H PRN IV ELEVATED BLOOD PRESSURE Last administered on 10/26/16 11:11; Admin Dose 10 MG; Start 10/24/16 at 14:00 Amlodipine Besylate (Norvasc) 5 mg BID PO Last administered on 11/03/16 09:07; Admin Dose 5 MG; Start 10/26/16 at 17:00 Diagnostic Test (Pha) (Accu-Chek) 1 ea 02 XX Last administered on 10/31/16 02: 21; Admin Dose 1 EA; Start 10/31/16 at 02:00 Furosemide (Lasix) 40 mg DAILY IV Last administered on 11/03/16 09:08; Admin Dose 40 MG; Start 10/30/16 at 13:30 Famotidine (Pepcid) 20 mg BID PO Last administered on 11/03/16 09:08; Admin Dose 20 MG; Start 10/31/16 at 21:00 Diltiazem HCl (Cardizem Iv) 10 mg Q4H PRN IV hr>120; Start 11/01/16 at 22:15 Insulin Glargine 20 unit 20 unit DAILY@08 SC Last administered on 11/04/16 08: 44; Admin Dose 20 UNIT; Start 11/03/16 at 08:00 Piperacillin Sod/ Tazobactam Sod (Zosyn 2.25gm/ 50ml (Pmx)) 50 ml @ 100 mls/hr Q8 IVPB Last administered on 11/04/16 05:59; Admin Dose 100 MLS/HR; Start at 14:00 Methylprednisolone Sodium Succinate 60 mg 60 mg Q6 IV Last administered on 05:59; Admin Dose 60 MG; Start 11/03/16 at 12:00 Vancomycin HCl/ Sodium Chloride (Vancocin/NS) 250 ml @ 83.333 mls/ hr Q24H IVPB ; Start 11/04/16 at 14:00 RAYMOND LARIOS NP Nov 04, 2016 09:39
[2016-11-04] MEDS: SALMETEROL/FLUTICASONE 500/50 INHA INH SCH ×2 (09:54→21:05)
[2016-11-04] MEDS: LOSARTAN 50 MG TAB PO SCH (09:55)
[2016-11-04] MEDS: ASPIRIN (EC) 81 MG TAB PO SCH (09:55)
[2016-11-04] MEDS: FUROSEMIDE 40 MG INJ IV SCH (09:55)
[2016-11-04] MEDS: AMLODIPINE 5 MG TAB PO SCH ×2 (09:55→21:05)
[2016-11-04] MEDS: FAMOTIDINE 20 MG TAB PO SCH ×2 (09:55→21:05)
[2016-11-04] MEDS: ENOXAPARIN 40 MG/0.4 ML SYG SC SCH (09:57)
[2016-11-04] MEDS: TIOTROPIUM 18 MCG CAPSULE INHA DEV INH SCH (10:56)
--- NOTE | 2016-11-04 11:50 | PN ---
DATE: 11/04/2016 SUBJECTIVE DATA: The patient was more stable this morning down to 5 L nasal cannula from non-rebreather. States breathing is overall better. Remains hemodynamically stable. OBJECTIVE DATA: VITAL SIGNS: Temperature 98, pulse is 90, blood pressure 124/70. O2 saturation 96 percent. FiO2 of 5 liters. NECK: Supple. No JVD, no lymphadenopathy. CARDIAC: S1, S2. No added sounds or murmurs. CHEST: Chest diminished air entry bilaterally. ABDOMEN: Abdomen is soft, nontender. No guarding or rebound. EXTREMITIES: Extremities no cyanosis, clubbing or edema. NEUROLOGIC: Generalized weakness. No focal deficits. LABS: White count 26, hemoglobin 13.5, platelets of 249,000. BUN 29, creatinine 0.62. ABG: PH 7.5, pCO2 of 39, PO2 65. IMPRESSION: 1. Resolving bronchospasm, likely secondary to acute bronchitis. 2. Hypoxemic respiratory failure. 3. Possible underlying obstructive sleep apnea. PLAN: 1. The patient will need continued steroid taper. 2. Continue current broad-spectrum antibiotics. 3. Continue DVT and GI prophylaxis. 4. Transfer to telemetry. Okay from pulmonary standpoint. Dictated By: Ramiro Orta MD /dmitry/chris /Document#: [id number]
[2016-11-04] MEDS ORDERED: VANCOMYCIN 1.5 GM in SOD CHLORIDE 0.9% 250 ML IVPB SCH (12:00)
[2016-11-04] MEDS: VANCOMYCIN 1.25 GM in SOD CHLORIDE 0.9% 250 ML IVPB SCH (14:25)
[2016-11-04] MEDS ORDERED: ALBUTEROL 0.5% (NEB) 2.5 MG/0.5 ML AMP NEB PRN (15:30)
[2016-11-04] MEDS: metFORMIN 500 MG TAB PO SCH (17:39)
--- NOTE | 2016-11-04 17:53 | PN ---
DATE: 11/04/2016 SUBJECTIVE DATA: No acute changes overnight. The patient is alert, looks comfortable, on nasal cannula. No fevers. OBJECTIVE DATA: Temperature 97.6, pulse 95, respirations 18, blood pressure 106/60, saturation 93 on nasal cannula. LABORATORY AND DIAGNOSTIC DATA: Normal lytes. BUN 29, creatinine 0.62. ANTIMICROBIALS: Patient is on vancomycin and Zosyn. She is also on Solu-Medrol 60 mg q.6 hours. PHYSICAL EXAMINATION: GENERAL: This is an obese, well-developed, elderly woman, who is awake, in no distress. HEENT: Head atraumatic, normocephalic. Sclerae anicteric. Buccal mucosa dry. NECK: Supple. CHEST: Rise symmetrical. Breath sounds diminished at the bases. HEART: S1, S2. ABDOMEN: Soft, bowel sounds present. EXTREMITIES: Without cyanosis or edema. ASSESSMENT: 1. Persistent leukocytosis, likely steroid induced. 2. Acute hypoxemic respiratory failure secondary to asthma exacerbation. 3. Possible aspiration pneumonia. 4. Acute bronchitis. 5. Obesity. 6. Hypertension. 7. Diabetes. 8. Mild urinary tract infection on admission. PLAN: Pending repeat cultures. Continue present care and antibiotics. Follow Pulmonary recommendations. The patient is clinically and hemodynamically stable. Dictated By: Donald Patiño NP /dmitry/zhou /Document#: [id number]
[2016-11-04] MEDS: ATORVASTATIN 10 MG TAB PO SCH (21:05)
[2016-11-04] MEDS: MONTELUKAST 10 MG TAB PO SCH (21:30)
[2016-11-05] VITALS (13 sets, daily range): BP systolic 76–110; BP diastolic 51–65; PULSE 83–105; RESP 16–20
[2016-11-05] MEDS: LEVALBUTEROL (NEB) 0.63 MG/3 ML AMP HHN SCH ×6 (01:04→20:42)
[2016-11-05] MEDS: ACCU-CHEK XX SCH ×2 (02:00)
[2016-11-05] MEDS: METHYLPREDNISOLONE 125 MG INJ IV SCH (05:12)
[2016-11-05] MEDS: PIPER-TAZO 2.25 GM (PMX) 50 ML IVPB SCH ×3 (05:12→21:07)
[2016-11-05] MEDS: INSULIN GLARGINE [LANtus] 3 ML PEN SC SCH (08:13)
[2016-11-05] MEDS: INSULIN ASPART [NOVOLOG] 3 ML PEN SC SCH ×7 (08:13→20:02)
[2016-11-05] MEDS: BUDESONIDE (NEB) 0.5MG/2ML AMP HHN SCH ×2 (08:15→08:21)
[2016-11-05 08:23] LABS: ABNORMAL IP MESSAGE 1; HEMATOCRIT 45.1 % (37.0-47.0); HEMOGLOBIN 14.6 g/dl (12.0-16.0); MEAN CORPUSCULAR HEMOGLOBIN 27.7 pg (29.0-33.0); MEAN CORPUSCULAR HGB CONC 32.4 g/dl (32.0-37.0); MEAN CORPUSCULAR VOLUME 85.4 fl (82.0-101.0); MEAN PLATELET VOLUME 9.2 fl (7.4-10.4); PLATELET COUNT 287 10^3/UL (140-415); RED BLOOD COUNT 5.28 10^6/ul (4.20-5.40); RED CELL DISTRIBUTION WIDTH 14.3 % (11.5-14.5); WHITE BLOOD COUNT 47.2 10^3/ul (4.8-10.8)
[2016-11-05 08:33] LABS: POSITIVE DIFF @See below
[2016-11-05 08:47] LABS: ALBUMIN 2.6 g/dl (3.3-4.9); ALBUMIN/GLOBULIN RATIO 1.04; BILIRUBIN,INDIRECT 1.7 mg/dl (0-1.1); BILIRUBIN,TOTAL 1.7 mg/dl (0.2-1.3); CALCIUM 7.8 mg/dl (8.4-10.2); CREATININE 0.71 mg/dl (0.44-1.00); POTASSIUM 3.1 mmol/L (3.5-5.1); TOTAL PROTEIN 5.1 g/dl (6.1-8.1)
[2016-11-05] MEDS: TIOTROPIUM 18 MCG CAPSULE INHA DEV INH SCH (09:06)
[2016-11-05] MEDS: SALMETEROL/FLUTICASONE 500/50 INHA INH SCH ×2 (09:06→20:02)
[2016-11-05] MEDS: FUROSEMIDE 40 MG INJ IV SCH (09:06)
[2016-11-05] MEDS: ASPIRIN (EC) 81 MG TAB PO SCH (09:07)
[2016-11-05] MEDS: AMLODIPINE 5 MG TAB PO SCH ×2 (09:07→19:53)
[2016-11-05] MEDS: FAMOTIDINE 20 MG TAB PO SCH ×2 (09:07→20:02)
[2016-11-05] MEDS: LOSARTAN 50 MG TAB PO SCH (09:07)
[2016-11-05] MEDS: ENOXAPARIN 40 MG/0.4 ML SYG SC SCH (09:13)
[2016-11-05] MEDS: HYDROCODONE/APAP (5/325) TAB PO PRN (09:36)
[2016-11-05] MEDS: metFORMIN 500 MG TAB PO SCH ×2 (09:37→17:45)
[2016-11-05 10:00] LABS: HYPOCHROMASIA 2+ (0-0); MONOCYTES % (M) 26 % (0-11); PLATELET ESTIMATE NORMAL; POLYCHROMASIA 1+ (0-0)
--- NOTE | 2016-11-05 11:48 | CONS ---
Date/Time of Note Date/Time of Note DATE: 11/05/16 TIME: 11:46 Consult Date/Type/Reason Admit Date/Time Oct 23, 2016 at 10:25 Type of Consultation: pulm Subjective Shortness of breath this morning. Objective Vital Signs Date Time Temp Pulse Resp B/P Pulse Ox O2 Delivery O2 Flow Rate FiO2 11/05/16 08:30 Nasal Cannula 6.0 11/05/16 08:30 89 11/05/16 08:28 98.0 19 110/58 99 11/03/16 01:35 100 Intake and Output 11/04/16 11/04/16 11/05/16 15:00 23:00 07:00 Intake Total 1800 ml 200 ml Output Total 1300 ml 600 ml Balance 500 ml -400 ml Exam OBJECTIVE DATA: VITAL SIGNS: NECK: Supple. No JVD, no lymphadenopathy. CARDIAC: S1, S2. No added sounds or murmurs. CHEST: Chest diminished air entry bilaterally. ABDOMEN: Abdomen is soft, nontender. No guarding or rebound. EXTREMITIES: Extremities no cyanosis, clubbing or edema. NEUROLOGIC: Generalized weakness. No focal deficits. Results/Medications Result Diagram: 11/05/16 0735 11/05/16 0735 Results 24 hrs Laboratory Tests Test 11/04/16 11:49 11/04/16 16:47 11/04/16 21:04 11/05/16 07:35 Bedside Glucose 199 134 163 White Blood Count 47.2 #H Red Blood Count 5.28 Hemoglobin 14.6 Hematocrit 45.1 Mean Corpuscular Volume 85.4 Mean Corpuscular Hemoglobin 27.7 L Mean Corpuscular Hemoglobin Concent 32.4 Red Cell Distribution Width 14.3 Platelet Count 287 Mean Platelet Volume 9.2 Neutrophils % Segmented Neutrophils % (Manual) 57 Band Neutrophils % (Manual) 3 Lymphocytes % Lymphocytes % (Manual) 14 L Monocytes % Monocytes % (Manual) 26 H Eosinophils % Basophils % Nucleated Red Blood Cells % 0.0 Neutrophils # (Manual) 27.6 H Band Neutrophils # 1.4 H Absolute Lymphocytes (Manual) 6.6 H Lymphocytes # Monocytes # Absolute Monocytes (Manual) 12.2 H Eosinophils # Basophils # Nucleated Red Blood Cells # Platelet Estimate NORMAL Polychromasia 1+ Hypochromasia 2+ Sodium Level 136 Potassium Level 3.1 L Chloride Level 95 L Carbon Dioxide Level 34 H Anion Gap 10 Blood Urea Nitrogen 37 H Creatinine 0.71 Glucose Level 262 H Calcium Level 7.8 L Magnesium Level 2.5 Total Bilirubin 1.7 H Direct Bilirubin 0.00 Indirect Bilirubin 1.7 H Aspartate Amino Transf (AST/SGOT) 21 Alanine Aminotransferase (ALT/SGPT) 37 Alkaline Phosphatase 60 Total Protein 5.1 L Albumin 2.6 L Globulin 2.50 Albumin/Globulin Ratio 1.04 Test 11/05/16 07:52 Bedside Glucose 249 H Medications Current Medications Acetaminophen (Tylenol Tab) 650 mg Q6H PRN PO PAIN LEVEL 1-3 OR FEVER; Start at 11:00 Acetaminophen/ Hydrocodone Bitart ([place] (5/325)) 1 tab Q6H PRN PO PAIN LEVEL 4 -6 Last administered on 11/05/16 09:36; Admin Dose 1 TAB; Start 10/23/16 at 11: 00 Docusate Sodium (Colace) 100 mg Q12H PRN PO CONSTIPATION; Start 10/23/16 at 11: 00 Magnesium Hydroxide (Milk Of Mag) 30 ml DAILY PRN PO CONSTIPATION; Start at 11:00 Bisacodyl (Dulcolax) 5 mg DAILY PRN PO CONSTIPATION; Start 10/23/16 at 11:00 Bisacodyl (Dulcolax Supp) [address] CONSTIPATION; Start 10/23/16 at 11 :00 Enoxaparin Sodium (Lovenox) 40 mg DAILY SC Last administered on 11/05/16 09:13 ; Admin Dose 40 MG; Start 10/24/16 at 09:00 Aspirin (Halfprin) 81 mg DAILY PO Last administered on 11/05/16 09:07; Admin Dose 81 MG; Start 10/24/16 at 09:00 Losartan Potassium (Cozaar) 50 mg DAILY PO Last administered on 11/05/16 09:07 ; Admin Dose 50 MG; Start 10/24/16 at 09:00 Montelukast Sodium (Singulair) 10 mg QHS PO Last administered on 11/04/16 21:30 ; Admin Dose 10 MG; Start 10/23/16 at 21:00 Salmeterol Xinafoate/ Fluticasone (Advair 500/50 Diskus) 1 inh BID INH Last administered on 11/05/16 09:06; Admin Dose 1 INH; Start 10/23/16 at 21:00 Tiotropium [place] (Spiriva) 1 inh DAILY INH Last administered on 11/05/16 09: 06; Admin Dose 1 INH; Start 10/24/16 at 09:00 Atorvastatin Calcium (Lipitor) 10 mg DAILY@21 PO Last administered on 11/04/16 21:05; Admin Dose 10 MG; Start 10/23/16 at 21:00 Diagnostic Test (Pha) (Accu-Chek) 1 ea XX Last administered on 10/31/16 02: 21; Admin Dose 1 EA; Start 10/24/16 at 02:00 Miscellaneous Information 1 ea NOTE XX ; Start 10/23/16 at 18:30 Glucose (Glutose) 15 gm Q15M PRN PO DECREASED GLUCOSE; Start 10/23/16 at 18:30 Glucose (Glutose) 22.5 gm Q15M PRN PO DECREASED GLUCOSE; Start 10/23/16 at 18: 30 Dextrose (D50w Syringe) 25 ml Q15M PRN IV DECREASED GLUCOSE; Start 10/23/16 at 18:30 Dextrose (D50w Syringe) 50 ml Q15M PRN IV DECREASED GLUCOSE; Start 10/23/16 at 18:30 Glucagon (Glucagen) 1 mg Q15M PRN IM DECREASED GLUCOSE; Start 10/23/16 at 18:30 Glucose (Glutose) 15 gm Q15M PRN BUCCAL DECREASED GLUCOSE; Start 10/23/16 at 18 :30 Hydralazine HCl (Apresoline) 10 mg Q6H PRN IV ELEVATED BLOOD PRESSURE Last administered on 10/26/16 11:11; Admin Dose 10 MG; Start 10/24/16 at 14:00 Amlodipine Besylate (Norvasc) 5 mg BID PO Last administered on 11/05/16 09:07; Admin Dose 5 MG; Start 10/26/16 at 17:00 Diagnostic Test (Pha) (Accu-Chek) 1 ea XX Last administered on 10/31/16 02: 21; Admin Dose 1 EA; Start 10/31/16 at 02:00 Furosemide (Lasix) 40 mg DAILY IV Last administered on 11/05/16 09:06; Admin Dose 40 MG; Start 10/30/16 at 13:30 Famotidine (Pepcid) 20 mg BID PO Last administered on 11/05/16 09:07; Admin Dose 20 MG; Start 10/31/16 at 21:00 Diltiazem HCl (Cardizem Iv) 10 mg Q4H PRN IV hr>120; Start 11/01/16 at 22:15 Insulin Glargine 20 unit 20 unit DAILY@08 SC Last administered on 11/05/16 08: 13; Admin Dose 20 UNIT; Start 11/03/16 at 08:00 Piperacillin Sod/ Tazobactam Sod (Zosyn 2.25gm/ 50ml (Pmx)) 50 ml @ 100 mls/hr Q8 IVPB Last administered on 11/05/16 05:12; Admin Dose 100 MLS/HR; Start at 14:00 Methylprednisolone Sodium Succinate 60 mg 60 mg Q6 IV Last administered on 05:12; Admin Dose 60 MG; Start 11/03/16 at 12:00 Vancomycin HCl/ Sodium Chloride (Vancocin/NS) 250 ml @ 83.333 mls/ hr Q24H IVPB Last administered on 11/04/16 14:25; Admin Dose 83.333 MLS/HR; Start at 14:00 Assessment/Plan Chief Complaint/Hosp Course IMPRESSION: 1. Resolving bronchospasm, likely secondary to acute bronchitis. 2. Hypoxemic respiratory failure. 3. Possible underlying obstructive sleep apnea. 4. Significantly elevated wbc, out of proportion to steroid dose. ? leuemoid raction ? MDS ? Consider heme onc consult. PLAN: 1. Steroid taper. 2. Continue current broad-spectrum antibiotics. 3. Continue DVT and GI prophylaxis. 4. encourage oob. Problems: JUDAH NGUYEN MD, [facility] Nov 05, 2016 11:48
[2016-11-05] MEDS: METHYLPREDNISOLONE 40 MG INJ IV SCH ×2 (14:05→21:12)
[2016-11-05] MEDS: VANCOMYCIN 1.25 GM in SOD CHLORIDE 0.9% 250 ML IVPB SCH (14:47)
--- NOTE | 2016-11-05 15:56 | PN ---
Date/Time of Note Date/Time of Note DATE: 11/05/16 TIME: 15:54 Assessment/Plan VTE Prophylaxis VTE Prophylaxis Intervention: LMWH Lines/Catheters IV [facility] Type [facility] Saline Lock Urinary Cath still in place: Yes Reason Cath still needed: other (indicate) Assessment/Plan Chief Complaint/Hosp Course 1. Acute hypoxic respiratory failure. CTA negative for any pulmonary embolism. Most probably secondary to underlying asthma exacerbation. Continue inhaled bronchodilators, tapering dose of steroids, and inhaled steroids. Being followed by pulmonology. 2. Probable infectious or inflammatory process throughout both lung carlos with peribronchial thickening and peribronchial and septal nodularity with some more discrete nodular opacities. Possible underlying aspiration as per CT scan findings. Status post speech therapy evaluation. To be continued on a pured diet. 3. Leukocytosis. May be multifactorial from underlying steroid use and infectious process. On antibiotics as per infectious diseases. 4. Urinary tract infection. Continue antimicrobials. No evidence of any septic shock. Repeat urine cultures negative. 5. Type 2 diabetes mellitus. Hemoglobin A1c 6.2. Continue sliding scale insulin. 6. Hyperdynamic left ventricular systolic function. Patient hemodynamically stable. 7. Fluids, electrolytes, and nutrition. Pured carbohydrate controlled diet. 8. DVT prophylaxis. Subcutaneous Lovenox. 9. Gastrointestinal prophylaxis. Histamine 2 receptor blockers. 10. Plan. Continue close monitoring. Continue diuresis. Continue steroid taper. Obtain physical therapy evaluation. Obtain hematology evaluation because of persistently and significantly elevated WBC. Case discussed with Dr. Kim. Problems: Subjective 24 Hr Interval Summary Free Text/Dictation Feeling "so-so." Exam/Review of Systems Vital Signs Vitals Vital Signs Date Time Temp Pulse Resp B/P Pulse Ox O2 Delivery O2 Flow Rate FiO2 11/05/16 14:46 90 6.0 11/05/16 14:46 84 24 Nasal Cannula 11/05/16 12:16 98.0 100/51 11/03/16 01:35 100 Intake and Output 11/04/16 11/04/16 11/05/16 15:00 23:00 07:00 Intake Total 1800 ml 200 ml Output Total 1300 ml 600 ml Balance 500 ml -400 ml Exam General: Adequately build 81 year-old female lying in bed in moderate respiratory distress. HEENT: Normocephalic, atraumatic. Eyes: Anicteric sclerae, conjunctivae clear. ENT: Nasal septum midline, oral mucosa moist. Neck supple. JVD noticed. Respiratory: Bilaterally diminished breath sounds. Use of accessory muscles of respiration. Bilateral rales. Cardiovascular: S1, S2 heard. No murmurs or gallops. Abdomen: Soft, nontender, and nondistended. Bowel sounds positive in all 4 quadrants. Genitourinary: Deferred. Extremities: No cyanosis, no edema. Peripheral pulses palpable. Neurologic: Cranial nerves II through XII grossly intact. The patient is awake, alert, and oriented. Skin: Normal skin turgor. No skin rashes. Results Result Diagram: 11/05/16 0735 11/05/16 0735 Results 24 hrs Laboratory Tests Test 11/04/16 16:47 11/04/16 21:04 11/05/16 07:35 11/05/16 07:52 Bedside Glucose 134 163 249 H White Blood Count 47.2 #H Red Blood Count 5.28 Hemoglobin 14.6 Hematocrit 45.1 Mean Corpuscular Volume 85.4 Mean Corpuscular Hemoglobin 27.7 L Mean Corpuscular Hemoglobin Concent 32.4 Red Cell Distribution Width 14.3 Platelet Count 287 Mean Platelet Volume 9.2 Neutrophils % Segmented Neutrophils % (Manual) 57 Band Neutrophils % (Manual) 3 Lymphocytes % Lymphocytes % (Manual) 14 L Monocytes % Monocytes % (Manual) 26 H Eosinophils % Basophils % Nucleated Red Blood Cells % 0.0 Neutrophils # (Manual) 27.6 H Band Neutrophils # 1.4 H Absolute Lymphocytes (Manual) 6.6 H Lymphocytes # Monocytes # Absolute Monocytes (Manual) 12.2 H Eosinophils # Basophils # Nucleated Red Blood Cells # Platelet Estimate NORMAL Polychromasia 1+ Hypochromasia 2+ Sodium Level 136 Potassium Level 3.1 L Chloride Level 95 L Carbon Dioxide Level 34 H Anion Gap 10 Blood Urea Nitrogen 37 H Creatinine 0.71 Glucose Level 262 H Calcium Level 7.8 L Magnesium Level 2.5 Total Bilirubin 1.7 H Direct Bilirubin 0.00 Indirect Bilirubin 1.7 H Aspartate Amino Transf (AST/SGOT) 21 Alanine Aminotransferase (ALT/SGPT) 37 Alkaline Phosphatase 60 Total Protein 5.1 L Albumin 2.6 L Globulin 2.50 Albumin/Globulin Ratio 1.04 Test 11/05/16 11:53 Bedside Glucose 275 H Medications Medications Current Medications Acetaminophen (Tylenol Tab) 650 mg Q6H PRN PO PAIN LEVEL 1-3 OR FEVER; Start at 11:00 Acetaminophen/ Hydrocodone Bitart ([place] (5/325)) 1 tab Q6H PRN PO PAIN LEVEL 4 -6 Last administered on 11/05/16 09:36; Admin Dose 1 TAB; Start 10/23/16 at 11: 00 Docusate Sodium (Colace) 100 mg Q12H PRN PO CONSTIPATION; Start 10/23/16 at 11: 00 Magnesium Hydroxide (Milk Of Mag) 30 ml DAILY PRN PO CONSTIPATION; Start at 11:00 Bisacodyl (Dulcolax) 5 mg DAILY PRN PO CONSTIPATION; Start 10/23/16 at 11:00 Bisacodyl (Dulcolax Supp) 10 mg DAILY PRN [place] CONSTIPATION; Start 10/23/16 at 11 :00 Enoxaparin Sodium (Lovenox) 40 mg DAILY SC Last administered on 11/05/16 09:13 ; Admin Dose 40 MG; Start 10/24/16 at 09:00 Aspirin (Halfprin) 81 mg DAILY PO Last administered on 11/05/16 09:07; Admin Dose 81 MG; Start 10/24/16 at 09:00 Losartan Potassium (Cozaar) 50 mg DAILY PO Last administered on 11/05/16 09:07 ; Admin Dose 50 MG; Start 10/24/16 at 09:00 Montelukast Sodium (Singulair) 10 mg QHS PO Last administered on 11/04/16 21:30 ; Admin Dose 10 MG; Start 10/23/16 at 21:00 Salmeterol Xinafoate/ Fluticasone (Advair 500/50 Diskus) 1 inh BID INH Last administered on 11/05/16 09:06; Admin Dose 1 INH; Start 10/23/16 at 21:00 Tiotropium [place] (Spiriva) 1 inh DAILY INH Last administered on 11/05/16 09: 06; Admin Dose 1 INH; Start 10/24/16 at 09:00 Atorvastatin Calcium (Lipitor) 10 mg DAILY@21 PO Last administered on 11/04/16 21:05; Admin Dose 10 MG; Start 10/23/16 at 21:00 Diagnostic Test (Pha) (Accu-Chek) 1 ea 02 XX Last administered on 10/31/16 02: 21; Admin Dose 1 EA; Start 10/24/16 at 02:00 Miscellaneous Information 1 ea NOTE XX ; Start 10/23/16 at 18:30 Glucose (Glutose) 15 gm Q15M PRN PO DECREASED GLUCOSE; Start 10/23/16 at 18:30 Glucose (Glutose) 22.5 gm Q15M PRN PO DECREASED GLUCOSE; Start 10/23/16 at 18: 30 Dextrose (D50w Syringe) 25 ml Q15M PRN IV DECREASED GLUCOSE; Start 10/23/16 at 18:30 Dextrose (D50w Syringe) 50 ml Q15M PRN IV DECREASED GLUCOSE; Start 10/23/16 at 18:30 Glucagon (Glucagen) 1 mg Q15M PRN IM DECREASED GLUCOSE; Start 10/23/16 at 18:30 Glucose (Glutose) 15 gm Q15M PRN BUCCAL DECREASED GLUCOSE; Start 10/23/16 at 18 :30 Hydralazine HCl (Apresoline) 10 mg Q6H PRN IV ELEVATED BLOOD PRESSURE Last administered on 10/26/16 11:11; Admin Dose 10 MG; Start 10/24/16 at 14:00 Amlodipine Besylate (Norvasc) 5 mg BID PO Last administered on 11/05/16 09:07; Admin Dose 5 MG; Start 10/26/16 at 17:00 Diagnostic Test (Pha) (Accu-Chek) 1 ea 02 XX Last administered on 10/31/16 02: 21; Admin Dose 1 EA; Start 10/31/16 at 02:00 Furosemide (Lasix) 40 mg DAILY IV Last administered on 11/05/16 09:06; Admin Dose 40 MG; Start 10/30/16 at 13:30 Famotidine (Pepcid) 20 mg BID PO Last administered on 11/05/16 09:07; Admin Dose 20 MG; Start 10/31/16 at 21:00 Diltiazem HCl (Cardizem Iv) 10 mg Q4H PRN IV hr>120; Start 11/01/16 at 22:15 Insulin Glargine 20 unit 20 unit DAILY@08 SC Last administered on 11/05/16 08: 13; Admin Dose 20 UNIT; Start 11/03/16 at 08:00 Piperacillin Sod/ Tazobactam Sod 50 ml @ 100 mls/hr Q8 IVPB Last administered on 11/05/16 14:05; Admin Dose 100 MLS/HR; Start 11/03/16 at 14:00 Vancomycin HCl/ Sodium Chloride (Vancocin/NS) 250 ml @ 83.333 mls/ hr Q24H IVPB Last administered on 11/05/16 14:47; Admin Dose 83.333 MLS/HR; Start at 14:00 Methylprednisolone Sodium Succinate (Solu-Medrol) 40 mg Q8 IV Last administered on 11/05/16 14:05; Admin Dose 40 MG; Start 11/05/16 at 14:00 Miscellaneous Information (*Rx Drug Level Order Reminder*) VANCOMYCIN TROUGH AT 1300 ONCE ONCE XX ; Start 11/06/16 at 13:00; Stop 11/06/16 at 13:01 RAYMOND LARIOS NP Nov 05, 2016 15:56
[2016-11-05] MEDS ORDERED: POTASSIUM CHLORIDE (SR) 20 MEQ TAB PO STA (17:07)
--- NOTE | 2016-11-05 17:59 | PN ---
DATE: 11/05/2016 SUBJECTIVE DATA: No acute changes overnight. The patient is alert, eating lunch. Looks comfortable. No fevers. Temperature 98, pulse 90, respirations 18, blood pressure 100/51, saturation 98 percent on 6 L. WBC 47.2, platelets 287, no shifts, no bands. BUN 37, creatinine 0.71. MICROBIOLOGY: Blood cultures repeated on November 03 and urine culture negative. INDWELLING: [place] catheter. ANTIMICROBIALS: 1. The patient is on vancomycin. 2. Zosyn. 3. She is also getting Solu-Medrol 40 mg q.8 hours. PHYSICAL EXAMINATION: GENERAL: This is an obese, well developed, elderly woman, who is awake, in no distress. HEENT: Head atraumatic, normocephalic. Sclerae anicteric. Buccal mucosa dry. NECK: Supple. CHEST: Rise symmetrical. Breath sounds diminished at the bases with prolonged expiratory phase. HEART: S1, S2. ABDOMEN: Soft, bowel sounds present. EXTREMITIES: Without cyanosis. ASSESSMENT: 1. Ongoing leukocytosis, questionable leukemoid reaction, patient does not appear toxic or septic, she remains on steroids that are tapering down. 2. Questionable aspiration pneumonia. 3. Acute hypoxemic respiratory failure secondary to acute bronchitis and asthma exacerbation. 4. Diabetes. 5. Hypertension. PLAN: The patient remains clinically and hemodynamically stable. We are going to discontinue vancomycin. Keep her on Zosyn for now. Check procalcitonin level. Follow chest x-ray. Await for hematology evaluation. Dictated By: Donald Patiño NP /dmitry/claudio /Document#: [id number]
[2016-11-05] MEDS ORDERED: SOD CHLORIDE 0.9% 500 ML IV ONE (20:00)
[2016-11-05] MEDS: ATORVASTATIN 10 MG TAB PO SCH (20:02)
[2016-11-05] MEDS: MONTELUKAST 10 MG TAB PO SCH (20:02)
[2016-11-05] MEDS ORDERED: PENDING SANTYL ORDER FOR WOUND CARE XX PRN (22:00)
[2016-11-06] VITALS (48 sets, daily range): BP systolic 55–137; BP diastolic 16–83; PULSE 56–167; RESP 14–35
[2016-11-06] MEDS: LEVALBUTEROL (NEB) 0.63 MG/3 ML AMP HHN SCH ×5 (00:31→18:00)
[2016-11-06] MEDS: ACCU-CHEK XX SCH ×2 (02:00)
[2016-11-06] MEDS: METHYLPREDNISOLONE 40 MG INJ IV SCH ×3 (05:40→21:34)
[2016-11-06] MEDS: PIPER-TAZO 2.25 GM (PMX) 50 ML IVPB SCH (05:41)
[2016-11-06 07:44] LABS: ABNORMAL IP MESSAGE 1; HEMATOCRIT 52.8 % (37.0-47.0); MEAN CORPUSCULAR HEMOGLOBIN 27.6 pg (29.0-33.0); MEAN CORPUSCULAR HGB CONC 32.2 g/dl (32.0-37.0); MEAN CORPUSCULAR VOLUME 85.6 fl (82.0-101.0); MEAN PLATELET VOLUME 9.8 fl (7.4-10.4); NUCLEATED RED BLOOD CELLS% 0.1 /100WBC (0.0-0.0); PLATELET COUNT 198 10^3/UL (140-415); RED BLOOD COUNT 6.17 10^6/ul (4.20-5.40); RED CELL DISTRIBUTION WIDTH 15.9 % (11.5-14.5); WHITE BLOOD COUNT 53.1 10^3/ul (4.8-10.8)
[2016-11-06] MEDS: INSULIN ASPART [NOVOLOG] 3 ML PEN SC SCH ×6 (08:06→17:21)
[2016-11-06] MEDS: INSULIN GLARGINE [LANtus] 3 ML PEN SC SCH (08:07)
[2016-11-06 08:11] LABS: ALBUMIN 2.2 g/dl (3.3-4.9); ALBUMIN/GLOBULIN RATIO 0.95; CALCIUM 7.2 mg/dl (8.4-10.2); CREATININE 1.94 mg/dl (0.44-1.00); POTASSIUM 4.1 mmol/L (3.5-5.1); TOTAL PROTEIN 4.5 g/dl (6.1-8.1)
[2016-11-06] MEDS: BUDESONIDE (NEB) 0.5MG/2ML AMP HHN SCH ×2 (08:18→20:52)
[2016-11-06] MEDS: FUROSEMIDE 40 MG INJ IV SCH (09:21)
[2016-11-06] MEDS: TIOTROPIUM 18 MCG CAPSULE INHA DEV INH SCH (09:22)
[2016-11-06] MEDS: FAMOTIDINE 20 MG TAB PO SCH ×2 (09:22→21:22)
[2016-11-06] MEDS: AMLODIPINE 5 MG TAB PO SCH ×2 (09:22→20:35)
[2016-11-06] MEDS: LOSARTAN 50 MG TAB PO SCH (09:22)
[2016-11-06] MEDS: SALMETEROL/FLUTICASONE 500/50 INHA INH SCH ×2 (09:22→21:00)
[2016-11-06] MEDS: ASPIRIN (EC) 81 MG TAB PO SCH (09:22)
[2016-11-06] MEDS: metFORMIN 500 MG TAB PO SCH ×2 (09:24→17:20)
[2016-11-06] MEDS: ENOXAPARIN 40 MG/0.4 ML SYG SC SCH (09:25)
[2016-11-06 10:04] LABS: AADO2 Arterial 334.9 mmHg (7.0-24.0); Allen Test ACCEPTAB; Arterial Base Excess -7.1 mmol/L (-3.0-3); Arterial COHb 0.2 % (0.0-3.0); Arterial Fraction of Oxyhgb 93.2 % (93.0-99.0); Arterial HCO3 15.1 mmol/L (22.0-26.0); Arterial MetHb 0.5 % (0.0-1.5); Arterial Total Hemglobin 19.4 g/dl (12.0-18.0); MODE MASK - SIMPLE
[2016-11-06 10:29] LABS: LYMPHOCYTES # 1.1 10^3/ul (0.8-2.9); METAMYELOCYTES %M 1 % (0-0); MONOCYTE # 2.1 10^3/ul (0.3-0.9); MONOCYTES % (M) 4 % (0-11); MYELOCYTES % (M) 1 % (0-0)
--- NOTE | 2016-11-06 10:59 | PN ---
Date/Time of Note Date/Time of Note DATE: 11/06/16 TIME: 10:53 Assessment/Plan VTE Prophylaxis VTE Prophylaxis Intervention: heparin Lines/Catheters IV [facility] Type [facility]from [facility] Saline [facility] Urinary Cath still in place: Yes Reason Cath still needed: other (indicate) Assessment/Plan Chief Complaint/Hosp Course 1. Acute hypoxic respiratory failure. CTA negative for any pulmonary embolism. Most probably secondary to underlying asthma exacerbation. Continue inhaled bronchodilators, tapering dose of steroids, and inhaled steroids. Being followed by pulmonology. Patient was moved to intensive care unit the second time on 11/06/2016 because of worsening respiratory distress 2. Probable infectious or inflammatory process throughout both lung carlos with peribronchial thickening and peribronchial and septal nodularity with some more discrete nodular opacities. Possible underlying aspiration as per CT scan findings. Status post speech therapy evaluation. To be continued on a pured diet. 3. Leukocytosis. May be multifactorial from underlying steroid use and infectious process. On antibiotics as per infectious diseases. Hematology has been consulted because of worsening leukocytosis that is unexplained. 4. Urinary tract infection. Continue antimicrobials. No evidence of any septic shock. Repeat urine cultures negative. 5. Type 2 diabetes mellitus. Hemoglobin A1c 6.2. Continue sliding scale insulin. 6. Hyperdynamic left ventricular systolic function. Patient hemodynamically stable. 7. Acute kidney injury. Etiology unclear. Use nephrotoxic drugs with caution. The patient on vancomycin. Obtain nephrology consult. 8. Fluids, electrolytes, and nutrition. Pured carbohydrate controlled diet if the patient can tolerate. 8. DVT prophylaxis. Subcutaneous Lovenox. Will switch this to heparin because of worsening renal function. 9. Gastrointestinal prophylaxis. Histamine 2 receptor blockers. 10. Plan. Continue close monitoring. Continue diuresis. Continue steroid taper. Continue noninvasive positive pressure ventilation. Obtain nephrology consult. Case discussed with Dr. Kim. Problems: Subjective 24 Hr Interval Summary Free Text/Dictation The patient was transferred to intensive care unit today because of worsening respiratory distress. The patient was started on BiPAP therapy. Exam/Review of Systems Vital Signs Vitals Vital Signs Date Time Temp Pulse Resp B/P Pulse Ox O2 Delivery O2 Flow Rate FiO2 11/06/16 10:30 82/42 92 BIPAP 11/06/16 10:15 97.6 110 10.0 11/06/16 08:18 24 11/03/16 01:35 100 Intake and Output 11/05/16 11/05/16 11/06/16 14:59 22:59 06:59 Intake Total 715 ml 350 ml Output Total 1300 ml 550 ml Balance -585 ml -200 ml Exam General: Adequately build 81 year-old female lying in bed in moderate to severe respiratory distress. HEENT: Normocephalic, atraumatic. Eyes: Anicteric sclerae, conjunctivae clear. ENT: Nasal septum midline, oral mucosa moist. Neck supple. JVD noticed. Respiratory: Bilaterally diminished breath sounds. Use of accessory muscles of respiration. Bilateral rales. Cardiovascular: S1, S2 heard. No murmurs or gallops. Abdomen: Soft, nontender, and nondistended. Bowel sounds positive in all 4 quadrants. Genitourinary: Deferred. Extremities: No cyanosis, no edema. Peripheral pulses palpable. Neurologic: The patient is awake and alert.. Skin: Normal skin turgor. No skin rashes. Results Result Diagram: 11/06/16 0654 11/06/16 0654 Results 24 hrs Laboratory Tests Test 11/05/16 11:53 11/05/16 17:33 11/05/16 19:56 11/06/16 06:54 Bedside Glucose 275 H 116 96 White Blood Count 53.1 H Red Blood Count 6.17 H Hemoglobin 17.0 H Hematocrit 52.8 H Mean Corpuscular Volume 85.6 Mean Corpuscular Hemoglobin 27.6 L Mean Corpuscular Hemoglobin Concent 32.2 Red Cell Distribution Width 15.9 H Platelet Count 198 # Mean Platelet Volume 9.8 Neutrophils % Segmented Neutrophils % (Manual) 71 Band Neutrophils % (Manual) 21 H Lymphocytes % Lymphocytes % (Manual) 2 L Monocytes % Monocytes % (Manual) 4 Eosinophils % Basophils % Metamyelocytes % (manual) 1 H Myelocytes % (Manual) 1 H Nucleated Red Blood Cells % 0.1 H Neutrophils # (Manual) 43.6 H Band Neutrophils # 11.1 H Absolute Lymphocytes (Manual) Pending Lymphocytes # 1.1 Monocytes # 2.1 H Absolute Monocytes (Manual) Pending Eosinophils # Basophils # Metamyelocytes # 0.5 H Myelocytes # 0.5 H Nucleated Red Blood Cells # Sodium Level 135 Potassium Level 4.1 Chloride Level 101 Carbon Dioxide Level 24 # Anion Gap 14 Blood Urea Nitrogen 71 #H Creatinine 1.94 #H Glucose Level 225 H Calcium Level 7.2 L Phosphorus Level 7.1 H Magnesium Level 2.6 H Total Bilirubin 1.0 Direct Bilirubin 0.00 Indirect Bilirubin 1.0 Aspartate Amino Transf (AST/SGOT) 30 Alanine Aminotransferase (ALT/SGPT) 33 Alkaline Phosphatase 64 Total Protein 4.5 L Albumin 2.2 L Globulin 2.30 Albumin/Globulin Ratio 0.95 Test 11/06/16 08:00 11/06/16 09:42 11/06/16 09:52 Bedside Glucose 186 240 H Blood Gas Specimen Source Blood arterial Arterial Blood Date Drawn 11/06/2016 9:57:48 AM Arterial Blood pH (Temp corrected) 7.398 Arterial Blood pCO2 (Temp correct) 25.0 L Arterial Blood pO2 (Temp corrected) 72.6 L Arterial Blood HCO3 15.1 L Arterial Blood Base Excess -7.1 L Arterial Blood Oxygen Saturation 93.9 L Celestine Test ACCEPTAB Arterial Blood Gas Puncture Site Right Radial Arterial Blood Carboxyhemoglobin 0.2 Arterial Blood Methemoglobin 0.5 Blood Gas A-a O2 Differential 334.9 H Oxyhemoglobin Percent 93.2 Total Hemoglobin 19.4 H Blood Gas Temperature 37.0 Blood Gas Modality MASK - SIMPLE FiO2 61.0 Blood Gas Notified Whom [place] Blood Gas Notified Time 11/06/2016 10:03:03 AM Medications Medications Current Medications Acetaminophen (Tylenol Tab) 650 mg Q6H PRN PO PAIN LEVEL 1-3 OR FEVER; Start at 11:00 Acetaminophen/ Hydrocodone Bitart ([place] (5/325)) 1 tab Q6H PRN PO PAIN LEVEL 4 -6 Last administered on 11/05/16 09:36; Admin Dose 1 TAB; Start 10/23/16 at 11: 00 Docusate Sodium (Colace) 100 mg Q12H PRN PO CONSTIPATION; Start 10/23/16 at 11: 00 Magnesium Hydroxide (Milk Of Mag) 30 ml DAILY PRN PO CONSTIPATION; Start at 11:00 Bisacodyl (Dulcolax) 5 mg DAILY PRN PO CONSTIPATION; Start 10/23/16 at 11:00 Bisacodyl (Dulcolax Supp) 10 mg DAILY PRN [place] CONSTIPATION; Start 10/23/16 at 11 :00 Enoxaparin Sodium (Lovenox) 40 mg DAILY SC Last administered on 11/06/16 09:25 ; Admin Dose 40 MG; Start 10/24/16 at 09:00 Aspirin (Halfprin) 81 mg DAILY PO Last administered on 11/06/16 09:22; Admin Dose 81 MG; Start 10/24/16 at 09:00 Losartan Potassium (Cozaar) 50 mg DAILY PO Last administered on 11/06/16 09:22 ; Admin Dose 50 MG; Start 10/24/16 at 09:00 Montelukast Sodium (Singulair) 10 mg QHS PO Last administered on 11/05/16 20:02 ; Admin Dose 10 MG; Start 10/23/16 at 21:00 Salmeterol Xinafoate/ Fluticasone (Advair 500/50 Diskus) 1 inh BID INH Last administered on 11/06/16 09:22; Admin Dose 1 INH; Start 10/23/16 at 21:00 Tiotropium [place] (Spiriva) 1 inh DAILY INH Last administered on 11/06/16 09: 22; Admin Dose 1 INH; Start 10/24/16 at 09:00 Atorvastatin Calcium (Lipitor) 10 mg DAILY@21 PO Last administered on 11/05/16 20:02; Admin Dose 10 MG; Start 10/23/16 at 21:00 Diagnostic Test (Pha) (Accu-Chek) 1 ea 02 XX Last administered on 10/31/16 02: 21; Admin Dose 1 EA; Start 10/24/16 at 02:00 Miscellaneous Information 1 ea NOTE XX ; Start 10/23/16 at 18:30 Glucose (Glutose) 15 gm Q15M PRN PO DECREASED GLUCOSE; Start 10/23/16 at 18:30 Glucose (Glutose) 22.5 gm Q15M PRN PO DECREASED GLUCOSE; Start 10/23/16 at 18: 30 Dextrose (D50w Syringe) 25 ml Q15M PRN IV DECREASED GLUCOSE; Start 10/23/16 at 18:30 Dextrose (D50w Syringe) 50 ml Q15M PRN IV DECREASED GLUCOSE; Start 10/23/16 at 18:30 Glucagon (Glucagen) 1 mg Q15M PRN IM DECREASED GLUCOSE; Start 10/23/16 at 18:30 Glucose (Glutose) 15 gm Q15M PRN BUCCAL DECREASED GLUCOSE; Start 10/23/16 at 18 :30 Hydralazine HCl (Apresoline) 10 mg Q6H PRN IV ELEVATED BLOOD PRESSURE Last administered on 10/26/16 11:11; Admin Dose 10 MG; Start 10/24/16 at 14:00 Amlodipine Besylate (Norvasc) 5 mg BID PO Last administered on 11/06/16 09:22 ; Admin Dose 5 MG; Start 10/26/16 at 17:00 Diagnostic Test (Pha) (Accu-Chek) 1 ea 02 XX Last administered on 10/31/16 02: 21; Admin Dose 1 EA; Start 10/31/16 at 02:00 Furosemide (Lasix) 40 mg DAILY IV Last administered on 11/06/16 09:21; Admin Dose 40 MG; Start 10/30/16 at 13:30 Famotidine (Pepcid) 20 mg BID PO Last administered on 11/06/16 09:22; Admin Dose 20 MG; Start 10/31/16 at 21:00 Diltiazem HCl (Cardizem Iv) 10 mg Q4H PRN IV hr>120; Start 11/01/16 at 22:15 Insulin Glargine 20 unit 20 unit DAILY@08 SC Last administered on 11/06/16 08: 07; Admin Dose 20 UNIT; Start 11/03/16 at 08:00 Piperacillin Sod/ Tazobactam Sod (Zosyn 2.25gm/ 50ml (Pmx)) 50 ml @ 100 mls/hr Q8 IVPB Last administered on 11/06/16 05:41; Admin Dose 100 MLS/HR; Start 11/03 at 14:00 Methylprednisolone Sodium Succinate (Solu-Medrol) 40 mg Q8 IV Last administered on 11/06/16 05:40; Admin Dose 40 MG; Start 11/05/16 at 14:00 [facility] This patient rae... PRN PRN XX WOUND CARE; Start 11/05/16 at 22:00 RAYMOND LARIOS NP Nov 06, 2016 10:59
[2016-11-06] MEDS ORDERED: LIDOCAINE 1% (MPF) 5 ML VIAL SC ONE (11:30)
[2016-11-06] MEDS ORDERED: SOD CHLORIDE 0.9% 500 ML IV ONE ×2 (11:30→16:30)
--- NOTE | 2016-11-06 12:26 | RADRPT ---
PROCEDURE: XR Chest. CLINICAL INDICATION: Shortness of breath . TECHNIQUE: Single frontal chest x-ray. COMPARISON: 11/04/2016 FINDINGS: The lungs are clear of acute infiltrates, edema, effusions, or masses. There is bibasilar atelectasi s. Calcific atherosclerosis of the aorta is present. Prominent interstitial markings are present lik isabela chronic or senescent in nature.. The cardiomediastinal silhouette is unremarkable. The osseous structures are intact. IMPRESSION: No acute cardiopulmonary disease. Bibasilar atelectasis. Senescent changes of the chest. RPTAT: HJPL .Cruz Maciel MD, MD Date Time Electronically viewed and signed by .Cruz Maciel MD, MD on 11/06/2016 12:25 .L/
--- NOTE | 2016-11-06 13:49 | CONS ---
Date/Time of Note Date/Time of Note DATE: 11/06/16 TIME: 13:26 Assessment/Plan Assessment/Plan Chief Complaint/Hosp Course #leukocytosis -given the rising WBC count while on steroids, this is most likely a leukemoid reaction. Her respiratory sx are worsening as the WBC count is rising making it more likely that the increasing WBC count is reactive in nature -will review peripheral smear -if there is evidence of malignant or dysplastic cells, will perform studies such as flow cytometry and perform bone marrow bx #Severe respiratory distress 2/2 bronchospasm -continue antibiotics -continue Steroids -pt on BIPAP -management per pulmonary # Urinary tract infection. -this is unlikely contributing cause to leukocytosis -Continue antimicrobials. -Repeat urine cultures negative. 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 Pt elicits history of asthma. Since admission pt has been treated for acute bronchitis and bronchospasm. Pt is currently on high dose steroids with solumedrol 40mg TID as well as broad spectrum antibiotics, Zosyn. Vancomycin was discontinued as patient did not appear infected. CT chest was done which demonstrates probable infectious or inflammatory process throughout both lung carlos with peribronchial thickening and peribronchial and septal nodularity with some more discrete nodular opacities. Bronchiolitis or other infectious or inflammatory process is suspected. This morning patient was moved to ICU for worsening respiratory distress. On admission on 10/23 her WBC count was 9 but during her hospitalization it has increased despite lack of evidence for worsening infection per primary team. her WBC count was up to 53. We have thus been consulted to rule out an underlying hematologic process as a cause for the worsening anemia. Psychological: nl mood/affect Past Medical History Includes hypertension hyperlipidemia. COPD Past Surgical History Past Surgical Hx: no surgical history Family History Significant Family History: no pertinent family hx Social History Alcohol Use: none Smoking Status: Former smoker Drug Use: none Exam/Review of Systems Vital Signs Vitals Vital Signs Date Time Temp Pulse Resp B/P Pulse Ox O2 Delivery O2 Flow Rate FiO2 11/06/16 12:00 97.9 115 28 93/53 93 BIPAP 11/06/16 11:30 40 11/06/16 10:15 10.0 Intake and Output 11/05/16 11/05/16 11/06/16 15:00 23:00 07:00 Intake Total 715 ml 350 ml Output Total 1300 ml 550 ml Balance -585 ml -200 ml Exam Constitutional: alert, distress, oriented Psych: no complaints Head: normocephalic Eyes: nl conjunctiva ENMT: nl external ears & nose Neck: supple Respiratory: crackles/rales, diminished breath sounds, intercostal retraction, labored breathing Cardiovascular: other (tachycardic) Gastrointestinal: soft Musculoskeletal: nl extremities to inspection Extremities: normal pulses Neurological: [employer]IST II-XII intact Skin: nl turgor Results Result Diagram: 11/06/16 0654 11/06/16 0654 Results 24 hrs Laboratory Tests Test 11/05/16 17:33 11/05/16 19:56 11/06/16 06:54 11/06/16 08:00 Bedside Glucose 116 96 186 White Blood Count 53.1 H Red Blood Count 6.17 H Hemoglobin 17.0 H Hematocrit 52.8 H Mean Corpuscular Volume 85.6 Mean Corpuscular Hemoglobin 27.6 L Mean Corpuscular Hemoglobin Concent 32.2 Red Cell Distribution Width 15.9 H Platelet Count 198 # Mean Platelet Volume 9.8 Neutrophils % Segmented Neutrophils % (Manual) 71 Band Neutrophils % (Manual) 21 H Lymphocytes % Lymphocytes % (Manual) 2 L Monocytes % Monocytes % (Manual) 4 Eosinophils % Basophils % Metamyelocytes % (manual) 1 H Myelocytes % (Manual) 1 H Nucleated Red Blood Cells % 0.1 H Neutrophils # (Manual) 43.6 H Band Neutrophils # 11.1 H Absolute Lymphocytes (Manual) 1.0 Lymphocytes # 1.1 Monocytes # 2.1 H Absolute Monocytes (Manual) 2.1 H Eosinophils # Basophils # Metamyelocytes # 0.5 H Myelocytes # 0.5 H Nucleated Red Blood Cells # Sodium Level 135 Potassium Level 4.1 Chloride Level 101 Carbon Dioxide Level 24 # Anion Gap 14 Blood Urea Nitrogen 71 #H Creatinine 1.94 #H Glucose Level 225 H Calcium Level 7.2 L Phosphorus Level 7.1 H Magnesium Level 2.6 H Total Bilirubin 1.0 Direct Bilirubin 0.00 Indirect Bilirubin 1.0 Aspartate Amino Transf (AST/SGOT) 30 Alanine Aminotransferase (ALT/SGPT) 33 Alkaline Phosphatase 64 Total Protein 4.5 L Albumin 2.2 L Globulin 2.30 Albumin/Globulin Ratio 0.95 Test 11/06/16 09:42 11/06/16 09:52 11/06/16 11:54 Blood Gas Specimen Source Blood arterial Arterial Blood Date Drawn 11/06/2016 9:57:48 AM Arterial Blood pH (Temp corrected) 7.398 Arterial Blood pCO2 (Temp correct) 25.0 L Arterial Blood pO2 (Temp corrected) 72.6 L Arterial Blood HCO3 15.1 L Arterial Blood Base Excess -7.1 L Arterial Blood Oxygen Saturation 93.9 L Celestine Test ACCEPTAB Arterial Blood Gas Puncture Site Right Radial Arterial Blood Carboxyhemoglobin 0.2 Arterial Blood Methemoglobin 0.5 Blood Gas A-a O2 Differential 334.9 H Oxyhemoglobin Percent 93.2 Total Hemoglobin 19.4 H Blood Gas Temperature 37.0 Blood Gas Modality MASK - SIMPLE FiO2 61.0 Blood Gas Notified Whom [place] Blood Gas Notified Time 11/06/2016 10:03:03 AM Bedside Glucose 240 H 229 H Medications Medications Current Medications Acetaminophen (Tylenol Tab) 650 mg Q6H PRN PO PAIN LEVEL 1-3 OR FEVER; Start at 11:00 Acetaminophen/ Hydrocodone Bitart ([place] (5/325)) 1 tab Q6H PRN PO PAIN LEVEL 4 -6 Last administered on 11/05/16 09:36; Admin Dose 1 TAB; Start 10/23/16 at 11: 00 Docusate Sodium (Colace) 100 mg Q12H PRN PO CONSTIPATION; Start 10/23/16 at 11: 00 Magnesium Hydroxide (Milk Of Mag) 30 ml DAILY PRN PO CONSTIPATION; Start at 11:00 Bisacodyl (Dulcolax) 5 mg DAILY PRN PO CONSTIPATION; Start 10/23/16 at 11:00 Bisacodyl (Dulcolax Supp) 10 mg DAILY PRN [place] CONSTIPATION; Start 10/23/16 at 11 :00 Aspirin (Halfprin) 81 mg DAILY PO Last administered on 11/06/16 09:22; Admin Dose 81 MG; Start 10/24/16 at 09:00 Montelukast Sodium (Singulair) 10 mg QHS PO Last administered on 11/05/16 20:02 ; Admin Dose 10 MG; Start 10/23/16 at 21:00 Salmeterol Xinafoate/ Fluticasone (Advair 500/50 Diskus) 1 inh BID INH Last administered on 11/06/16 09:22; Admin Dose 1 INH; Start 10/23/16 at 21:00 Tiotropium [place] (Spiriva) 1 inh DAILY INH Last administered on 11/06/16 09: 22; Admin Dose 1 INH; Start 10/24/16 at 09:00 Atorvastatin Calcium (Lipitor) 10 mg DAILY@21 PO Last administered on 11/05/16 20:02; Admin Dose 10 MG; Start 10/23/16 at 21:00 Diagnostic Test (Pha) (Accu-Chek) 1 ea 02 XX Last administered on 10/31/16 02: 21; Admin Dose 1 EA; Start 10/24/16 at 02:00 Miscellaneous Information 1 ea NOTE XX ; Start 10/23/16 at 18:30 Glucose (Glutose) 15 gm Q15M PRN PO DECREASED GLUCOSE; Start 10/23/16 at 18:30 Glucose (Glutose) 22.5 gm Q15M PRN PO DECREASED GLUCOSE; Start 10/23/16 at 18: 30 Dextrose (D50w Syringe) 25 ml Q15M PRN IV DECREASED GLUCOSE; Start 10/23/16 at 18:30 Dextrose (D50w Syringe) 50 ml Q15M PRN IV DECREASED GLUCOSE; Start 10/23/16 at 18:30 Glucagon (Glucagen) 1 mg Q15M PRN IM DECREASED GLUCOSE; Start 10/23/16 at 18:30 Glucose (Glutose) 15 gm Q15M PRN BUCCAL DECREASED GLUCOSE; Start 10/23/16 at 18 :30 Hydralazine HCl (Apresoline) 10 mg Q6H PRN IV ELEVATED BLOOD PRESSURE Last administered on 10/26/16 11:11; Admin Dose 10 MG; Start 10/24/16 at 14:00 Amlodipine Besylate (Norvasc) 5 mg BID PO Last administered on 11/06/16 09:22 ; Admin Dose 5 MG; Start 10/26/16 at 17:00 Diagnostic Test (Pha) (Accu-Chek) 1 ea 02 XX Last administered on 10/31/16 02: 21; Admin Dose 1 EA; Start 10/31/16 at 02:00 Famotidine (Pepcid) 20 mg BID PO Last administered on 11/06/16 09:22; Admin Dose 20 MG; Start 10/31/16 at 21:00 Diltiazem HCl (Cardizem Iv) 10 mg Q4H PRN IV hr>120; Start 11/01/16 at 22:15 Insulin Glargine 20 unit 20 unit DAILY@08 SC Last administered on 11/06/16 08: 07; Admin Dose 20 UNIT; Start 11/03/16 at 08:00 Piperacillin Sod/ Tazobactam Sod (Zosyn 2.25gm/ 50ml (Pmx)) 50 ml @ 100 mls/hr Q8 IVPB Last administered on 11/06/16 05:41; Admin Dose 100 MLS/HR; Start 11/03 at 14:00 Methylprednisolone Sodium Succinate (Solu-Medrol) 40 mg Q8 IV Last administered on 11/06/16 05:40; Admin Dose 40 MG; Start 11/05/16 at 14:00 Miscellaneous Information (Pending [facility] Order For Wound Care) This patient rae... PRN PRN XX WOUND CARE; Start 11/05/16 at 22:00 Heparin Sodium (Porcine) (Heparin (5000 Units/0.5 ml)) 5,000 unit BID SC ; Start 11/06/16 at 21:00 LEXI HUDDLESTON M.D. Nov 06, 2016 13:36
[2016-11-06] MEDS: metroNIDAZOLE 500 MG/NS (PMX) 100 ML IVPB SCH ×2 (14:03→22:20)
--- NOTE | 2016-11-06 14:51 | PN ---
DATE: 11/06/2016 SUBJECTIVE DATA: The patient was transferred to ICU secondary to acute respiratory distress. Currently on BiPAP, restless, in no distress. Family at bedside. No fevers overnight. OBJECTIVE DATA: Temperature 97.9, pulse 115, respirations 28, blood pressure 93/53, saturation 40 on BiPAP. LABORATORY AND DIAGNOSTIC DATA: WBC 53.1, H and H 17 and 52.8, platelets 198, neutrophils 43.6, bands 11, lymphs 1, monos 1. BUN 71, creatinine 1.94. MICROBIOLOGY: Blood culture since admission remains negative. Urine culture on admission grew E coli and Enterococcus species. Repeat cultures on November 03 negative. DIAGNOSTICS: Chest x-ray this morning revealed no acute cardiopulmonary disease, bibasilar atelectasis. ANTIMICROBIALS: The patient is on vancomycin and Zosyn. PHYSICAL EXAMINATION: This is an obese, well-developed, elderly woman, who is in mild distress, currently on BiPAP. HEENT: Head atraumatic, normocephalic. Sclerae anicteric. Buccal mucosa dry. NECK: Supple. CHEST: Rise symmetrical. Breath sounds diminished at bases with scattered rhonchi and poor air movement. HEART: S1, S2. Tachycardic. ABDOMEN: Soft, bowel sounds present. EXTREMITIES: Without cyanosis. Bilateral lower extremities trace edema. ASSESSMENT: 1. Acute hypoxemic respiratory failure. 2. Questionable aspiration pneumonia as per CT of the chest on November 02. 3. Acute asthma exacerbation on admission. 4. Progressive leukocytosis. Patient remains on Solu-Medrol. Taper down to 40 mg IV q.8 hours. 5. Status post urinary tract infection. 6. Obesity. 7. Diabetes. 8. Hypertension. PLAN: The patient apparently decompensated in regards to her respiratory status. Transferred to ICU and currently on BiPAP. Her cultures have been negative so far. CT of the chest on November 02 with questionable aspiration. She has progressive leukocytosis, however on steroids since admission. Renal function getting worse. The patient was given Lasix. We will keep her on vancomycin for now. We will change Zosyn to meropenem. Await procalcitonin level. Add empiric Flagyl if it has not been done yet, as she had a couple of loose stools. Follow Pulmonary's recommendations. Pending a hematology evaluation. Dictated By: Donald Patiño NP /dmitry/zhou /Document#: [id number]
--- NOTE | 2016-11-06 15:06 | RADRPT ---
PROCEDURE: XR Chest. CLINICAL INDICATION: PICC line placement TECHNIQUE: PA and lateral chest x-ray. COMPARISON: Radiograph dated 11/06/[address] dated 11/02/2016 FINDINGS: Interval placement of left-sided PICC line which terminates at the cavoatrial junction. Subsegmental bibasilar atelectasis, unchanged. Interval improvement in bilateral lower lobe infiltrate compared to recent CT scan. Multiple sub centimeter nodules in the left lower lung zone measuring up to 5 mm. No pleural effusion identified. No evidence of pneumothorax. Atherosclerotic calcification of the aorta. The cardiomediastinal silhouette is otherwise unremarkab le. The soft tissues are within normal limits. Bony structures are unremarkable. IMPRESSION: 1. Satisfactory position of left-sided PICC line. 2. Interval improvement in lower lobe infiltrates compared to recent CT scan. 3. Atherosclerotic calcification of the aorta. RPTAT: QQ .Clarence Sena MD, MD Date Time Electronically viewed and signed by .Clarence Sena MD, on 11/06/2016 15:06 .M/
[2016-11-06] MEDS ORDERED: NORepinephrine 8MG/250 ML (PMX 250 ML ONE (16:19)
[2016-11-06] MEDS ORDERED: SOD CHLORIDE 0.9% 1,000 ML IV SCH (16:30)
[2016-11-06] MEDS: NORepinephrine 8MG/250 ML (PMX 250 ML IV SCH ×2 (16:43→21:50)
--- NOTE | 2016-11-06 16:49 | PN ---
DATE: 11/06/2016 SUBJECTIVE DATA: Patient [place] complains of worsening shortness of breath today, more related with hypoxemia requiring initiation of high-flow O2. Transferred to the Intensive Care Unit for further monitoring as she still has markedly labored breathing. Labs show significant leukocytosis. OBJECTIVE DATA: VITAL SIGNS: Temperature 98, pulse 115, blood pressure 93/53, O2 sat 96 percent on BiPAP. NECK: Supple. No JVD or lymph nodes. CARDIAC: S1, S2. No added sounds or murmurs. CHEST: Diminished air entry bilaterally. ABDOMEN: Soft, nontender. No guarding or rebound. EXTREMITIES: No cyanosis, clubbing or edema. NEUROLOGIC: Generalized weakness. LABORATORY AND DIAGNOSTIC DATA: White count is 53.1, hemoglobin 17, platelets of 198,000. BUN is 71, creatinine 1.94. Arterial blood gas; pH 7.39, pCO2 25, PO2 of 72, bicarbonate 15.16. Chest x-ray was reviewed, shows no acute pulmonary process. IMPRESSION: Acute on chronic hypoxemic respiratory failure of unclear etiology, now evidence of metabolic acidosis. In addition, patient has marked leukocytosis concerning for underlying hematological abnormalities. RECOMMENDATIONS: 1. Hematology/oncology recommendations. 2. Continue noninvasive positive pressure ventilation. 3. PICC line placement. 4. DVT and GI prophylaxis. Dictated By: Ramiro Orta MD /dmitry/alejandro /Document#: [id number]
[2016-11-06 17:29] LABS: Allen Test ACCEPTAB; Arterial Base Excess -24.9 mmol/L (-3.0-3); Arterial COHb 0.3 % (0.0-3.0); Arterial Fraction of Oxyhgb 81.6 % (93.0-99.0); Arterial HCO3 8.7 mmol/L (22.0-26.0); Arterial MetHb 0.3 % (0.0-1.5); Arterial Total Hemglobin 17.7 g/dl (12.0-18.0); Blood Gas IEPAP 15/5; MODE MASK - BIPAP
[2016-11-06] MEDS ORDERED: NA BICARBONATE 8.4% 50 ML SYG ONE (18:13)
[2016-11-06] MEDS ORDERED: PHENYLephrine 20MG IN 250 ML 250 ML ONE (18:23)
[2016-11-06] MEDS ORDERED: PHENYLephrine 20MG IN 250 ML 250 ML IV SCH (18:30)
[2016-11-06] MEDS ORDERED: NA BICARBONATE 8.4% 50 ML SYG IV ONE (18:30)
--- NOTE | 2016-11-06 18:50 | RADRPT ---
PROCEDURE: Portable chest x-ray. CLINICAL INDICATION: 81 years of age, female. Tube placement. TECHNIQUE: Portable AP view of the chest. COMPARISON: Chest x-ray from earlier the same day FINDINGS: There is right mainstem bronchus intubation. Recommend withdrawing the endotracheal tube 4 cm into t he trachea. Enteric tube courses below diaphragm with tip not imaged. Left arm PICC line is in similar position over the inferior SVC There is a defibrillator paddle over the anterior chest. Atherosclerotic calcification thoracic aort a. Normal heart size. There is patchy consolidation at right greater than left lung base concerning for aspiration or infe ction that is similar to prior exam. Small left pleural effusion. Negative for evidence of a pneumothorax. There are new mildly displaced fractures of the lateral left third, fourth and fifth ribs. IMPRESSION: Right main stem bronchus intubation. Recommend withdrawing the endotracheal tube 4 cm into the trach ea. Remaining lines and tubes are in good position. Bilateral lower lobe lung consolidation is similar to prior exam and may indicate aspiration or infe ction. Small left pleural effusion is stable. New displaced fractures of the left third through fifth ribs. Negative for clear evidence of a pneum othorax although evaluation is limited on this supine film. Critical results right mainstem bronchus intubation and new left rib fractures were discussed with Prince Ramos RN by Dr. Negra Small on November 06, 2016 at 06:45 p.m.. RPTAT: HCTS Physician Jonah Date Time Electronically viewed and signed by Physician Jonah on 11/06/2016 18:49 /
--- NOTE | 2016-11-06 18:52 | RADRPT ---
PROCEDURE: RENAL ULTRASOUND: CLINICAL INDICATION: 81 years of age, female . Acute kidney injury . COMPARISON: None available. TECHNIQUE: Multiple transverse and longitudinal sonographic joshi scale images of the kidneys and binh dder were obtained, supplemented with color, power, and spectral Doppler imaging. FINDINGS: Right kidney: Length: 9 cm. Appearance: Normal parenchymal echogenicity. Negative for hydronephrosis. Left kidney: Length: 10.4 cm. Appearance: Evaluation is somewhat limited due to patient size and overlying bowel. Parenchymal echo genicity is grossly normal. Negative for hydronephrosis. Bladder: Not visualized. The patient has a Patterson catheter. Additional comment: None. IMPRESSION: Normal renal size. Negative for hydronephrosis. Parenchymal echogenicity is within normal limits alt jackie evaluation of the left kidney is limited. RPTAT: HCTS Physician Jonah Date Time Electronically viewed and signed by Physician Jonah on 11/06/2016 18:51 /
--- NOTE | 2016-11-06 18:53 | RADRPT ---
PROCEDURE: Ultrasound-guided PICC placement CLINICAL INDICATION: Requirement for vascular access. TECHNIQUE: Ultrasound guided PICC placement. COMPARISON: None available. FINDINGS: An ultrasound was performed for PICC placement. IMPRESSION: Ultrasound guided PICC placement. RPTAT: HCTS Physician Jonah Date Time Electronically viewed and signed by Zamzam Small Physician on 11/06/2016 18:52 CS/
--- NOTE | 2016-11-06 19:08 | CONS ---
Date/Time of Note Date/Time of Note DATE: 11/06/16 TIME: 19:00 Assessment/Plan Assessment/Plan Additional Assessment/Plan Patient's son is understandably traumatized, he is crying and finds it very difficult to give me current or past medical. I decided that no reason to open up the conversation of .her CODE STATUS. However did discuss with him whether or not they had ever discussed level of care i.e. cardiopulmonary resuscitation , lifesaving procedures, long stays in hospitals or quality of life.. Family members have never discussed however patient son has a clear understanding of how seriously ill she at this time. He did state that he is very spiritual and he is leaving up to got to decide upon whether or not she will survive I do not address estimated prognosis acceptable quality of life or cultural issues at this time. He will concentrate on establishing ongoing communication follow-up will be done with patient's family tomorrow. Patient will remain full code Consultation Date/Type/Reason Admit Date/Time Oct 23, 2016 at 10:25 Type of Consultation: Palliative care Hx of Present Illness This is an 81-year-old female who was admitted [facility] increasing shortness of breath. Patient has a long-standing history of asthma and has been admitted to at least 3 hospitals in the recent past according to her son. Patient was never intubated. She is currently in the intensive care unit having been transferred down secondary to increasing shortness of breath hypoxic respiratory failure. I am asked to speak to family members and open medication insofar as patient's ongoing level of care, prognosis and to assist with supportive care of patient's family. Patient's son is at the bedside there is another son who is currently out of town patient's is . There are other second-degree family members but the sons are decision makers. She is a full code Psychological: no complaints Past Surgical History Past Surgical Hx: no surgical history Social History Alcohol Use: none Smoking Status: Former smoker Drug Use: none Exam/Review of Systems Vital Signs Vitals Vital Signs Date Time Temp Pulse Resp B/P Pulse Ox O2 Delivery O2 Flow Rate FiO2 11/06/16 17:57 100 11/06/16 17:45 110 18 99 11/06/16 16:45 86/25 11/06/16 16:30 BIPAP 11/06/16 16:00 98.1 11/06/16 10:15 10.0 Intake and Output 11/05/16 11/05/16 11/06/16 15:00 23:00 07:00 Intake Total 715 ml 350 ml Output Total 1300 ml 550 ml Balance -585 ml -200 ml Exam Neck: non-tender, supple, No bruits, No jvd, No masses, No nuchal rigidity, No other, No thyromegaly Respiratory: congested cough, crackles/rales, diminished breath sounds, labored breathing, wheezing Cardiovascular: nl pulses, regular rate and rhythm, No S3, No S4, No bruits, No diastolic murmur, No edema, No gallop, No irregular rhythm, No jugular venous distention (JVD), No murmurs/extra sounds, No other, No rub, No systolic murmur Gastrointestinal: bowel sounds, distended Neurological: other (Debating, flailing all 4 extremities, grimacing) Results Result Diagram: 11/06/16 0654 11/06/16 0654 Results 24 hrs Laboratory Tests Test 11/05/16 19:56 11/06/16 06:54 11/06/16 08:00 11/06/16 09:42 Bedside Glucose 96 186 White Blood Count 53.1 H Red Blood Count 6.17 H Hemoglobin 17.0 H Hematocrit 52.8 H Mean Corpuscular Volume 85.6 Mean Corpuscular Hemoglobin 27.6 L Mean Corpuscular Hemoglobin Concent 32.2 Red Cell Distribution Width 15.9 H Platelet Count 198 # Mean Platelet Volume 9.8 Neutrophils % Segmented Neutrophils % (Manual) 71 Band Neutrophils % (Manual) 21 H Lymphocytes % Lymphocytes % (Manual) 2 L Monocytes % Monocytes % (Manual) 4 Eosinophils % Basophils % Metamyelocytes % (manual) 1 H Myelocytes % (Manual) 1 H Nucleated Red Blood Cells % 0.1 H Neutrophils # (Manual) 43.6 H Band Neutrophils # 11.1 H Absolute Lymphocytes (Manual) 1.0 Lymphocytes # 1.1 Monocytes # 2.1 H Absolute Monocytes (Manual) 2.1 H Eosinophils # Basophils # Metamyelocytes # 0.5 H Myelocytes # 0.5 H Nucleated Red Blood Cells # Sodium Level 135 Potassium Level 4.1 Chloride Level 101 Carbon Dioxide Level 24 # Anion Gap 14 Blood Urea Nitrogen 71 #H Creatinine 1.94 #H Glucose Level 225 H Calcium Level 7.2 L Phosphorus Level 7.1 H Magnesium Level 2.6 H Total Bilirubin 1.0 Direct Bilirubin 0.00 Indirect Bilirubin 1.0 Aspartate Amino Transf (AST/SGOT) 30 Alanine Aminotransferase (ALT/SGPT) 33 Alkaline Phosphatase 64 Total Protein 4.5 L Albumin 2.2 L Globulin 2.30 Albumin/Globulin Ratio 0.95 Blood Gas Specimen Source Blood arterial Arterial Blood Date Drawn 11/06/2016 9:57:48 AM Arterial Blood pH (Temp corrected) 7.398 Arterial Blood pCO2 (Temp correct) 25.0 L Arterial Blood pO2 (Temp corrected) 72.6 L Arterial Blood HCO3 15.1 L Arterial Blood Base Excess -7.1 L Arterial Blood Oxygen Saturation 93.9 L Celestine Test ACCEPTAB Arterial Blood Gas Puncture Site Right Radial Arterial Blood Carboxyhemoglobin 0.2 Arterial Blood Methemoglobin 0.5 Blood Gas A-a O2 Differential 334.9 H Oxyhemoglobin Percent 93.2 Total Hemoglobin 19.4 H Blood Gas Temperature 37.0 Blood Gas Modality MASK - SIMPLE FiO2 61.0 Blood Gas Notified Whom PR Blood Gas Notified Time 11/06/2016 10:03:03 AM Test 11/06/16 09:52 11/06/16 11:54 11/06/16 15:16 11/06/16 16:37 Bedside Glucose 240 H 229 H 144 Erythrocyte Sedimentation Rate 1 Lactic Acid Level 11.4 *H Test 11/06/16 16:40 Blood Gas Specimen Source Blood arterial Arterial Blood Date Drawn 11/06/2016 5:10:33 PM Arterial Blood pH (Temp corrected) 6.885 *L Arterial Blood pCO2 (Temp correct) 46.8 H Arterial Blood pO2 (Temp corrected) 74.4 L Arterial Blood HCO3 8.7 *L Arterial Blood Base Excess -24.9 L Arterial Blood Oxygen Saturation 82.1 L Celestine Test ACCEPTAB Arterial Blood Gas Puncture Site Right Radial Arterial Blood Carboxyhemoglobin 0.3 Arterial Blood Methemoglobin 0.3 Blood Gas A-a O2 Differential 157.0 H Oxyhemoglobin Percent 81.6 L Total Hemoglobin 17.7 Blood Gas Temperature 37.0 Blood Gas Respiration Rate 16.0 Blood Gas Actual Respiration Rate 21 Blood Gas Modality MASK - BIPAP FiO2 40.0 Blood Gas IPAP/EPAP Ratio 15/5 Blood Gas Critical Value Read Back T [place] Blood Gas Notified Whom DTAYLOR Blood Gas Notified Time 11/06/2016 5:28:30 PM Medications Medications Current Medications Acetaminophen (Tylenol Tab) 650 mg Q6H PRN PO PAIN LEVEL 1-3 OR FEVER; Start at 11:00 Acetaminophen/ Hydrocodone Bitart ([place] (5/325)) 1 tab Q6H PRN PO PAIN LEVEL 4 -6 Last administered on 11/05/16 09:36; Admin Dose 1 TAB; Start 10/23/16 at 11: 00 Docusate Sodium (Colace) 100 mg Q12H PRN PO CONSTIPATION; Start 10/23/16 at 11: 00 Magnesium Hydroxide (Milk Of Mag) 30 ml DAILY PRN PO CONSTIPATION; Start at 11:00 Bisacodyl (Dulcolax) 5 mg DAILY PRN PO CONSTIPATION; Start 10/23/16 at 11:00 Bisacodyl (Dulcolax Supp) 10 mg DAILY PRN VT CONSTIPATION; Start 10/23/16 at 11 :00 Aspirin (Halfprin) 81 mg DAILY PO Last administered on 11/06/16 09:22; Admin Dose 81 MG; Start 10/24/16 at 09:00 Montelukast Sodium (Singulair) 10 mg QHS PO Last administered on 11/05/16 20:02 ; Admin Dose 10 MG; Start 10/23/16 at 21:00 Salmeterol Xinafoate/ Fluticasone (Advair 500/50 Diskus) 1 inh BID INH Last administered on 11/06/16 09:22; Admin Dose 1 INH; Start 10/23/16 at 21:00 Tiotropium Delta (Spiriva) 1 inh DAILY INH Last administered on 11/06/16 09: 22; Admin Dose 1 INH; Start 10/24/16 at 09:00 Atorvastatin Calcium (Lipitor) 10 mg DAILY@21 PO Last administered on 11/05/16 20:02; Admin Dose 10 MG; Start 10/23/16 at 21:00 Miscellaneous Information 1 ea NOTE XX ; Start 10/23/16 at 18:30 Glucose (Glutose) 15 gm Q15M PRN PO DECREASED GLUCOSE; Start 10/23/16 at 18:30 Glucose (Glutose) 22.5 gm Q15M PRN PO DECREASED GLUCOSE; Start 10/23/16 at 18: 30 Dextrose (D50w Syringe) 25 ml Q15M PRN IV DECREASED GLUCOSE; Start 10/23/16 at 18:30 Dextrose (D50w Syringe) 50 ml Q15M PRN IV DECREASED GLUCOSE; Start 10/23/16 at 18:30 Glucagon (Glucagen) 1 mg Q15M PRN IM DECREASED GLUCOSE; Start 10/23/16 at 18:30 Glucose (Glutose) 15 gm Q15M PRN BUCCAL DECREASED GLUCOSE; Start 10/23/16 at 18 :30 Hydralazine HCl (Apresoline) 10 mg Q6H PRN IV ELEVATED BLOOD PRESSURE Last administered on 10/26/16 11:11; Admin Dose 10 MG; Start 10/24/16 at 14:00 Amlodipine Besylate (Norvasc) 5 mg BID PO Last administered on 11/06/16 09:22 ; Admin Dose 5 MG; Start 10/26/16 at 17:00 Famotidine (Pepcid) 20 mg BID PO Last administered on 11/06/16 09:22; Admin Dose 20 MG; Start 10/31/16 at 21:00 Diltiazem HCl (Cardizem Iv) 10 mg Q4H PRN IV hr>120; Start 11/01/16 at 22:15 Insulin Glargine (Lantus) 20 unit DAILY@08 SC Last administered on 11/06/16 08 :07; Admin Dose 20 UNIT; Start 11/03/16 at 08:00 Methylprednisolone Sodium Succinate (Solu-Medrol) 40 mg Q8 IV Last administered on 11/06/16 14:01; Admin Dose 40 MG; Start 11/05/16 at 14:00 Miscellaneous Information (Pending Santyl Order For Wound Care) This patient rae... PRN PRN XX WOUND CARE; Start 11/05/16 at 22:00 Heparin Sodium (Porcine) 5000 unit 5,000 unit BID SC ; Start 11/06/16 at 21:00 Meropenem/Sodium Chloride 50 ml @ 100 mls/hr Q12 IVPB ; Start 11/06/16 at 21:00 Metronidazole (Flagyl 500 Mg (Pmx)) 100 ml @ 100 mls/hr Q8 IVPB Last administered on 11/06/16 14:03; Admin Dose 100 MLS/HR; Start 11/06/16 at 14:00 IV Flush 10 ml 10 ml PRN PRN IV IV PROTOCOL; Start 11/06/16 at 15:30 Norepinephrine 250 ml @ 1.875 mls/ hr TITRATE IV Last administered on t 16:43; Admin Dose 7.5 MLS/HR; Start 11/06/16 at 16:30 Propofol 100 ml @ 2.4 mls/hr Q12H IV ; Start 11/06/16 at 18:00 Phenylephrine HCl 40 mg/Dextrose 500 ml @ 75 mls/hr TITRATE IV ; Start at 19:00 Sodium Bicarbonate/ Dextrose (Na Bicarb/D5W) 1,150 ml @ 100 mls/hr [id number] IV ; Start 11/06/16 at 19:30 Sodium Bicarbonate (Na Bicarb 8.4% Syg) 100 ml ONCE ONCE IV ; Start 11/06/16 at 18:30; Stop 11/06/16 at 18:31 Insulin Aspart (Novolog Insulin Pen) (Adult SC Insulin - Mild Algorithm)... Q4 SC ; Start 11/06/16 at 21:00 TIMMY PICKETT Nov 06, 2016 19:08
--- NOTE | 2016-11-06 19:12 | QN ---
Documentation Comment Emergent intubation and CODE BLUE. Called to room 117 of the ICU for emergent intubation. CPR note: When arrived to the room the patient started coding and CPR was in progress. I had called high quality CPR continued and 1 mg of epinephrine and 1 amp of sodium bicarbonate was given. Parous continued for 2 rounds. After which pulse check was performed and the patient had pulses and a blood pressure was checked patient actually had a high blood pressure likely related to the epinephrine. I recommend adding a second pressors with levo fed as the patient had bradycardia down and also blood pressure. I recommended phenylephrine. ET intubation note: Patient was creatinine with bag mask ventilation up to 100% . I easily introduced a size 7.5 tube through visualized vocal cords using a MAC 4 blade. No medications were given as the patient had just come out of her coat and had just regained pulses. She tolerated the procedure well there were no complications. Only one attempt was made. Patient was saturating 100% after the procedure TRACY MARADIAGA DO Nov 06, 2016 19:12
[2016-11-06 19:25] LABS: MAGNESIUM 2.9 mg/dl (1.7-2.5)
[2016-11-06 19:38] LABS: CALCIUM 5.4 mg/dl (8.4-10.2); CREATININE 2.57 mg/dl (0.44-1.00)
[2016-11-06] MEDS: SODIUM BICARBONATE (IV ADD) 150 MEQ in DEXTROSE 5% 1,000 ML IV SCH (19:46)
[2016-11-06] MEDS: PROPOFOL 100 ML IV SCH (19:47)
--- NOTE | 2016-11-06 19:58 | RADRPT ---
PROCEDURE: Portable chest x-ray. CLINICAL INDICATION: 81 years of age, female. Endotracheal tube adjustment. TECHNIQUE: Portable AP view of the chest. COMPARISON: Chest x-ray from earlier the same day FINDINGS: Endotracheal tube as 4.5 cm from felisa. Remaining lines and tubes are unchanged. Remainder of the chest is unchanged. Right greater than left lower lobe consolidation is unchanged. Previously identified left pleural effusion is not well seen. Left lung is relatively hyperlucent. N egative for clear evidence of a pneumothorax. Previously suspected in the left rib fractures are not seen. IMPRESSION: Endotracheal tube is in good position. The remainder of the chest is unchanged. There is bilateral lower lobe lung consolidation. Left pleu ral effusion and left rib fractures are not well seen on the current radiograph that may be technica lFredrick RPTAT: HCTS Physician Jonah Date Time Electronically viewed and signed by Physician Jonah on 11/06/2016 19:58 /
[2016-11-06 19:59] LABS: AADO2 Arterial 442.6 mmHg (7.0-24.0); Allen Test ACCEPTAB; Arterial Base Excess -20.5 mmol/L (-3.0-3); Arterial COHb 0.3 % (0.0-3.0); Arterial Fraction of Oxyhgb 98.3 % (93.0-99.0); Arterial HCO3 8.6 mmol/L (22.0-26.0); Arterial MetHb 0.4 % (0.0-1.5); Arterial Total Hemglobin 16.1 g/dl (12.0-18.0); MODE VENT - AC
[2016-11-06] MEDS ORDERED: ALBUMIN HUMAN 5% 250 ML ONE (19:59)
[2016-11-06] MEDS ORDERED: SOD CHLORIDE 0.9% 1,000 ML IV ONE (20:00)
[2016-11-06] MEDS ORDERED: DEXTROSE 50% 50 ML SYRINGE IV ONE (20:00)
[2016-11-06] MEDS ORDERED: ALBUMIN HUMAN 5% 250 ML IV ONE (20:00)
--- NOTE | 2016-11-06 20:15 | CONS ---
DATE OF ADMISSION: 10/23/2016 DATE OF CONSULTATION: 11/06/2016 REASON FOR CONSULTATION: Acute kidney injury. REFERRING PHYSICIAN: Dr. Jaimes. HISTORY OF PRESENT ILLNESS: This is an 81-year-old female with a past medical history of asthma, history of hypertension. Patient presented to [facility] on 10/23 with worsening shortness of breath. Patient also noted to have a cough, increased wheezing. When she came to the emergency room, the patient was noted to be in acute respiratory failure. Patient was diagnosed with asthma exacerbation, was treated with steroids, IV antibiotics, placed on BiPAP. Patient was admitted to the intensive care unit, where she has had progressive shortness of breath. A CT angio was performed on 11/03, which was negative for PE. Patient, however, was noted to have inflammatory process in the lower lungs and was continued on antibiotic therapy. RENAL HISTORY: Patient noted in the last 24 hours to have a decrease in urinary output, with an increase in creatinine from previous baseline of 0.6 to 1.94 mg/dL. There has been no reports of hemoptysis, hematemesis, hematochezia. Patient, however, has been noted to be hypertensive in the last 24 hours. The patient also noted to be on diuretic therapy, to be on Cozaar. PAST MEDICAL HISTORY: As stated above. History of hypertension, history of asthma. PAST SURGICAL HISTORY: None. ALLERGIES: NO KNOWN DRUG ALLERGIES. FAMILY HISTORY: Noncontributory. SOCIAL HISTORY: Does not drink, smoke, or do drugs. REVIEW OF SYSTEMS: Unable to adequately review systems. Patient is altered. Pertinent positives as obtained through reviewing medical records, speaking to hospital staff, in HPI, otherwise negative. PHYSICAL EXAMINATION: VITAL SIGNS: Blood pressure was 86/25, respirations 20, pulse 104, temperature 98.1. GENERAL APPEARANCE: The patient is frail, ill-appearing. HEENT: Head is normocephalic. Pupils are reactive to light. NECK: Supple. CARDIAC: Tachycardic. LUNGS: Show diminished breath sounds at the base. ABDOMEN: Soft, nontender to palpation. No rebound or guarding. EXTREMITIES: Negative for clubbing, cyanosis. No edema. DERMATOLOGIC: No rashes. MUSCULOSKELETAL: No joint effusion. NEUROLOGIC: No change in exam. MEDICATION: Patient's medications have been reviewed. LABORATORY: Shows sodium 135, potassium 4.1, chloride 101, BUN 71, creatinine 1.94. White count is , hemoglobin 17.0, hematocrit 42.8, platelet count is 198. Imaging studies have been reviewed. IMPRESSION AND PLAN: This is an 81-year-old female who presents with: 1. acute kidney injury, with previously known baseline creatinine 0.71 mg/dL. Etiology of acute kidney injury is likely secondary to acute tubular necrosis due to multifactorial causes, including hypoperfusion, contrast- associated nephropathy, possible septic acute kidney injury. Patient currently is in injury phase of acute tubular necrosis, given significant and sudden rise of creatinine. Patient's initial urinalysis was bland; no evidence of active sediment. Plan at this point is to repeat urinalysis with microanalysis. Will check urine lytes. Would hold IV Lasix and Cozaar. Continue aggressive IV hydration and IV antibiotics. We will monitor renal function closely. If patient remains anuric for the next 24-48 hours, would consider diuretic challenge. 2. Hypertension. Etiology may be secondary to volume depletion due to recent diuretic use and/or sepsis. Would continue IV hydration at this time. Discontinue diuretics. Continue antibiotic therapy. Blood cultures have been reviewed. Patient may have underlying urinary tract infection. Continue supportive care. 3. Leukocytosis. Etiology is likely reactive due to recent steroids. A Hematology consult is in place. Continue to monitor. 4. Severe respiratory failure secondary to asthma exacerbation. Continue current medical management. Continue BiPAP. Continue steroids, nebulizers. Follow up with Pulmonary. 5. Mineral bone disorder. Patient's phosphorus levels are markedly elevated secondary to acute kidney injury. At this point, will continue to monitor. Consider starting phos binders. 6. Possible urinary tract infection, aspiration pneumonia. Continue current antibiotic regimen. Follow up with Infectious Disease. 7. Diabetes. Continue Accu-Cheks and sliding scale. 8. History of hypertension. Patient now hypotensive. Hold blood pressure medications Thank you, Dr. Jaimes, for this interesting consult. It will be a pleasure to follow patient with you throughout the hospital course. Dictated By: Wojciech Pierson DO /[email or web address] /Document#: [id number]
[2016-11-06] MEDS: PHENYLephrine 40 MG in DEXTROSE 5% 496 ML IV SCH ×2 (20:49→23:24)
[2016-11-06] MEDS: LEVALBUTEROL (HFA) 15 GM INHALER INH SCH (21:00)
[2016-11-06] MEDS ORDERED: CALCIUM GLUCONATE 10% 1 GM in SOD CHLORIDE 0.9% 100 ML IVPB ONE (21:00)
[2016-11-06] MEDS: HEPARIN 5,000 UNIT/0.5 ML VIAL SC SCH (21:00)
[2016-11-06] MEDS: Insulin NOVOLOG SS MILD Algorithm (NPO/TPN/ENTERAL FEEDS) SC SCH (21:00)
[2016-11-06] MEDS: MEROPENEM 500MG/50 ML (PMX) 50 ML IVPB SCH (21:03)
[2016-11-06] MEDS: ATORVASTATIN 10 MG TAB PO SCH (21:22)
[2016-11-06] MEDS: MONTELUKAST 10 MG TAB PO SCH (21:22)
[2016-11-06] MEDS ORDERED: INSULIN ASPART [NOVOLOG] 3 ML PEN SC SCH (21:35)
[2016-11-06] MEDS: VASOPRESSIN 60 UNIT in DEXTROSE 5% 57 ML IV SCH (22:00)
[2016-11-07] VITALS (46 sets, daily range): BP systolic 63–116; BP diastolic 29–69; PULSE 0–107; RESP 20–35
[2016-11-07] MEDS: VASOPRESSIN 60 UNIT in DEXTROSE 5% 57 ML IV SCH (00:05)
[2016-11-07] MEDS: LEVALBUTEROL (HFA) 15 GM INHALER INH SCH ×3 (00:09→09:20)
[2016-11-07] MEDS: Insulin NOVOLOG SS MILD Algorithm (NPO/TPN/ENTERAL FEEDS) SC SCH ×2 (01:00→05:00)
[2016-11-07] MEDS: PHENYLephrine 40 MG in DEXTROSE 5% 496 ML IV SCH (01:56)
[2016-11-07] MEDS ORDERED: PHENYLephrine 160 MG in DEXTROSE 5% 484 ML IV SCH (02:00)
[2016-11-07] MEDS ORDERED: NORepinephrine 32 MG in DEXTROSE 5% 218 ML IV SCH (02:00)
[2016-11-07] MEDS ORDERED: INSULIN ASPART [NOVOLOG] 3 ML PEN SC ONE (02:00)
[2016-11-07 02:18] LABS: CALCIUM 6.2 mg/dl (8.4-10.2)
[2016-11-07 02:31] LABS: CREATININE 3.04 mg/dl (0.44-1.00)
[2016-11-07] MEDS ORDERED: NA POLYST SULFON 15 GM/60 ML BTL GTB ONE (03:00)
[2016-11-07] MEDS ORDERED: DEXTROSE 50% 50 ML SYRINGE IV ONE (03:00)
[2016-11-07] MEDS ORDERED: INSULIN REGULAR, HUMAN 100 UNIT/1 ML 3ML VIAL IV ONE (03:00)
[2016-11-07] MEDS ORDERED: CALCIUM GLUCONATE 10% 1 GM in SOD CHLORIDE 0.9% 100 ML IVPB ONE (03:00)
[2016-11-07] MEDS ORDERED: SOD CHLORIDE 0.9% 1,000 ML IV ONE (03:00)
[2016-11-07] MEDS: PROPOFOL 100 ML IV SCH (05:25)
[2016-11-07] MEDS ORDERED: ACCU-CHEK XX SCH (05:30)
[2016-11-07] MEDS: metroNIDAZOLE 500 MG/NS (PMX) 100 ML IVPB SCH (05:30)
[2016-11-07] MEDS ORDERED: INSULIN HUMAN REGULAR 100 UNIT in SOD CHLORIDE 0.9% 99 ML IV SCH ×2 (05:30→06:00)
[2016-11-07] MEDS ORDERED: DEXTROSE 50% 50 ML SYRINGE IV PRN ×4 (05:30→06:00)
[2016-11-07] MEDS: METHYLPREDNISOLONE 40 MG INJ IV SCH (05:30)
[2016-11-07 05:44] LABS: MAGNESIUM 2.9 mg/dl (1.7-2.5)
[2016-11-07 05:55] LABS: CK-MB 36.3 ng/ml (0.0-2.4)
[2016-11-07 06:06] LABS: AADO2 Arterial 317.6 mmHg (7.0-24.0); Allen Test ACCEPTAB; Arterial Base Excess -25.7 mmol/L (-3.0-3); Arterial COHb 0.3 % (0.0-3.0); Arterial Fraction of Oxyhgb 87.6 % (93.0-99.0); Arterial HCO3 6.1 mmol/L (22.0-26.0); Arterial MetHb 0.4 % (0.0-1.5); Arterial Total Hemglobin 12.5 g/dl (12.0-18.0); MODE VENT - AC
[2016-11-07 06:15] LABS: CREATININE 3.15 mg/dl (0.44-1.00)
[2016-11-07 06:16] LABS: ABNORMAL IP MESSAGE 1; HEMATOCRIT 38.1 % (37.0-47.0); MEAN CORPUSCULAR HEMOGLOBIN 29.3 pg (29.0-33.0); MEAN CORPUSCULAR HGB CONC 28.9 g/dl (32.0-37.0); MEAN CORPUSCULAR VOLUME 101.6 fl (82.0-101.0); MEAN PLATELET VOLUME 10.2 fl (7.4-10.4); NUCLEATED RED BLOOD CELLS% 1.4 /100WBC (0.0-0.0); PLATELET COUNT 43 10^3/UL (140-415); RED BLOOD COUNT 3.75 10^6/ul (4.20-5.40); RED CELL DISTRIBUTION WIDTH 15.5 % (11.5-14.5); WHITE BLOOD COUNT 45.9 10^3/ul (4.8-10.8)
[2016-11-07 06:17] LABS: CALCIUM 5.9 mg/dl (8.4-10.2); POTASSIUM 6.2 mmol/L (3.5-5.1)
[2016-11-07] MEDS ORDERED: NA BICARBONATE 8.4% 50 ML SYG ONE (06:18)
[2016-11-07 06:20] LABS: POSITIVE DIFF @See below
[2016-11-07] MEDS ORDERED: ALBUMIN HUMAN 5% 250 ML IV ONE (06:30)
[2016-11-07] MEDS ORDERED: EPINEPHrine 4 MG in SOD CHLORIDE 0.9% 246 ML IV SCH (06:30)
[2016-11-07] MEDS ORDERED: NA BICARBONATE 8.4% 50 ML SYG IV ONE (06:30)
[2016-11-07 06:36] LABS: TROPONIN-I 0.564 ng/ml (0.00-0.12)
[2016-11-07] MEDS ORDERED: ALBUMIN HUMAN 5% 250 ML ONE (06:37)
[2016-11-07] MEDS: SODIUM BICARBONATE (IV ADD) 150 MEQ in DEXTROSE 5% 1,000 ML IV SCH (06:44)
[2016-11-07] MEDS ORDERED: CALCIUM GLUCONATE 10% 2 GM in SOD CHLORIDE 0.9% 100 ML IVPB ONE (07:45)
[2016-11-07] MEDS ORDERED: PHENYLephrine 160 MG in SOD CHLORIDE 0.9% 484 ML IV SCH (07:45)
[2016-11-07] MEDS ORDERED: NORepinephrine 32 MG in SOD CHLORIDE 0.9% 218 ML IV SCH (07:45)
[2016-11-07] MEDS: ACCU-CHEK XX SCH ×5 (07:54→11:00)
[2016-11-07 07:55] LABS: ANISOCYTOSIS 1+ (0-0); EOSINOPHILS % (M) 3 % (0-7); METAMYELOCYTES %M 7 % (0-0); MONOCYTES % (M) 1 % (0-11); MYELOCYTES % (M) 8 % (0-0); PLATELET ESTIMATE DECREASED; POIKILOCYTOSIS 3+ (0-0)
[2016-11-07] MEDS: SALMETEROL/FLUTICASONE 500/50 INHA INH SCH (07:55)
[2016-11-07] MEDS: TIOTROPIUM 18 MCG CAPSULE INHA DEV INH SCH (07:58)
[2016-11-07] MEDS: AMLODIPINE 5 MG TAB PO SCH (09:00)
[2016-11-07] MEDS: HEPARIN 5,000 UNIT/0.5 ML VIAL SC SCH (09:00)
[2016-11-07] MEDS ORDERED: ASPIRIN 81 MG TAB NGT SCH (09:00)
[2016-11-07 09:02] LABS: AADO2 Arterial 586.5 mmHg (7.0-24.0); Allen Test ACCEPTAB; Arterial Base Excess -21.2 mmol/L (-3.0-3); Arterial COHb 0.3 % (0.0-3.0); Arterial Fraction of Oxyhgb 95.5 % (93.0-99.0); Arterial HCO3 7.5 mmol/L (22.0-26.0); Arterial MetHb 0.3 % (0.0-1.5); Arterial Total Hemglobin 12.1 g/dl (12.0-18.0); MODE VENT - AC
[2016-11-07] MEDS: MEROPENEM 500MG/50 ML (PMX) 50 ML IVPB SCH (09:18)
[2016-11-07] MEDS: FAMOTIDINE 20 MG TAB PO SCH (09:18)
[2016-11-07] MEDS: BUDESONIDE (NEB) 0.5MG/2ML AMP HHN SCH (09:19)
[2016-11-07] MEDS ORDERED: NA BICARBONATE 8.4% 50 ML SYG IV STA (09:31)
[2016-11-07] MEDS ORDERED: VASOPRESSIN 60 UNIT in SOD CHLORIDE 0.9% 57 ML IV SCH (10:00)
--- NOTE | 2016-11-07 10:10 | CONS ---
Date/Time of Note Date/Time of Note DATE: 11/07/16 TIME: 10:07 Consult Date/Type/Reason Admit Date/Time Oct 23, 2016 at 10:25 Type of Consultation: Pulmonary Ordering Provider: RAYMOND LARIOS NP Subjective Patient intubated yesterday for severe metabolic acidosis. Renal consult appreciated. Remains on mechanical ventilation. Objective Vital Signs Date Time Temp Pulse Resp B/P Pulse Ox O2 Delivery O2 Flow Rate FiO2 11/07/16 09:20 97 20 94 100 11/07/16 07:30 97.6 98/66 11/07/16 06:45 Mechanical Ventilator 11/06/16 10:15 10.0 Intake and Output 11/06/16 11/06/16 11/07/16 15:00 23:00 07:00 Intake Total 500 ml 3305.40 ml 3897.17 ml Output Total 2 ml 3 ml 0 ml Balance 498 ml 3302.40 ml 3897.17 ml Exam PHYSICAL EXAMINATION GENERAL: Elderly lady intubated on mechanical ventilation appears comfortable rest VITAL SIGNS: see below. HEENT: Pupils equal, round, and reactive to light. CARDIAC: S1, S2, 1/6 systolic ejection murmur CHEST: Diminished air entry bilaterally. ABDOMEN: Mildly distended. Bowel sounds present no guarding or rebound EXTREMITIES: No cyanosis, clubbing edema +1 NEUROLOGIC: Generalized weakness Results/Medications Result Diagram: 11/07/16 0500 11/07/16 0500 Results 24 hrs Laboratory Tests Test 11/06/16 11:54 11/06/16 15:16 11/06/16 16:37 11/06/16 16:40 Bedside Glucose 229 H 144 Erythrocyte Sedimentation Rate 1 Lactic Acid Level 11.4 *H Blood Gas Specimen Source Blood arterial Arterial Blood Date Drawn 11/06/2016 5:10:33 PM Arterial Blood pH (Temp corrected) 6.885 *L Arterial Blood pCO2 (Temp correct) 46.8 H Arterial Blood pO2 (Temp corrected) 74.4 L Arterial Blood HCO3 8.7 *L Arterial Blood Base Excess -24.9 L Arterial Blood Oxygen Saturation 82.1 L Celestine Test ACCEPTAB Arterial Blood Gas Puncture Site Right Radial Arterial Blood Carboxyhemoglobin 0.3 Arterial Blood Methemoglobin 0.3 Blood Gas A-a O2 Differential 157.0 H Oxyhemoglobin Percent 81.6 L Total Hemoglobin 17.7 Blood Gas Temperature 37.0 Blood Gas Respiration Rate 16.0 Blood Gas Actual Respiration Rate 21 Blood Gas Modality MASK - BIPAP FiO2 40.0 Blood Gas IPAP/EPAP Ratio 15/5 Blood Gas Critical Value Read Back Prince CRAMER Blood Gas Notified Whom DTAYLOR Blood Gas Notified Time 11/06/2016 5:28:30 PM Test 11/06/16 19:00 11/06/16 19:43 11/06/16 19:48 11/06/16 20:38 Blood Gas Specimen Source Blood arterial Arterial Blood Date Drawn 11/06/2016 7:45:48 PM Arterial Blood pH (Temp corrected) 7.066 *L Arterial Blood pCO2 (Temp correct) 30.7 L Arterial Blood pO2 (Temp corrected) 239.7 H Arterial Blood HCO3 8.6 *L Arterial Blood Base Excess -20.5 L Arterial Blood Oxygen Saturation 99.0 Celestine Test ACCEPTAB Arterial Blood Gas Puncture Site Right Radial Arterial Blood Carboxyhemoglobin 0.3 Arterial Blood Methemoglobin 0.4 Blood Gas A-a O2 Differential 442.6 H Oxyhemoglobin Percent 98.3 Total Hemoglobin 16.1 Blood Gas Temperature 37.0 Blood Gas Respiration Rate 20.0 Blood Gas Actual Respiration Rate 33 Blood Gas Modality VENT - AC FiO2 100.0 Blood Gas Tidal Volume 500.0 Blood Gas Low PEEP Setting 5.0 Blood Gas Critical Value Read Back BIANKA RUBIO Blood Gas Notified Whom LAN Blood Gas Notified Time 11/06/2016 7:59:03 PM Sodium Level 143 Potassium Level 5.0 Chloride Level 111 H Carbon Dioxide Level 15 L Anion Gap 22 #H Blood Urea Nitrogen 67 H Creatinine 2.57 H Glucose Level 45 #*L Lactic Acid Level 14.2 *H Calcium Level 5.4 *L Magnesium Level 2.9 H Bedside Glucose 92 70 94 Test 11/06/16 20:55 11/07/16 00:20 11/07/16 01:31 11/07/16 03:12 Bedside Glucose 109 266 H 329 H Sodium Level 136 Potassium Level 6.0 H Chloride Level 100 # Carbon Dioxide Level 9 #*L Anion Gap 33 #H Blood Urea Nitrogen 65 H Creatinine 3.04 H Glucose Level 284 #H Calcium Level 6.2 L Test 11/07/16 03:34 11/07/16 05:00 11/07/16 05:04 11/07/16 06:00 Bedside Glucose 358 H 429 *H White Blood Count 45.9 H Red Blood Count 3.75 #L Hemoglobin 11.0 #L Hematocrit 38.1 # Mean Corpuscular Volume 101.6 H Mean Corpuscular Hemoglobin 29.3 Mean Corpuscular Hemoglobin Concent 28.9 L Red Cell Distribution Width 15.5 H Platelet Count 43 #L Mean Platelet Volume 10.2 Neutrophils % Segmented Neutrophils % (Manual) 43 Band Neutrophils % (Manual) 28 H Lymphocytes % Lymphocytes % (Manual) 9 L Monocytes % Monocytes % (Manual) 1 Eosinophils % Eosinophils % (Manual) 3 Basophils % Metamyelocytes % (manual) 7 H Myelocytes % (Manual) 8 H Nucleated Red Blood Cells % 1.4 H Neutrophils # (Manual) 25.6 H Band Neutrophils # 12.8 H Absolute Lymphocytes (Manual) 4.1 H Lymphocytes # Monocytes # Absolute Monocytes (Manual) 0.4 Eosinophils # Basophils # Metamyelocytes # 3.2 H Myelocytes # 3.6 H Nucleated Red Blood Cells # Platelet Estimate DECREASED Poikilocytosis 3+ Anisocytosis 1+ Macrocytosis 1+ Sodium Level 130 L Potassium Level 6.2 *H Chloride Level 98 Carbon Dioxide Level 9 *L Anion Gap 29 H Blood Urea Nitrogen 60 H Creatinine 3.15 H Glucose Level 376 H Calcium Level 5.9 *L Phosphorus Level 17.0 #H Magnesium Level 2.9 H Creatine Kinase 1062 H Creatine Kinase Index 3.4 Creatinine Kinase MB (Mass) 36.30 H Troponin I 0.564 *H Blood Gas Specimen Source Blood arterial Arterial Blood Date Drawn 11/07/2016 5:50:22 AM Arterial Blood pH (Temp corrected) 6.915 *L Arterial Blood pCO2 (Temp correct) 30.7 L Arterial Blood pO2 (Temp corrected) 76.4 L Arterial Blood HCO3 6.1 *L Arterial Blood Base Excess -25.7 L Arterial Blood Oxygen Saturation 88.2 L Celestine Test ACCEPTAB Arterial Blood Gas Puncture Site Right Radial Arterial Blood Carboxyhemoglobin 0.3 Arterial Blood Methemoglobin 0.4 Blood Gas A-a O2 Differential 317.6 H Oxyhemoglobin Percent 87.6 L Total Hemoglobin 12.5 Blood Gas Temperature 37.0 Blood Gas Respiration Rate 20.0 Blood Gas Actual Respiration Rate 21 Blood Gas Modality VENT - AC FiO2 60.0 Blood Gas Tidal Volume 500.0 Blood Gas Low PEEP Setting 5.0 Blood Gas Critical Value Read Back KIHRIG RN Blood Gas Notified Whom LAN Blood Gas Notified Time 11/07/2016 6:01:36 AM Test 11/07/16 06:40 11/07/16 07:00 11/07/16 07:29 11/07/16 08:54 Bedside Glucose 376 H 376 H 284 H Blood Gas Specimen Source Blood arterial Arterial Blood Date Drawn 11/07/2016 7:50:00 AM Arterial Blood pH (Temp corrected) 7.071 *L Arterial Blood pCO2 (Temp correct) 26.5 L Arterial Blood pO2 (Temp corrected) 100.0 H Arterial Blood HCO3 7.5 *L Arterial Blood Base Excess -21.2 L Arterial Blood Oxygen Saturation 96.1 Celestine Test ACCEPTAB Arterial Blood Gas Puncture Site Right Radial Arterial Blood Carboxyhemoglobin 0.3 Arterial Blood Methemoglobin 0.3 Blood Gas A-a O2 Differential 586.5 H Oxyhemoglobin Percent 95.5 Total Hemoglobin 12.1 Blood Gas Temperature 37.0 Blood Gas Respiration Rate 20.0 Blood Gas Actual Respiration Rate 30 Blood Gas Modality VENT - AC FiO2 100.0 Blood Gas Tidal Volume 500.0 Blood Gas Low PEEP Setting 5.0 Blood Gas Critical Value Read Back Tex CHATMAN RN Blood Gas Notified Whom EDD Blood Gas Notified Time 11/07/2016 8:26:00 AM Medications Current Medications Acetaminophen (Tylenol Tab) 650 mg Q6H PRN PO PAIN LEVEL 1-3 OR FEVER; Start at 11:00 Acetaminophen/ Hydrocodone Bitart ([place] (5/325)) 1 tab Q6H PRN PO PAIN LEVEL 4 -6 Last administered on 11/05/16t 09:36; Admin Dose 1 TAB; Start 10/23/16 at 11: 00 Docusate Sodium (Colace) 100 mg Q12H PRN PO CONSTIPATION; Start 10/23/16 at 11: 00 Magnesium Hydroxide (Milk Of Mag) 30 ml DAILY PRN PO CONSTIPATION; Start at 11:00 Bisacodyl (Dulcolax) 5 mg DAILY PRN PO CONSTIPATION; Start 10/23/16 at 11:00 Bisacodyl (Dulcolax Supp) 10 mg DAILY PRN [place] CONSTIPATION; Start 10/23/16 at 11 :00 Montelukast Sodium (Singulair) 10 mg QHS PO Last administered on 11/06/16 21: 22; Admin Dose 10 MG; Start 10/23/16 at 21:00 Salmeterol Xinafoate/ Fluticasone (Advair 500/50 Diskus) 1 inh BID INH Last administered on 11/06/16 09:22; Admin Dose 1 INH; Start 10/23/16 at 21:00 Tiotropium [place] (Spiriva) 1 inh DAILY INH Last administered on 11/06/16 09: 22; Admin Dose 1 INH; Start 10/24/16 at 09:00 Atorvastatin Calcium (Lipitor) 10 mg DAILY@21 PO Last administered on 21:22; Admin Dose 10 MG; Start 10/23/16 at 21:00 Miscellaneous Information 1 ea NOTE XX ; Start 10/23/16 at 18:30 Hydralazine HCl (Apresoline) 10 mg Q6H PRN IV ELEVATED BLOOD PRESSURE Last administered on 10/26/16 11:11; Admin Dose 10 MG; Start 10/24/16 at 14:00 Amlodipine Besylate (Norvasc) 5 mg BID PO Last administered on 11/06/16 09:22 ; Admin Dose 5 MG; Start 10/26/16 at 17:00 Famotidine (Pepcid) 20 mg BID PO Last administered on 11/07/16 09:18; Admin Dose 20 MG; Start 10/31/16 at 21:00 Diltiazem HCl (Cardizem Iv) 10 mg Q4H PRN IV hr>120; Start 11/01/16 at 22:15 Methylprednisolone Sodium Succinate (Solu-Medrol) 40 mg Q8 IV Last administered on 11/07/16 05:30; Admin Dose 40 MG; Start 11/05/16 at 14:00 Miscellaneous Information (Pending Santyl Order For Wound Care) This patient rae... PRN PRN XX WOUND CARE; Start 11/05/16 at 22:00 Heparin Sodium (Porcine) 5000 unit 5,000 unit BID SC ; Start 11/06/16 at 21:00 Meropenem/Sodium Chloride 50 ml @ 100 mls/hr Q12 IVPB Last administered on 09:18; Admin Dose 100 MLS/HR; Start 11/06/16 at 21:00 Metronidazole (Flagyl 500 Mg (Pmx)) 100 ml @ 100 mls/hr Q8 IVPB Last administered on 11/07/16 05:30; Admin Dose 100 MLS/HR; Start 11/06/16 at 14:00 IV Flush 10 ml 10 ml PRN PRN IV IV PROTOCOL; Start 11/06/16 at 15:30 Propofol 100 ml @ 2.4 mls/hr Q12H IV Last administered on 11/07/16 05:25; Admin Dose 9.6 MLS/HR; Start 11/06/16 at 18:00 Sodium Bicarbonate/ Dextrose (Na Bicarb/D5W) 1,150 ml @ 100 mls/hr [id number] IV Last administered on 11/07/16 06:44; Admin Dose 100 MLS/HR; Start 11/06/16 at 19:30 Aspirin (Aspirin) 81 mg DAILY NGT Last administered on 11/07/16 09:18; Admin Dose 81 MG; Start 11/07/16 at 09:00 Dextrose (D50w Syringe) 25 ml Q15M PRN IV DECREASED GLUCOSE; Start 11/07/16 at 06:00 Dextrose 50 ml 50 ml Q15M PRN IV DECREASED GLUCOSE; Start 11/07/16 at 06:00 Epinephrine 4 mg/ Sodium Chloride 250 ml @ 3.75 mls/hr TITRATE IV Last administered on 11/07/16 09:53; Admin Dose 3.75 MLS/HR; Start 11/07/16 at 06:30 Norepinephrine 32 mg/Sodium Chloride 250 ml @ 0.46 mls/hr TITRATE IV Last administered on 11/07/16 09:59; Admin Dose 14.06 MLS/HR; Start 11/07/16 at 07: 45 Phenylephrine HCl 160 mg/Sodium Chloride 500 ml @ 18.75 mls/ hr TITRATE IV Last administered on 11/07/16 09:58; Admin Dose 56.25 MLS/HR; Start 11/07/16 at 07:45 Vasopressin/ Sodium Chloride (Vasostrict/NS) 60 ml @ 1.2 mls/hr Q12H IV ; Start 11/07/16 at 10:00 Diagnostic Test (Pha) (Accu-Chek) 1 ea Q1H XX Last administered on 11/07/16 09 :21; Admin Dose 1 EA; Start 11/07/16 at 07:00 Assessment/Plan Chief Complaint/Hosp Course IMPRESSION: 1. Resolving bronchospasm, likely secondary to acute bronchitis. 2. Hypoxemic respiratory failure complicated by severe metabolic acidosis and acute renal failure. 3. Possible underlying obstructive sleep apnea. 4. Significantly elevated wbc, out of proportion to steroid dose. ? leukemoid reaction appreciate hematology oncology recommendations 5. Acute renal failure. Severe metabolic acidosis with hypokalemia, will likely require acute hemodialysis. PLAN: 1. Continue steroids. Continue mechanical ventilation. 2. Continue current broad-spectrum antibiotics. 3. Continue DVT and GI prophylaxis. 4. Hemodialysis per nephrology. Correction of electrolyte abnormalities. Overall prognosis very poor. Problems: JUDAH NGUYEN MD, [facility] Nov 07, 2016 10:09
--- NOTE | 2016-11-07 10:23 | RADRPT ---
PROCEDURE: Chest 1 views. CLINICAL INDICATION: Shortness of breath TECHNIQUE: AP views of the chest was obtained. COMPARISON: Yesterday FINDINGS: The heart is large. Endotracheal and nasogastric tubes are stable and appear grossly appropriate loc ation. Left-sided PICC line is unchanged. Scattered atelectasis versus mild infiltrates in the bilat eral lower lobes are grossly unchanged. Osseous structures are unchanged. IMPRESSION: Cardiomegaly . Stable scattered atelectasis versus mild infiltrates in the bilateral lower lobes. RPTAT: AA .Cabrera Chan MD, MD Date Time Electronically viewed and signed by .Cabrera Chan MD, MD on 11/07/2016 10:23 .P/
[2016-11-07] MEDS ORDERED: EPINEPHrine 0.1 MG/ML SYG ONE (10:37)
--- NOTE | 2016-11-07 10:55 | EN ---
Date/Time of Note Date/Time of Note DATE: 11/07/16 TIME: 10:52 Event Note Medicine Medicine Event Note Prolonged cardiac arrest, systole. No return of circulation despite 20mins acls protocol. pupils fixed and dilated no breath sounds no heart sounds no gag pronounced 10.39 Patients daughter at bedside throughout commissioner of relocation services at bedside. JUDAH NGUYEN MD, [facility] Nov 07, 2016 10:55
--- NOTE | 2016-11-07 11:06 | CONS ---
Date/Time of Note Date/Time of Note DATE: 11/07/16 TIME: 11:01 Assessment/Plan Assessment/Plan Chief Complaint/Hosp Course #leukocytosis -given the rising WBC count while on steroids, this is most likely a leukemoid reaction. Her respiratory sx are worsening as the WBC count is rising making it more likely that the increasing WBC count is reactive in nature -will review peripheral smear -if there is evidence of malignant or dysplastic cells, will perform studies such as flow cytometry and perform bone marrow bx #Severe respiratory distress 2/2 bronchospasm -continue antibiotics -continue Steroids -pt on BIPAP -management per pulmonary # Urinary tract infection. -this is unlikely contributing cause to leukocytosis -Continue antimicrobials. -Repeat urine cultures negative. Problems: (1) Leukocytosis Status: Acute (2) Asthma exacerbation Status: Acute (3) SIRS (systemic inflammatory response syndrome) Status: Acute Problems: Consultation Date/Type/Reason Admit Date/Time Oct 23, 2016 at 10:25 Initial Consult Date 11/06/16 Type of Consultation: Hematology Reason for Consultation leukocytosis Referring Provider: RAYMOND LARIOS NP 24 HR Interval Summary Free Text/Dictation seen at 8am this morning pt was intubated last night. she is now maxed out on 3 pressors Exam/Review of Systems Vital Signs Vitals Vital Signs Date Time Temp Pulse Resp B/P Pulse Ox O2 Delivery O2 Flow Rate FiO2 11/07/16 09:20 97 20 94 100 11/07/16 07:30 97.6 98/66 11/07/16 06:45 Mechanical Ventilator 11/06/16 10:15 10.0 Intake and Output 11/06/16 11/06/16 11/07/16 14:59 22:59 06:59 Intake Total 500 ml 3141.95 ml 3787.91 ml Output Total 2 ml 3 ml 0 ml Balance 498 ml 3138.95 ml 3787.91 ml Exam Constitutional: alert, frail Head: atraumatic, normocephalic Eyes: nl conjunctiva ENMT: intubated Neck: supple Respiratory: clear to auscultation, normal air movement Cardiovascular: regular rate and rhythm Gastrointestinal: soft Musculoskeletal: swelling Results Result Diagram: 11/07/16 0500 11/07/16 0500 Results 24 hrs Laboratory Tests Test 11/06/16 11:54 11/06/16 15:16 11/06/16 16:37 11/06/16 16:40 Bedside Glucose 229 H 144 Erythrocyte Sedimentation Rate 1 Lactic Acid Level 11.4 *H Blood Gas Specimen Source Blood arterial Arterial Blood Date Drawn 11/06/2016 5:10:33 PM Arterial Blood pH (Temp corrected) 6.885 *L Arterial Blood pCO2 (Temp correct) 46.8 H Arterial Blood pO2 (Temp corrected) 74.4 L Arterial Blood HCO3 8.7 *L Arterial Blood Base Excess -24.9 L Arterial Blood Oxygen Saturation 82.1 L Celestine Test ACCEPTAB Arterial Blood Gas Puncture Site Right Radial Arterial Blood Carboxyhemoglobin 0.3 Arterial Blood Methemoglobin 0.3 Blood Gas A-a O2 Differential 157.0 H Oxyhemoglobin Percent 81.6 L Total Hemoglobin 17.7 Blood Gas Temperature 37.0 Blood Gas Respiration Rate 16.0 Blood Gas Actual Respiration Rate 21 Blood Gas Modality MASK - BIPAP FiO2 40.0 Blood Gas IPAP/EPAP Ratio 15/5 Blood Gas Critical Value Read Back Prince CRAMER Blood Gas Notified Whom JESS Blood Gas Notified Time 11/06/2016 5:28:30 PM Test 11/06/16 19:00 11/06/16 19:43 11/06/16 19:48 11/06/16 20:38 Blood Gas Specimen Source Blood arterial Arterial Blood Date Drawn 11/06/2016 7:45:48 PM Arterial Blood pH (Temp corrected) 7.066 *L Arterial Blood pCO2 (Temp correct) 30.7 L Arterial Blood pO2 (Temp corrected) 239.7 H Arterial Blood HCO3 8.6 *L Arterial Blood Base Excess -20.5 L Arterial Blood Oxygen Saturation 99.0 Celestine Test ACCEPTAB Arterial Blood Gas Puncture Site Right Radial Arterial Blood Carboxyhemoglobin 0.3 Arterial Blood Methemoglobin 0.4 Blood Gas A-a O2 Differential 442.6 H Oxyhemoglobin Percent 98.3 Total Hemoglobin 16.1 Blood Gas Temperature 37.0 Blood Gas Respiration Rate 20.0 Blood Gas Actual Respiration Rate 33 Blood Gas Modality VENT - AC FiO2 100.0 Blood Gas Tidal Volume 500.0 Blood Gas Low PEEP Setting 5.0 Blood Gas Critical Value Read Back BIANKA RUBIO Blood Gas Notified Whom LAN Blood Gas Notified Time 11/06/2016 7:59:03 PM Sodium Level 143 Potassium Level 5.0 Chloride Level 111 H Carbon Dioxide Level 15 L Anion Gap 22 #H Blood Urea Nitrogen 67 H Creatinine 2.57 H Glucose Level 45 #*L Lactic Acid Level 14.2 *H Calcium Level 5.4 *L Magnesium Level 2.9 H Bedside Glucose 92 70 94 Test 11/06/16 20:55 11/07/16 00:20 11/07/16 01:31 11/07/16 03:12 Bedside Glucose 109 266 H 329 H Sodium Level 136 Potassium Level 6.0 H Chloride Level 100 # Carbon Dioxide Level 9 #*L Anion Gap 33 #H Blood Urea Nitrogen 65 H Creatinine 3.04 H Glucose Level 284 #H Calcium Level 6.2 L Test 11/07/16 03:34 11/07/16 05:00 11/07/16 05:04 11/07/16 06:00 Bedside Glucose 358 H 429 *H White Blood Count 45.9 H Red Blood Count 3.75 #L Hemoglobin 11.0 #L Hematocrit 38.1 # Mean Corpuscular Volume 101.6 H Mean Corpuscular Hemoglobin 29.3 Mean Corpuscular Hemoglobin Concent 28.9 L Red Cell Distribution Width 15.5 H Platelet Count 43 #L Mean Platelet Volume 10.2 Neutrophils % Segmented Neutrophils % (Manual) 43 Band Neutrophils % (Manual) 28 H Lymphocytes % Lymphocytes % (Manual) 9 L Monocytes % Monocytes % (Manual) 1 Eosinophils % Eosinophils % (Manual) 3 Basophils % Metamyelocytes % (manual) 7 H Myelocytes % (Manual) 8 H Nucleated Red Blood Cells % 1.4 H Neutrophils # (Manual) 25.6 H Band Neutrophils # 12.8 H Absolute Lymphocytes (Manual) 4.1 H Lymphocytes # Monocytes # Absolute Monocytes (Manual) 0.4 Eosinophils # Basophils # Metamyelocytes # 3.2 H Myelocytes # 3.6 H Nucleated Red Blood Cells # Platelet Estimate DECREASED Poikilocytosis 3+ Anisocytosis 1+ Macrocytosis 1+ Sodium Level 130 L Potassium Level 6.2 *H Chloride Level 98 Carbon Dioxide Level 9 *L Anion Gap 29 H Blood Urea Nitrogen 60 H Creatinine 3.15 H Glucose Level 376 H Calcium Level 5.9 *L Phosphorus Level 17.0 #H Magnesium Level 2.9 H Creatine Kinase 1062 H Creatine Kinase Index 3.4 Creatinine Kinase MB (Mass) 36.30 H Troponin I 0.564 *H Blood Gas Specimen Source Blood arterial Arterial Blood Date Drawn 11/07/2016 5:50:22 AM Arterial Blood pH (Temp corrected) 6.915 *L Arterial Blood pCO2 (Temp correct) 30.7 L Arterial Blood pO2 (Temp corrected) 76.4 L Arterial Blood HCO3 6.1 *L Arterial Blood Base Excess -25.7 L Arterial Blood Oxygen Saturation 88.2 L Celestine Test ACCEPTAB Arterial Blood Gas Puncture Site Right Radial Arterial Blood Carboxyhemoglobin 0.3 Arterial Blood Methemoglobin 0.4 Blood Gas A-a O2 Differential 317.6 H Oxyhemoglobin Percent 87.6 L Total Hemoglobin 12.5 Blood Gas Temperature 37.0 Blood Gas Respiration Rate 20.0 Blood Gas Actual Respiration Rate 21 Blood Gas Modality VENT - AC FiO2 60.0 Blood Gas Tidal Volume 500.0 Blood Gas Low PEEP Setting 5.0 Blood Gas Critical Value Read Back BIANKA RUBIO Blood Gas Notified Whom LAN Blood Gas Notified Time 11/07/2016 6:01:36 AM Test 11/07/16 06:40 11/07/16 07:00 11/07/16 07:29 11/07/16 08:54 Bedside Glucose 376 H 376 H 284 H Blood Gas Specimen Source Blood arterial Arterial Blood Date Drawn 11/07/2016 7:50:00 AM Arterial Blood pH (Temp corrected) 7.071 *L Arterial Blood pCO2 (Temp correct) 26.5 L Arterial Blood pO2 (Temp corrected) 100.0 H Arterial Blood HCO3 7.5 *L Arterial Blood Base Excess -21.2 L Arterial Blood Oxygen Saturation 96.1 Celestine Test ACCEPTAB Arterial Blood Gas Puncture Site Right Radial Arterial Blood Carboxyhemoglobin 0.3 Arterial Blood Methemoglobin 0.3 Blood Gas A-a O2 Differential 586.5 H Oxyhemoglobin Percent 95.5 Total Hemoglobin 12.1 Blood Gas Temperature 37.0 Blood Gas Respiration Rate 20.0 Blood Gas Actual Respiration Rate 30 Blood Gas Modality VENT - AC FiO2 100.0 Blood Gas Tidal Volume 500.0 Blood Gas Low PEEP Setting 5.0 Blood Gas Critical Value Read Back Tex CHATMAN RN Blood Gas Notified Whom EDD Blood Gas Notified Time 11/07/2016 8:26:00 AM Test 11/07/16 10:05 11/07/16 10:33 Bedside Glucose 291 H 325 H Medications Medications Current Medications Acetaminophen (Tylenol Tab) 650 mg Q6H PRN PO PAIN LEVEL 1-3 OR FEVER; Start at 11:00 Acetaminophen/ Hydrocodone Bitart ([place] (5/325)) 1 tab Q6H PRN PO PAIN LEVEL 4 -6 Last administered on 11/05/16 09:36; Admin Dose 1 TAB; Start 10/23/16 at 11: 00 Docusate Sodium (Colace) 100 mg Q12H PRN PO CONSTIPATION; Start 10/23/16 at 11: 00 Magnesium Hydroxide (Milk Of Mag) 30 ml DAILY PRN PO CONSTIPATION; Start at 11:00 Bisacodyl (Dulcolax) 5 mg DAILY PRN PO CONSTIPATION; Start 10/23/16 at 11:00 Bisacodyl (Dulcolax Supp) 10 mg DAILY PRN [place] CONSTIPATION; Start 10/23/16 at 11 :00 Montelukast Sodium (Singulair) 10 mg QHS PO Last administered on 11/06/16 21: 22; Admin Dose 10 MG; Start 10/23/16 at 21:00 Salmeterol Xinafoate/ Fluticasone (Advair 500/50 Diskus) 1 inh BID INH Last administered on 11/06/16 09:22; Admin Dose 1 INH; Start 10/23/16 at 21:00 Tiotropium [place] (Spiriva) 1 inh DAILY INH Last administered on 11/06/16 09: 22; Admin Dose 1 INH; Start 10/24/16 at 09:00 Atorvastatin Calcium (Lipitor) 10 mg DAILY@21 PO Last administered on 21:22; Admin Dose 10 MG; Start 10/23/16 at 21:00 Miscellaneous Information 1 ea NOTE XX ; Start 10/23/16 at 18:30 Hydralazine HCl (Apresoline) 10 mg Q6H PRN IV ELEVATED BLOOD PRESSURE Last administered on 10/26/16 11:11; Admin Dose 10 MG; Start 10/24/16 at 14:00 Amlodipine Besylate (Norvasc) 5 mg BID PO Last administered on 11/06/16 09:22 ; Admin Dose 5 MG; Start 10/26/16 at 17:00 Famotidine (Pepcid) 20 mg BID PO Last administered on 11/07/16 09:18; Admin Dose 20 MG; Start 10/31/16 at 21:00 Diltiazem HCl (Cardizem Iv) 10 mg Q4H PRN IV hr>120; Start 11/01/16 at 22:15 Methylprednisolone Sodium Succinate (Solu-Medrol) 40 mg Q8 IV Last administered on 11/07/16 05:30; Admin Dose 40 MG; Start 11/05/16 at 14:00 Miscellaneous Information (Pending Santyl Order For Wound Care) This patient rae... PRN PRN XX WOUND CARE; Start 11/05/16 at 22:00 Heparin Sodium (Porcine) 5000 unit 5,000 unit BID SC ; Start 11/06/16 at 21:00 Meropenem/Sodium Chloride 50 ml @ 100 mls/hr Q12 IVPB Last administered on 09:18; Admin Dose 100 MLS/HR; Start 11/06/16 at 21:00 Metronidazole (Flagyl 500 Mg (Pmx)) 100 ml @ 100 mls/hr Q8 IVPB Last administered on 11/07/16 05:30; Admin Dose 100 MLS/HR; Start 11/06/16 at 14:00 IV Flush 10 ml 10 ml PRN PRN IV IV PROTOCOL; Start 11/06/16 at 15:30 Propofol 100 ml @ 2.4 mls/hr Q12H IV Last administered on 11/07/16 05:25; Admin Dose 9.6 MLS/HR; Start 11/06/16 at 18:00 Sodium Bicarbonate/ Dextrose (Na Bicarb/D5W) 1,150 ml @ 100 mls/hr [id number] IV Last administered on 11/07/16 06:44; Admin Dose 100 MLS/HR; Start 11/06/16 at 19:30 Aspirin (Aspirin) 81 mg DAILY NGT Last administered on 11/07/16 09:18; Admin Dose 81 MG; Start 11/07/16 at 09:00 Dextrose (D50w Syringe) 25 ml Q15M PRN IV DECREASED GLUCOSE; Start 11/07/16 at 06:00 Dextrose 50 ml 50 ml Q15M PRN IV DECREASED GLUCOSE; Start 11/07/16 at 06:00 Epinephrine 4 mg/ Sodium Chloride 250 ml @ 3.75 mls/hr TITRATE IV Last administered on 11/07/16 09:53; Admin Dose 3.75 MLS/HR; Start 11/07/16 at 06:30 Norepinephrine 32 mg/Sodium Chloride 250 ml @ 0.46 mls/hr TITRATE IV Last administered on 11/07/16 09:59; Admin Dose 14.06 MLS/HR; Start 11/07/16 at 07: 45 Phenylephrine HCl 160 mg/Sodium Chloride 500 ml @ 18.75 mls/ hr TITRATE IV Last administered on 11/07/16 09:58; Admin Dose 56.25 MLS/HR; Start 11/07/16 at 07:45 Vasopressin/ Sodium Chloride (Vasostrict/NS) 60 ml @ 1.2 mls/hr Q12H IV ; Start 11/07/16 at 10:00 Diagnostic Test (Pha) (Accu-Chek) 1 ea Q1H XX Last administered on 11/07/16 09 :21; Admin Dose 1 EA; Start 11/07/16 at 07:00 LEXI HUDDLESTON M.D. Nov 07, 2016 11:06
--- NOTE | 2016-11-07 18:01 | PN ---
DATE: 11/07/2016 SUBJECTIVE DATA: The patient has had a clinical decline in the last 12 hours. She went into respiratory failure, intubated, went into shock on multiple pressors. The patient is aneuric and hypokalemic. I attempted to contact the patient's family this morning to discuss initiation of hemodialysis. We will attempt again. OBJECTIVE DATA: VITAL SIGNS: Currently blood pressure 98/68, respirations 30, pulse 98, temperature 97.6. EXTREMITIES: The patient is critically ill. HEENT: Head is normocephalic. Pupils are reactive. NECK: Supple. CARDIAC: Heart is tachycardic. LUNGS: Diminished breath sounds at the base. ABDOMEN: Soft, nontender to palpation. No rebound or guarding. EXTREMITIES: Negative for clubbing, cyanosis. No edema. DERMATOLOGIC: Clean. No rashes. MUSCULOSKELETAL: No joint effusion. NEUROLOGIC: No change in exam. MEDICATIONS: Reviewed. LABORATORY AND DIAGNOSTIC DATA: Shows a pH 6.9, pCO2 30, bicarb 6, sodium 130, potassium 6.2, chloride 98, BUN 60, creatinine 3.15. Lactic acid 5.9. Chest x-ray on 11/06/2016 shows no acute cardiopulmonary disease, atelectasis. ASSESSMENT AND PLAN: 1. Aneuric acute kidney injury with previous baseline creatinine 0.71 mg/dL. Etiology secondary to acute tubular necrosis (ATN) and septic acute kidney injury (JAY). Etiology is likely multifactorial secondary to acute tubular necrosis (ATN) due to septic acute kidney injury (JAY) and ischemic hypoperfusion., shock, possible contrast associated nephropathy. The patient currently is in severe renal failure, hypokalemic, severely acidemic. The patient will require hemodialysis. I have attempted to contact patient's family to discuss initiation of dialysis and goals of care. At this point, would continue medical management with bicarbonate drip. Continue pressor support and intravenous fluids. Monitor closely. 2. Hyperkalemia secondary to acute kidney injury and severe acidemia. Continue bicarbonate drip. The patient is status post bicarbonate push. We will attempt hemodialysis if family agrees on a low potassium bath. Monitor closely. 3. Severe anion gap metabolic acidosis secondary to lactic acidosis and acute kidney injury. The patient is on bicarbonate drip, but remains severely acidemic. We will attempt hemodialysis on high bicarbonate bath. If the patient is hemodynamically stable. 4. Septic shock. Underlying source unclear. Continue broad spectrum antibiotics and intravenous (IV) fluids and pressor support. 5. Ventilatory-dependent respiratory failure. Vent settings reviewed. Arterial blood gases (ABGs) reviewed. 6. Mineral bone disorder. Monitor calcium and phosphorus levels. 7. Diabetes. Continue current insulin regimen. 8. Acute encephalopathy, etiology is toxic metabolic. 9. Hyponatremia secondary to acute kidney injury and hyperglycemia. Continue to monitor. 10. Anemia. Monitor hemoglobin and hematocrit levels. Please note, I spent over 40 minutes of critical care time with this patient. Dictated By: Wojciech Pierson DO /dmitry/john /Document#: [id number]
[2016-11-08 14:32] LABS: MYELOPEROXIDASE ANTIBODY <1.0 AI; PROTEINASE-3 ANTIBODY <1.0 AI
--- NOTE | 2016-11-10 14:41 | DES ---
Date/Time of Note Date/Time of Note DATE: 11/10/16 TIME: Discharge/ Summary Admission/Discharge Info Admit Date/Time Oct 23, 2016 at 10:25 Discharge Date/Time Nov 07, 2016 at 10:39 Final Diagnosis 1. Cardiopulmonary arrest, Asystole Preliminary Cause of 1. Acute hypoxic respiratory failure. 2. Probable infectious or inflammatory process throughout both lung carlos with peribronchial thickening and peribronchial and septal nodularity with some more discrete nodular opacities. Possible underlying aspiration 3. Leukocytosis. Suspect to be multifactorial from underlying steroid use and infectious process. 4. Urinary tract infection. 5. Type 2 diabetes mellitus. 6. Hyperdynamic left ventricular systolic function. 7. Acute kidney injury. Hospital Course This is an 81-year-old female with history of asthma and hypertension and dyslipidemia was brought to [facility] due to worsening of shortness of breath and clinical picture of asthma exacerbation. Patient was consulted by esthetician makeup artist due to her respiratory distress. She was noted with acute hypoxic respiratory failure. She did have imaging with a CTA to evaluate for pulmonary embolism which was negative. She was on physical exam noted to be with active bronchospasm. She was optimized with bronchodilators as well as a steroid treatment. Patient was brought to ICU because of worsening respiratory distress. After reviewing the CT scan of her chest it was noted that she likely had a suspect infectious process throughout her lung carlos with peribronchial thickening noted with peribronchial and septal nodularity seen as well. It was suspect that the patient did aspirate. Due to her debility she was also seen by speech therapist that helped her with her oral diet. We did get infectious disease physician to follow her and place her on appropriate antibiotics. Of note she was also seen with a urinary tract infection with E. coli. She was optimized on antibiotic therapy for this as well. Patient did persists with some leukocytosis however her range did go as high as 47.2. We did get nuclear engineering technician to evaluate her for this issue and it was likely that the rise in her white count was secondary to leukemoid reaction. During her stay she also encountered some acute renal insufficiency for which we did get a community organization aide to follow her. we did try to monitor her electrolytes and also renally dose her medications. It was noted that despite optimal medical efforts her respiratory status was difficult to recover. On November 06, 2016 it was noted that patient did have CODE BLUE and CPR was initiated. She was given bicarbonate as well as epinephrine and fluids. She was placed on vasopressors for hemodynamic stability. She was also intubated for airway protection. She was noted to be metabolically acidotic. Patient's prognosis overall remains poor. On November 07, 2016 patient again suffered from cardiac arrest with asystole. After round of ACLS was provided she had no recovery. Pupils were noted to be fixed and dilated with no breath sounds or heart sounds or gag reflex. Patient was pronounced at 10:39 AM on November 07, 2016. Family was at bedside. Discussed case with Dr. Le Pending Labs/Cultures Laboratory Tests Test 11/10/16 11:46 Lab Scanned Report REFERENCE [id number] AN ORDONEZ Nov 10, 2016 14:37
== END 2016-11-07 10:39 | disposition expired | DRG 208 ==
LOC: E/R 07:52 → TEL 10:25 → ICU 11-02 18:27 → MS4 11-04 19:30 → ICU 11-06 10:25
PROVIDERS: ADMIT Internal Medicine; ATTEND Internal Medicine
PROC: 0BH17EZ Insertion of Endotracheal Airway into Trachea, Via Natural or Artificial Opening (ICD-10-PCS; principal; 2016-11-06)
PROC: 5A1935Z Respiratory Ventilation, Less than 24 Consecutive Hours (ICD-10-PCS; 2016-11-06)
PROC: 5A12012 Performance of Cardiac Output, Single, Manual (ICD-10-PCS; 2016-11-06)
PROC: 02HV33Z Insertion of Infusion Device into Superior Vena Cava, Percutaneous Approach (ICD-10-PCS; 2016-11-06)
PROC: 5A09357 Assistance with Respiratory Ventilation, Less than 24 Consecutive Hours, Continuous Positive Airway Pressure (ICD-10-PCS; 2016-11-06)
DX: J44.0 Chronic obstructive pulmonary disease with (acute) lower respiratory infection (principal); J96.01 Acute respiratory failure with hypoxia; N17.0 Acute kidney failure with tubular necrosis; J69.0 Pneumonitis due to inhalation of food and vomit; R57.9 Shock, unspecified; I50.31 Acute diastolic (congestive) heart failure; E87.2 Acidosis; G93.40 Encephalopathy, unspecified; J45.901 Unspecified asthma with (acute) exacerbation; N39.0 Urinary tract infection, site not specified; E87.1 Hypo-osmolality and hyponatremia; I46.9 Cardiac arrest, cause unspecified; E87.5 Hyperkalemia; E11.9 Type 2 diabetes mellitus without complications; B96.20 Unspecified Escherichia coli [E. coli] as the cause of diseases classified elsewhere; E78.5 Hyperlipidemia, unspecified; D72.823 Leukemoid reaction; G47.33 Obstructive sleep apnea (adult) (pediatric); I11.0 Hypertensive heart disease with heart failure; J20.9 Acute bronchitis, unspecified; E66.9 Obesity, unspecified; Z68.30 Body mass index [BMI] 30.0-30.9, adult
CPT/HCPCS: 31500; 36569; 36600; 71010; 71275; 76775; 76937; 80048; 80053; 81001; 82550; 82553; 82803; 82962; 83036; 83605; 83735; 83880; 84100; 84145; 84484; 85025; 85651; 86021; 86606; 86635; 87040; 87081; 87086; 92610; 92950; 93005; 93306; 94002; 94003; 94640; 94644; 94660; 94664; 94770; 96374; 97003; 97162; 97166; 97535; C1769; J0171; J0360; J0610; J1650; J1815; J1940; J1956; J2185; J2370; J2543; J2920; J2930; J3370; J7030; J7040; J7050; J7060; J7070; J7512; P9045; Q9967